=== PATIENT | female | born 1970 | race African-American/Black ===

== ENCOUNTER 2019-03-29 01:19 | Day surgery (SDC) | payer BC, OTHER, SELFPAY ==
[2019-03-25 16:07] VITALS: BMI 40.1
--- NOTE | 2019-03-29 07:57 | WPDANESEPPF ---
Anes - Initial Pre Proc Eval Procedure: Operation Date: 03/29/19 09:00 Proposed Procedures p Colonoscopy, Possible Esophagogastroduodenoscopy - Mateusz Gaston MD Date/Time: 03/29/19 07:57 Surgeon: Mateusz Gaston MD Pre Op Diagnosis: Iron Deficiency Anemia Patient Data Age: 48 Gender: F Height: 5 ft 6 in Weight: 113 kg Allergies Allergy/AdvReac Type Severity Reaction Status Date / Time No Known Allergies Allergy Mild Verified 03/25/19 16:03 Home Medications Medication Instructions Recorded Confirmed Type ferrous sulfate 325 mg (65 mg 325 mg PO TID #270 tablet 12/24/18 03/25/19 Rx iron) tablet cholecalciferol (vitamin D3) 2,000 unit PO DAILY 03/11/19 03/25/19 History [Vitamin D3] lurasidone [Latuda] 40 mg PO DAILY 03/11/19 03/25/19 History tramadol [Ultram] 50 mg PO Q12H PRN 03/25/19 03/25/19 History Patient hx anesthesia problems: none Family hx anesthesia problems: none [facility] Past Medical History Medical History (Updated 03/29/19 @ 07:57 by Fredrick Oliva MD) Abnormal uterine bleeding Anemia Arthritis Bipolar 1 disorder GERD (gastroesophageal reflux disease) Ulcer Surgical History Surgical History (Updated 02/13/19 @ 22:05 by Cassy Hamilton) History of gastric surgery for weight loss History of tubal ligation Hx of section Family History Family History (System 01/03/19 @ 14:33 by Ema Day) Mother Hypertension Family history of diabetes mellitus in first degree relative Mother Family history of type 2 diabetes mellitus Other Diabetes mellitus Social History Social History (System 01/03/19 @ 14:33 by Ema Day) Smoking status: Never smoker Second hand tobacco smoke exposure: No Alcohol intake: current Gender identity (if verbalized by the patient): Female Anes - Eval Final PreProcedure Day of Procedure 03/29/19 07:57 Patient weight: morbidly obese Heart: regular rate and rhythm Lungs: clear to auscultation Airway: Mallampati scale class II Neurological: alert and oriented Last oral intake: >/= 8 hours ASA classification: III Emergent: no Anesthetic plan: proceed Anesthesia type and monitoring: general GIVS and standard monitoring Informed Consent: The patient's anesthetic plan and its attendant risks and benefits were discussed with the patient/family/POA. Questions were solicited and answers provided to the satisfaction of the patient/family/POA.
[2019-03-29 08:14] VITALS: BP 137/90; PULSE 84; RESP 20; TEMP 37.1; O2SAT 100; BMI 39.6
[2019-03-29] MEDS: LACTATED RINGERS 1,000 ML 150 ML IV CONT (08:17)
--- NOTE | 2019-03-29 09:08 | P.CONGI_ITS ---
Assessment and Plan Additional Plan This a 48-year-old black female patient seen in evaluation at the request Dr. Leonard. Also followed by Dr. Erickson. Patient reports that 1 year ago was found to have iron deficiency anemia. She had extreme fatigue at that time. She is improved with iron infusions and oral iron supplementation. patient denies any abdominal pain. She denies any signs of blood loss. Her bowel movements are normal. She denies pain. Her past history is significant for gastric bypass in October of 2017. Current medications include tramadol. Cetirizine. Her go Calciferol. Nitrofurantoin. Calcium. B12. Family history is noncontributory. Physical exam reveals her to be alert. Vital signs stable. HEENT exam unremarkable. Lungs are clear to auscultation and percussion. Heart is without murmur or extra sounds. Abdominal exam is obese. Bowel sounds are present soft nontender with no organomegaly. Digital external rectal exam is normal. Impression 1 iron deficiency anemia. 2. History of gastric bypass. It is possible that the iron deficiency is from her previous bypass. Plan is to evaluate for further with GI endoscopy. Continued iron replacement is advised. Further recommendations will be given after endoscopy. GI Consult Note Consult date/time: 03/29/19 09:08 HPI: Blanca Dinero is a 48 year old female [facility] Past Medical History Medical History (Updated 03/29/19 @ 07:57 by Fredrick Oliva MD) Abnormal uterine bleeding Anemia Arthritis Bipolar 1 disorder GERD (gastroesophageal reflux disease) Ulcer Surgical History Surgical History (Updated 02/13/19 @ 22:05 by Cassy Hamilton) History of gastric surgery for weight loss History of tubal ligation Hx of section Family History Family History (System 01/03/19 @ 14:33 by Ema Day) Mother Hypertension Family history of diabetes mellitus in first degree relative Mother Family history of type 2 diabetes mellitus Other Diabetes mellitus Social History Social History (System 01/03/19 @ 14:33 by Ema Day) Smoking status: Never smoker Second hand tobacco smoke exposure: No Alcohol intake: current Gender identity (if verbalized by the patient): Female Meds Home Medications and Allergies Home Medications Medication Instructions Recorded Confirmed Type ferrous sulfate 325 mg (65 mg 325 mg PO TID #270 tablet 12/24/18 03/29/19 Rx iron) tablet cholecalciferol (vitamin D3) 2,000 unit PO DAILY 03/11/19 03/25/19 History [Vitamin D3] lurasidone [Latuda] 40 mg PO DAILY 03/11/19 03/29/19 History tramadol [Ultram] 50 mg PO Q12H PRN 03/25/19 03/25/19 History Allergies Allergy/AdvReac Type Severity Reaction Status Date / Time No Known Allergies Allergy Mild Verified 03/29/19 08:11 Vital Signs Vital Signs - 24 hr 03/29/19 08:14 Temperature 37.1 C Pulse Rate 84 Respiratory Rate 20 Blood Pressure 137/90 Pulse Oximetry 100
[2019-03-29 11:01] VITALS: BP 118/86; PULSE 85; RESP 18; O2SAT 100
[2019-03-29 11:11] VITALS: BP 123/84; PULSE 74; RESP 19; O2SAT 100
[2019-03-29 11:21] VITALS: BP 141/92; PULSE 68; RESP 16; O2SAT 100
== END 2019-03-29 11:28 | disposition home or self-care (01) ==
PROVIDERS: PCP Family Medicine; Referring Provider Internal Medicine Hematology & Oncology; Visit Provider Internal Medicine Gastroenterology
PROC: 0DJ08ZZ Inspection of Upper Intestinal Tract, Via Natural or Artificial Opening Endoscopic (ICD-10-PCS; CPT 43235; principal; 2019-03-29 09:00)
DX: D50.9 Iron deficiency anemia, unspecified (principal); Z98.84 Bariatric surgery status; K64.8 Other hemorrhoids
CPT/HCPCS: 43235; 45378; J2704; J7120

== ENCOUNTER 2019-08-05 15:22 | Outpatient (CLI) | payer BC, OTHER, SELFPAY ==
[2019-08-05 15:40] LABS: Hematocrit 27.1 % (37.0-47.0); Hemoglobin 7.6 g/dL (12.0-15.0); Mean Corpuscular Hemoglobin 23.3 pg (26-34); Mean Corpuscular Volume 83.1 fl (80-100); Mean Platelet Volume 8.6 fl (7.4-10.4); Platelet Count Result 557 k/mm3 (150-375); Red Blood Count 3.26 M/mm3 (4.2-5.4); Red Cell Distribution Width 16.7 % (11.5-14.5); White Blood Count 8.3 K/mm3 (4.5-10.0)
[2019-08-05 16:33] LABS: Iron 19 ug/dL (37-170)
[2019-08-05 16:42] LABS: Percent Iron Saturation 5 % (20-50)
[2019-08-05 17:09] LABS: Ferritin 5.89 ng/mL (6.24-137)
== END 2019-08-05 15:23 | disposition home or self-care (01) ==
PROVIDERS: PCP Family Medicine; Visit Provider Internal Medicine Hematology & Oncology
DX: D50.9 Iron deficiency anemia, unspecified (principal)
CPT/HCPCS: 36415; 82728; 83540; 83550; 85027

== ENCOUNTER 2020-02-22 09:31 | Outpatient (CLI) | payer BC, SELFPAY ==
[2020-02-22 11:29] LABS: Iron 57 ug/dL (37-170)
[2020-02-22 11:33] LABS: Hematocrit 25.4 % (37.0-47.0); Mean Corpuscular HGB Conc 27.6 g/dl (32-36); Mean Corpuscular Volume 76.3 fl (80-100); Mean Platelet Volume 9.1 fl (7.4-10.4); Platelet Count Result 504 k/mm3 (150-375); Red Blood Count 3.33 M/mm3 (4.2-5.4); Red Cell Distribution Width 16.8 % (11.5-14.5); White Blood Count 8.9 K/mm3 (4.5-10.0)
[2020-02-22 11:39] LABS: Percent Iron Saturation 13 % (20-50)
[2020-02-22 12:04] LABS: Ferritin 4.42 ng/mL (6.24-137)
== END 2020-02-22 09:32 | disposition home or self-care (01) ==
PROVIDERS: PCP Family Medicine; Visit Provider Internal Medicine Hematology & Oncology
DX: D50.9 Iron deficiency anemia, unspecified (principal)
CPT/HCPCS: 36415; 82728; 83540; 83550; 85027

== ENCOUNTER 2020-02-24 10:57 | Emergency (ER) | payer BC, SELFPAY ==
--- NOTE | ~2020-02-24 | XR_ITS ---
XR femur RT min 2V 02/24/2020 11:51 Indication: Right leg pain Procedure: 2 views right femur Comparison: No prior studies for comparison. Findings: There is osteoarthritis of the right knee. No acute fracture or traumatic malalignment. No lytic or blastic lesions. No significant soft tissue abnormality. No foreign bodies. Impression: 1: No acute bone or joint abnormality. 2: Moderate osteoarthritis of the right knee. Reviewed, dictated and finalized at location A. [employer] Impression: 1: No acute bone or joint abnormality. 2: Moderate osteoarthritis of the right knee.
[2020-02-24 11:09] VITALS: BP 156/92; PULSE 87; RESP 20; TEMP 36.5; O2SAT 99
--- NOTE | 2020-02-24 11:33 | ED.LOWEXIN ---
HPI - Extremity Injury (Lower) General Chief Complaint: Extremity Injury, Lower Stated Complaint: RT hip pain Time Seen by Provider: 02/24/20 11:18 Source: RN notes reviewed History of Present Illness HPI Narrative: Patient presents emergency department from home for right mid thigh pain. States the pain began Monday has been present since that time. Pain worse with movement of the leg denies any direct trauma or injury. She denies any pain in the back or buttocks denies any pain in the knee or ankle states she has been taking [id number] medication with minimal relief with last dose yesterday. States she does have a history of anemia and just had her blood checked on the second and follows with Dr. Davila for chronic anemia she denies any fevers or chills abdominal pain bowel or bladder incontinence or any other symptoms Related Data Home Medications Medication Instructions Recorded Confirmed lurasidone 80 mg tablet 80 mg PO DAILY 06/20/19 09/20/19 Allergies Allergy/AdvReac Type Severity Reaction Status Date / Time No Known Allergies Allergy Mild Verified 02/24/20 11:22 Review of Systems Review of Systems: Narrative: Gen.: Denies fevers or chills ENT: Denies congestion Respiratory: Denies shortness of breath or cough CV: Denies chest pain or palpitations GI: Denies abdominal pain nausea, emesis or diarrhea denies bowel or bladder incontinence Musculoskeletal: See HPI Neuro: Denies numbness, tingling, weakness or focal weakness Skin: Denies rash Except as documented, all other systems reviewed and negative PMFSH Past Medical History Medical History Abnormal uterine bleeding Anemia Arthritis Bipolar 1 disorder GERD (gastroesophageal reflux disease) Hyperlipidemia, unspecified Iron deficiency anemia Osteoarthritis Type 2 diabetes mellitus without complications Ulcer Vitamin D deficiency Surgical History Surgical History (Updated 06/20/19 @ 17:14 by Kassi Freedman MD) History of gastric bypass History of gastric surgery for weight loss History of tubal ligation Hx of section Family History Family History (System 01/03/19 @ 14:33 by Ema Day) Mother Hypertension Family history of diabetes mellitus in first degree relative Mother Family history of type 2 diabetes mellitus Other Diabetes mellitus Social History Social History Smoking status: Never smoker Second hand tobacco smoke exposure: No Alcohol intake: current Gender identity (if verbalized by the patient): Female Exam Narrative: Exam Narrative: APPEARANCE: No acute distress, nontoxic, resting in bed EYES: EOMI HEENT: Normocephalic, atraumatic, OMM RESPIRATORY: No respiratory distress Clear to auscultation bilaterally with no rhonchi wheezing or rales. CARDIOVASCULAR: Regular rate and rhythm without murmurs rubs or gallops. ABDOMINAL: Soft, nontender, nondistended, no rebound or guarding MUSCULOSKELETAl: Moves all extremities. No clubbing, cyanosis or edema. Tender palpation of the right mid to proximal thigh no overlying swelling or ecchymosis no tenderness of the hip or knee with full range of motion of both pain with flexion of the hip greater than 45 degrees no tenderness of the buttock Back: No midline thoracic lumbar tenderness palpation NEURO: Awake and alert. Following commands, speech normal, no focal deficits SKIN:: Warm, dry. No rashes lesions or abrasions PSYCHIATRIC: Normal affect/mood, Course Course Emergency Course: Reviewed old records including previous hemoglobin Discussed with Dr. boles patient's hemoglobin results. CT is consistent with prior and will follow as outpatient Discussed with patient results of workup and diagnosis. Discussed need for follow-up with primary care, proper use of medication, and reasons to return to the emergency department. Patient un
[2020-02-24 14:07] VITALS: BP 148/88; PULSE 78; RESP 18; O2SAT 100
== END 2020-02-24 14:11 | disposition home or self-care (01) ==
PROVIDERS: Emergency Provider Emergency Medicine; PCP Family Medicine
DX: M54.31 Sciatica, right side (principal); Z86.2 Personal history of diseases of the blood and blood-forming organs and certain disorders involving the immune mechanism; K21.9 Gastro-esophageal reflux disease without esophagitis; E78.5 Hyperlipidemia, unspecified; E11.9 Type 2 diabetes mellitus without complications; E55.9 Vitamin D deficiency, unspecified; M17.11 Unilateral primary osteoarthritis, right knee
CPT/HCPCS: 73552; 99283

== ENCOUNTER 2021-01-13 16:50 | Emergency (ER) | payer BC, SELFPAY ==
[2021-01-13 16:54] VITALS: BP 150/93; PULSE 91; RESP 16; TEMP 36.7; O2SAT 100
--- NOTE | 2021-01-13 17:00 | ED.EXTPRO ---
HPI - Extremity Problem General Chief complaint: Extremity Problem,Nontraumatic Stated complaint: L FOOT PAIN Time Seen by Provider: 01/13/21 17:00 Source: patient Mode of arrival: ambulatory Limitations: no limitations History of Present Illness HPI Narrative: Blanca Dinero is 50 yo female with a PMH of bipolar disorder who comes to express care with pain across top of L foot x 1 week. states it hurts to even touch it. No swelling, redness, or warmth Related Data Home Medications Medication Instructions Recorded Confirmed lurasidone 80 mg tablet 80 mg PO DAILY 06/20/19 01/13/21 Allergies Allergy/AdvReac Type Severity Reaction Status Date / Time No Known Allergies Allergy Mild Verified 01/13/21 16:58 Review of Systems Review of Systems: CONSTITUTIONAL: Denies fever, chills, sweats. EYES: Denies visual changes, redness, discharge. ENT: Denies rhinorrhea, congestion, sore throat, otalgia. CARDIOVASCULAR: Denies chest pain, palpitations, edema. RESPIRATORY: Denies dyspnea, wheezing, cough GASTROINTESTINAL: Denies abdominal pain, nausea, vomiting, diarrhea. GENITOURINARY: Denies dysuria, hematuria, abnormal discharge SKIN: Denies rash or itching. NEUROLOGIC: Denies numbness, or focal weakness. PSYCHIATRIC: Denies anxiety or depression. Left dorsal foot pain x1 week PMFSH Past Medical History Medical History Abnormal uterine bleeding Anemia Arthritis Bipolar 1 disorder GERD (gastroesophageal reflux disease) Hyperlipidemia, unspecified Iron deficiency anemia Osteoarthritis Type 2 diabetes mellitus without complications Ulcer Vitamin D deficiency Surgical History Surgical History History of gastric bypass (~2018) History of gastric surgery (~2018) for weight loss History of tubal ligation (~2004) Hx of section (~2014) Family History Family History Mother Hypertension Family history of diabetes mellitus in first degree relative Mother Family history of type 2 diabetes mellitus Other Diabetes mellitus Social History Social History Smoking status: Never smoker Second hand tobacco smoke exposure: No Alcohol intake: current Substance use: never Substance use type: does not use Gender identity (if verbalized by the patient): Female Comments At time of signature, I agree with nursing past medical, surgical, social and family history. There is no relevant family history pertinent to the presenting complaint. Exam Narrative: GENERAL: This is a well-nourished, well-developed patient, in mild distress. HEAD: normocephalic, atraumatic. EYES:Sclera clear/white. Vision is grossly intact. EARS: External ears normal, Hearing grossly intact. NOSE: External nose normal without nasal discharge, nares without redness, no rhinorrhea. THROAT: Mucous membranes moist, NECK: Neck supple, non-tender CARDIOVASCULAR: Regular rate and rhythm without murmurs, gallops, or rubs. RESPIRATORY: Clear to auscultation. Breath sounds equal bilaterally. No wheezes, rales, or rhonchi. GASTROINTESTINAL: Abdomen soft, SKIN: warm, intact with no suspicious lesions or rash, good texture and turgor. NEURO: awake, alert, and oriented to person, place and time. There were no obvious focal neurologic abnormalities. Steady gait EXTREMITIES: Normal range of motion. Left dorsal foot pain 2+ pedal pulse is able to flex and extend ankle and move toes with pain; color but no edema, redness, or warmth BACK: Nontender without deformity Course Course Emergency Course: Patient comes with exquisite tenderness to the top of the foot without known injury are trauma her foot is only mildly discolored but no swelling no heat no redness Started on colchicine and tramadol-discussed resting foot, weight loss cheryle
== END 2021-01-13 17:27 | disposition home or self-care (01) ==
PROVIDERS: Emergency Provider Nurse Practitioner; PCP Family Medicine
DX: M10.9 Gout, unspecified (principal); E78.5 Hyperlipidemia, unspecified; E11.9 Type 2 diabetes mellitus without complications
CPT/HCPCS: 99213; G0463

== ENCOUNTER → 2021-09-22 13:50 | Outpatient (CLI) | payer BC, SELFPAY ==
--- NOTE | ~2021-09-22 | XR_ITS ---
XR cervical spine 4-5V DATE: 09/22/2021 14:15 INDICATION: Swelling, mass, lump TECHNIQUE: AP, open-mouth, lateral, swimmer views COMPARISON: None FINDINGS: Mild reversal cervical curvature. C1 and C2 are normally aligned and the odontoid process is intact. No fracture or dislocation or locked facet or prevertebral soft tissue swelling is detected. Mild degenerative disc disease of the mid and lower cervical spine. IMPRESSION: Reversal cervical curvature Mild degenerative change Reviewed, dictated and finalized at location B.
--- NOTE | ~2021-09-22 | XR_ITS ---
XR thoracic spine 3V DATE: 09/22/2021 14:15 INDICATION: Localized swelling, mass and lump, trunk TECHNIQUE: AP, lateral, swimmer views COMPARISON: None FINDINGS: There is mild degenerative spurring of the mid and lower thoracic spine. The thoracic pedic les are intact. No fracture or dislocation or bone destruction is detected. No paraspinal soft tissue thickening. IMPRESSION: Mild degenerative spurring Reviewed, dictated and finalized at location B. IMPRESSION: Mild degenerative spurring
--- NOTE | ~2021-09-22 | US_ITS ---
EXAMINATION: US soft tissue upper back DATE: 09/22/2021 14:20 INDICATION: Localized swelling, mass and lump, trunk. TECHNIQUE: Multiple grayscale and Doppler ultrasound images of the posterior thorax were obtained. COMPARISON: CT abdomen and pelvis 04/26/2012 FINDINGS: There is no abnormal mass in the patient's area of concern in the posterior superior thorax at the midline. IMPRESSION: 1. No abnormal mass in the patient's area of concern in the posterior superior thorax at the midline. Reviewed, dictated and finalized at location A.
== END ==
PROVIDERS: PCP Family Medicine; Visit Provider Family Medicine
DX: R22.2 Localized swelling, mass and lump, trunk (principal); M54.2 Cervicalgia
CPT/HCPCS: 72050; 72072; 76604

== ENCOUNTER 2022-01-05 15:34 | Outpatient (CLI) | payer BC, SELFPAY ==
[2022-01-05 19:41] LABS: Basophils Absolute Auto 0.1 K/mm3 (0.0-0.1); Basophils Percent Auto 0.6 % (0.2-1.2); Eosinophils Absolute Auto 0.1 K/mm3 (0-0.3); Eosinophils Percent Auto 0.9 % (0-4.4); Hematocrit 21.9 % (37.0-47.0); Immature Granulocyte Absolute 0.03 K/mm3 (0.00-0.031); Immature Granulocyte Percent A 0.3 % (0-0.5); Lymphocytes Absolute Auto 1.78 K/mm3 (0.9-3.2); Lymphocytes Percent Auto 19.8 % (18.3-44.2); Mean Corpuscular HGB Conc 26.9 g/dl (32-36); Mean Corpuscular Hemoglobin 19.3 pg (26-34); Mean Corpuscular Volume 71.6 fl (80-100); Monocytes Absolute Auto 0.6 K/mm3 (0.1-0.6); Monocytes Percent Auto 6.6 % (2.6-8.5); Neutrophils Absolute Auto 6.5 K/mm3 (1.3-6.7); Neutrophils Percent Auto 71.8 % (45.5-73.1); Nucleated Red Blood Cells Perc 0.4 % (0.0-0.2); Platelet Count Result 541 k/mm3 (150-375); Red Blood Count 3.06 M/mm3 (4.2-5.4); Red Cell Distribution Width 19.3 % (11.5-14.5)
[2022-01-05 19:57] LABS: Iron 21 ug/dL (37-170)
[2022-01-05 20:06] LABS: Percent Iron Saturation 5 % (20-50)
[2022-01-05 20:07] LABS: Alanine Aminotransferase 19 U/L (6-35); Alkaline Phosphatase 99 U/L (38-126); Anion Gap 10 mmol/L (8-16); Aspartate Amino Transferase 24 U/L (14-36); Bilirubin,Total 0.3 mg/dL (0.2-1.3); Blood Urea Nitrogen 20 mg/dL (7-17); Calcium 8.6 mg/dL (8.4-10.2); Carbon Dioxide 22 mmol/L (22-30); Chloride 108 mmol/L (98-107); Estimated Glomerular Filt Rate > 60; Glucose 102 mg/dL (65-110); Potassium 4.2 mmol/L (3.4-5.0); Sodium 140 mmol/L (137-145)
[2022-01-05 20:32] LABS: Ferritin 3.11 ng/mL (11.1-264)
[2022-01-05 20:51] LABS: Hemoglobin 5.9 g/dL (12.0-15.0); Platelet Estimate Increased (Adequate)
[2022-01-05 20:52] LABS: Anisocytosis 1+ (NORMAL); Hypochromasia 1+ (NORMAL); Microcytosis 2+ (NORMAL); Ovalocytes 1+ (NORMAL); Schistocytes None Seen (NORMAL)
== END 2022-01-05 15:35 | disposition home or self-care (01) ==
LOC: ANHGOSHLAB 15:35
PROVIDERS: PCP Family Medicine; Visit Provider Family Medicine
DX: D50.9 Iron deficiency anemia, unspecified (principal); I10 Essential (primary) hypertension
CPT/HCPCS: 36415; 80053; 82728; 83540; 83550; 85025

== ENCOUNTER 2022-01-05 21:30 | Observation (INO) | payer BC, SELFPAY ==
[2022-01-05 22:04] VITALS: BP 132/82; PULSE 78; RESP 18; TEMP 37.1; O2SAT 100
[2022-01-05 22:30] VITALS: BP 116/79; PULSE 74; RESP 13; O2SAT 99
[2022-01-05 22:35] LABS: Hematocrit 22.3 % (37.0-47.0); Mean Corpuscular HGB Conc 26.9 g/dl (32-36); Mean Corpuscular Hemoglobin 19.9 pg (26-34); Mean Corpuscular Volume 73.8 fl (80-100); Mean Platelet Volume 8.7 fl (7.4-10.4); Platelet Count Result 517 k/mm3 (150-375); Red Blood Count 3.02 M/mm3 (4.2-5.4); Red Cell Distribution Width 19.3 % (11.5-14.5); White Blood Count 9.5 K/mm3 (4.5-10.0)
[2022-01-05 22:45] VITALS: BP 101/82; PULSE 74; RESP 20; O2SAT 100
[2022-01-05 22:45] LABS: Alanine Aminotransferase 18 U/L (6-35); Albumin Level 3.9 g/dL (3.5-5.1); Alkaline Phosphatase 85 U/L (38-126); Anion Gap 11 mmol/L (8-16); Aspartate Amino Transferase 37 U/L (14-36); Bilirubin,Total 0.2 mg/dL (0.2-1.3); Blood Urea Nitrogen 20 mg/dL (7-17); Calcium 8.2 mg/dL (8.4-10.2); Carbon Dioxide 25 mmol/L (22-30); Chloride 105 mmol/L (98-107); Estimated CRCL calculation 103 ml/min; Estimated Glomerular Filt Rate > 60; Glucose 94 mg/dL (65-110); Potassium 3.8 mmol/L (3.4-5.0); Sodium 141 mmol/L (137-145)
[2022-01-05 22:58] LABS: Anisocytosis 2+ (NORMAL); Band Neutrophils Percent 1 % (0-6); Basophils Absolute Manual 0.09 K/mm3 (0.0-0.1); Basophils Percent Manual 1 % (0-1); Eosinophils Absolute Manual 0.28 K/mm3 (0.02-0.5); Eosinophils Percent Manual 3 % (0-4); Lymphocytes Absolute Manual 1.99 K/mm3 (1.1-4.5); Metamyelocytes Percent 1 %; Microcytosis 2+ (NORMAL); Monocytes Absolute Manual 0.38 K/mm3 (0.1-0.90); Monocytes Percent Manual 4 % (3-9); Myelocytes Percent 1 %; Neutrophils Absolute Manual 6.55 K/mm3 (1.7-7.2); Neutrophils Percent Manual 68 % (46-73); Platelet Estimate Adequate (Adequate); Total Cells Counted 100
[2022-01-05 22:59] LABS: Hypochromasia 3+ (NORMAL); Macrocytosis 1+ (NORMAL); Ovalocytes 2+ (NORMAL); Poikilocytosis 2+ (NORMAL); Schistocytes 1+ (NORMAL); Target Cells 1+ (NORMAL); Tear Drop Cells 1+ (NORMAL)
[2022-01-05 23:00] LABS: Acanthocytes 1+ (NORMAL); Burr Cells 1+ (NORMAL)
--- NOTE | 2022-01-05 23:03 | PM.IMHP ---
H&P: HPI History of Present Illness Date/Time: 01/05/22 23:03 Chief Complaint: 51 years old female with past medical history of hypertension diabetes gout bipolar disorder gastric bypass and iron deficiency anemia presents to the hospital as a referral from her PCP patient was complaining of increased tiredness generalized weakness worsening gradually aggravated with activity patient denies fever chills vomiting blood bleeding per rectum patient has had her menopause last menses was was last April was normal on the ER hemoglobin was found to be 6 patient had blood transfusion admitted to the hospital for further evaluation and treatment occult blood was negative Review of Systems Review of Systems: Twelve system review was done negative except above PMFSH Past Medical History Medical History (Updated 01/05/22 @ 23:06 by Tim Diehl MD) Abnormal uterine bleeding Anemia Arthritis Bipolar 1 disorder Depression GERD (gastroesophageal reflux disease) Gout Hyperlipidemia, unspecified Iron deficiency anemia Kidney stone Osteoarthritis Type 2 diabetes mellitus without complications Ulcer Vitamin D deficiency Surgical History Surgical History History of gastric bypass (~10/2017) History of lithotripsy ESWL for right renal calculus. History of tubal ligation (~2004) Hx of section (~2014) Family History Family History Mother Hypertension Family history of diabetes mellitus in first degree relative Mother Family history of type 2 diabetes mellitus Other Diabetes mellitus Social History Social History Social History: caffeine daily Smoking status: Never smoker Second hand tobacco smoke exposure: No Alcohol intake: current Alcohol use details: occasionally-liquor Substance use: never Substance use type: does not use Gender identity (if verbalized by the patient): Female Meds Home Medications and Allergies Home Medications Medication Instructions Recorded Confirmed Type lurasidone 80 mg tablet 80 mg PO DAILY 06/20/19 01/04/22 History colchicine 0.6 mg capsule 0.6 mg PO BID #10 caps 06/01/21 01/04/22 Rx cetirizine 10 mg capsule (Zyrtec) 10 mg PO DAILY #90 caps 06/29/21 01/04/22 Rx cholecalciferol (vitamin D3) 25 25 mcg PO DAILY 06/29/21 01/04/22 History mcg (1,000 unit) capsule ferrous sulfate 325 mg (65 mg 325 mg PO DAILY #90 tabs 06/29/21 01/04/22 Rx iron) tablet (FeroSul) miconazole nitrate 2 % topical 1 applic topical BID #30 grams 07/06/21 01/04/22 Rx cream tramadol 50 mg tablet 50 mg PO Q8H PRN pain #180 tabs 01/05/22 Rx Allergies Allergy/AdvReac Type Severity Reaction Status Date / Time No Known Allergies Allergy Mild Verified 01/05/22 22:09 Vital Signs Vital Signs - 24 hr 01/05/22 22:04 Temperature 98.8 F Pulse Rate 78 Respiratory Rate 18 Blood Pressure 132/82 Pulse Oximetry 100 Oxygen Delivery Room Air Exam Narrative: GENERAL: Well appearing, well-nourished, non-toxic, in no acute distress. HEAD: Normocephalic, atraumatic. NECK: Supple. No adenopathy, no masses. RESPIRATORY: Airway patent, respirations nonlabored. Clear to auscultation bilaterally, no rales, rhonchi, wheezing. CARDIOVASCULAR: Regular rate and rhythm without murmurs, rubs, or gallops. Peripheral pulses 2+ and equal bilaterally. ABDOMINAL: Soft, nontender, nondistended, no hepatosplenomegaly. Normoactive BS. MUSCULOSKELETAL: Moves all extremities. Strength/ROM intact without gross deformities or TTP. No edema. No calf tenderness. No chest wall tenderness palpation. SKIN: Warm, dry, normal color. No rashes. NEURO: A&O X3. Speech clear. Cranial nerves II-XII grossly intact. Steady gait. No ataxic movements. PSYCHIATRIC: Appropriate mood and affect. Normal interaction. H&P: Results Labs Labs: [facility]
[2022-01-05 23:15] VITALS: BP 120/81; PULSE 73; RESP 18; O2SAT 99
--- NOTE | 2022-01-05 23:26 | ED.GENADULT ---
HPI - General Adult General Chief complaint: Recheck/Abnormal Lab/Rx Stated complaint: SOabnormal labs Time Seen by Provider: 01/05/22 22:36 History of Present Illness HPI narrative: Patient is a 51-year-old female who presents emergency department with chief complaint of abnormal labs. The patient reports he has history of a gastric bypass and has had issues with anemia. The patient states that for some time she is been having increasing shortness of breath with exertion reports she feels extremely tired saw her primary care provider who did laboratory studies that showed her to have a hemoglobin of 5.9 patient was instructed to come to the emergency department as she needed a blood transfusion. Patient reports she is had an endoscopy upper and lower in the past year and reports that she is had no blood in her stool or vomiting blood. The patient states that she is postmenopausal and has not had a period in several years. Related Data Home Medications Medication Instructions Recorded Confirmed lurasidone 80 mg tablet 80 mg PO DAILY 06/20/19 01/04/22 cholecalciferol (vitamin D3) 25 25 mcg PO DAILY 06/29/21 01/04/22 mcg (1,000 unit) capsule Allergies Allergy/AdvReac Type Severity Reaction Status Date / Time No Known Allergies Allergy Mild Verified 01/05/22 22:09 Review of Systems Review of Systems: A 10 system review of systems was completed on the patient and is negative except for what is stated in the HPI. Nursing and ancillary documentation was reviewed. [facility] Past Medical History Medical History Abnormal uterine bleeding Anemia Arthritis Bipolar 1 disorder Depression GERD (gastroesophageal reflux disease) Gout Hyperlipidemia, unspecified Iron deficiency anemia Kidney stone Osteoarthritis Type 2 diabetes mellitus without complications Ulcer Vitamin D deficiency Surgical History Surgical History History of gastric bypass (~10/2017) History of lithotripsy ESWL for right renal calculus. History of tubal ligation (~2004) Hx of section (~2014) Family History Family History Mother Hypertension Family history of diabetes mellitus in first degree relative Mother Family history of type 2 diabetes mellitus Other Diabetes mellitus Social History Social History Social History: caffeine daily Smoking status: Never smoker Second hand tobacco smoke exposure: No Alcohol intake: current Alcohol use details: occasionally-liquor Substance use: never Substance use type: does not use Gender identity (if verbalized by the patient): Female Exam Narrative: GENERAL: Well-appearing, well-nourished, and in no acute distress. HEAD: Normocephalic, atraumatic. EYES: PERRLA and EOMI. ENT: Nares clear, no rhinorrhea or epistaxis. Mucous membranes moist. NECK: Supple. CHEST: Clear to auscultation. No respiratory distress. HEART: Regular rate and rhythm. No murmur heard. Normal peripheral pulses. ABDOMEN: Soft, nontender, nondistended, normal active bowel sounds. : Guaiac negative stool EXTREMITIES: Normal range of motion. No edema. SKIN: Warm, dry, no rash. NEURO: No focal deficits. Alert and oriented x3. PSYCH: Normal mood and affect. Course Vital Signs Vital signs: Vital Signs Temperature 37.1 C 01/05/22 22:04 Pulse Rate 78 01/05/22 22:04 Respiratory Rate 18 01/05/22 22:04 Blood Pressure 132/82 01/05/22 22:04 Pulse Oximetry 100 01/05/22 22:04 Oxygen Delivery Room Air 01/05/22 22:04 Temperature 37.1 C 01/05/22 22:04 Pulse Rate 78 01/05/22 22:04 Respiratory Rate 18 01/05/22 22:04 Blood Pressure 132/82 01/05/22 22:04 Pulse Oximetry 100 01/05/22 22:04 Oxygen Delivery Room Air 01/05/22
[2022-01-05 23:30] VITALS: BP 124/82; PULSE 75; RESP 18; O2SAT 99
[2022-01-06] VITALS (15 sets, daily range): BP systolic 91–143; BP diastolic 58–91; PULSE 65–89; RESP 16–20; TEMP 36–36.8; O2SAT 98–100; BMI 47.7
[2022-01-06 00:32] LABS: Alanine Aminotransferase 20 U/L (6-35); Alkaline Phosphatase 90 U/L (38-126); Anion Gap 9 mmol/L (8-16); Aspartate Amino Transferase 24 U/L (14-36); Bilirubin,Total 0.3 mg/dL (0.2-1.3); Blood Urea Nitrogen 19 mg/dL (7-17); Calcium 8.2 mg/dL (8.4-10.2); Carbon Dioxide 23 mmol/L (22-30); Chloride 106 mmol/L (98-107); Estimated CRCL calculation 103 ml/min; Estimated Glomerular Filt Rate > 60; Glucose 109 mg/dL (65-110); Lactate Dehydrogenase 176 U/L (120-246); Sodium 138 mmol/L (137-145)
[2022-01-06 00:59] LABS: Influenza A QL RT-PCR Negative (Negative); Influenza B QL RT-PCR Negative (Negative); SARS-CoV-2 RNA PCR Negative
[2022-01-06 01:16] LABS: Iron 28 ug/dL (37-170)
[2022-01-06 01:25] LABS: Percent Iron Saturation 6 % (20-50)
[2022-01-06 01:38] LABS: Folic Acid 17.8 ng/mL (2.76->20)
--- NOTE | 2022-01-06 02:53 | ADMGEN ---
This patient, Blanca Dinero, was admitted to [facility] Surg Room 311-01. Patient/family oriented to hospital policies and general routines including ID bracelet, bed and alarms, visiting hours, pain management, procedures, bathroom and other care routines, personal items, smoking policy, room service/diet, and visiting hours. Information on how to activate the Rapid Response Team has been discussed. Patient/Family are encouraged to report perceived risks to care and to ask questions if they do not understand what they are told or what they should do.
[2022-01-06] MEDS: MELATONIN 3 MG TABLET PO (03:30)
[2022-01-06] MEDS: traMADol HCL (*CRX) 50 MG TABLET PO (08:17)
[2022-01-06 08:33] LABS: Glucose Point of Care 98 mg/dl (65-105)
[2022-01-06] MEDS: COLCHICINE 0.6 MG TABLET PO ×2 (09:29→17:42)
[2022-01-06] MEDS: FERROUS SULFATE 324 MG TABLET PO (09:29)
[2022-01-06] MEDS: CHOLECALCIFEROL 1,000 UNITS TABLET 1000 UNITS PO (09:29)
[2022-01-06] MEDS: LORATADINE 10 MG TABLET PO (09:29)
[2022-01-06] MEDS: PANTOPRAZOLE SODIUM IV 40 MG VIAL IV PUSH ×2 (09:31→17:44)
[2022-01-06 11:32] LABS: Glucose Point of Care 100 mg/dl (65-105)
--- NOTE | 2022-01-06 12:21 | PM.IMPN ---
Progress Note: A&P Assessment and Plan (1) History of gastric bypass: Onset Date: ~10/2017 Code(s): Z98.84 - Bariatric surgery status Status: Acute (2) Type 2 diabetes mellitus without complications: Qualifiers: Diabetes mellitus long term care phlebotomist insulin use: without prison use Qualified Code(s): E11.9 - Type 2 diabetes mellitus without complications Code(s): E11.9 - Type 2 diabetes mellitus without complications Status: Acute Assessment and Plan: Yearly eye exam and foot exam. HBA1c ( goal <7.0%) , Renal functions, Liver panel every 3 months Monitor vitamin B12 levels Optimize DELROY-inhibitor and statin Routine glucose monitoring. Watch for Hypoglycemia. BMI goal < 25 Yearly eye exam and foot exam Exercise, Diet ( low salt- low carb) Weight loss Routinely check for urine microalbuminuria Routine follow-up with PCP and helpdesk analyst (3) Hyperlipidemia, unspecified: Qualifiers: Hyperlipidemia type: unspecified Qualified Code(s): E78.5 - Hyperlipidemia, unspecified Code(s): E78.5 - Hyperlipidemia, unspecified Status: Acute Assessment and Plan: Resume statin (4) Essential (primary) hypertension: Code(s): I10 - Essential (primary) hypertension Status: Acute Assessment and Plan: resume medications (5) Anemia: Code(s): D64.9 - Anemia, unspecified Status: Acute Assessment and Plan: Probable nutritional Stool for occult blood. negative TIBC and iron levels, vitamin B12 , folic acid,TSH, CBC, Ret Count, MCV, peripheral blood flow Iron supplement if needed currently getting 2 units of blood transfusion Plan DVT prophylaxis. GI prophylaxis. All records reviewed Discussed plan of care with the nursing staff and with the patient in detail. Answered all questions and concerns from the patient. All labs have been reviewed. Code status updated dictation may have been done utilizing a voice recognition system. Attempts have been made to correct errors. However, there may be uncorrected grammatical, spelling, and recognition errors present. Subjective Date/time seen: 01/06/22 12:21 Interval history: no new complaint Exam Const: General: comfortable HENMT: Ears: TM's normal bilaterally Eyes: General: appearance normal, both eyes and all related structures Pupils: Equal, round and reactive pupils present Neck: Neck: supple and no JVD Resp: Effort & Inspection: normal respiratory effort Cardio: Rate: regular rate Rhythm: regular rhythm GI: GI Palp: Yes Soft to palpation, No Tenderness to palpation present (GI) and No Guarding due to palpation present (GI) Auscultation: normal bowel sounds Skin: General skin exam: normal color Neuro: General: gait normal Extrem: General: normal to inspection Psych: Mental Status: mental status grossly normal Objective Data Vital Signs Vital Signs: Vital Signs - 24 hr 01/05/22 22:04 01/05/22 22:30 01/05/22 22:45 Temperature 37.1 C Pulse Rate 78 74 74 Respiratory Rate 18 13 20 Blood Pressure 132/82 116/79 101/82 Pulse Oximetry 100 99 100 Oxygen Delivery Room Air 01/05/22 23:15 01/05/22 23:30 01/06/22 01:16 Temperature Pulse Rate 73 75 77 Respiratory Rate 18 18 20 Blood Pressure 120/81 124/82 104/60 Pulse Oximetry 99 99 99 Oxygen Delivery 01/06/22 02:05 01/06/22 02:10 01/06/22 02:20 Temperature 36.7 C 36.7 C 36.8 C Pulse Rate 77 78 79 Respiratory Rate 18 17 17 Blood Pressure 113/79 113/79 121/82 Pulse Oximetry 99 98 99 Oxygen Delivery 01/06/22 03:27 01/06/22 04:41 01/06/22 03:20 Temperature 36.6 C 36.4 C L Pulse Rate 89 89 71 Respiratory Rate 20 20 18 Blood Pressure 143/91 H 110/63 Pulse Oximetry 100 100 100 Oxygen Delivery Room Air 01/06/22 06:00 01/06/22 06:06 01/06/22 06:22 Temperature 36.4 C L 36.6 C 36.3 C L Pulse Rate 72 76 71 Respiratory Rate 20 17 16 Blood Pressure 91/58 L
[2022-01-06 13:27] LABS: Hematocrit 25.4 % (37.0-47.0); Hemoglobin 7.3 g/dL (12.0-15.0); Mean Corpuscular HGB Conc 28.7 g/dl (32-36); Mean Corpuscular Hemoglobin 21.1 pg (26-34); Mean Corpuscular Volume 73.4 fl (80-100); Mean Platelet Volume 8.5 fl (7.4-10.4); Platelet Count Result 462 k/mm3 (150-375); Red Blood Count 3.46 M/mm3 (4.2-5.4); White Blood Count 7.2 K/mm3 (4.5-10.0)
[2022-01-06 16:34] LABS: Glucose Point of Care 81 mg/dl (65-105)
[2022-01-06 21:03] LABS: Glucose Point of Care 94 mg/dl (65-105)
[2022-01-06 22:58] LABS: Hematocrit 24.1 % (37.0-47.0)
[2022-01-06 23:07] LABS: Hemoglobin 6.9 g/dL (12.0-15.0)
--- NOTE | 2022-01-06 23:09 | PC.NURSE ---
hemoglobin critical at 6.9 reported to Kaelyn Bonds NP N.o x2 units of blood
[2022-01-06] MEDS: SODIUM CHLORIDE 0.9% IV 250 ML 30 ML IV CONT (23:38)
[2022-01-06] MEDS: TUBING, BLOOD PLUM PUMP TUBING 1 EACH XX (23:39)
[2022-01-07 00:19] VITALS: BP 114/71; PULSE 72; RESP 18; TEMP 36.7; O2SAT 100
--- NOTE | 2022-01-07 00:45 | PC.NURSE ---
blood infusing tolerated well, continue to monitor.
[2022-01-07 00:49] VITALS: BP 117/77; PULSE 74; RESP 21; TEMP 36.2; O2SAT 100
[2022-01-07 02:15] VITALS: BP 103/59; PULSE 76; RESP 20; TEMP 36.1; O2SAT 100
--- NOTE | 2022-01-07 03:30 | PC.NURSE ---
first unit of blood completed 215 am vs stable 103/59 20 76 100%ra 97.0 , down time, picked up second unit at 208, started second with Lionel Aviles at 215 am. pt tolerating infusion well 15 minute vitals stable 123/81 97.5 99% 74 18, continue to monitor, will recheck H&H 1hr after 2 units completed.
--- NOTE | 2022-01-07 04:30 | PC.NURSE ---
2 unit blood infused vital sign stable 97.3, 20, 67, 99% ra 127/85 blood bank unable to issue blood in compute r/t Parudi was down, awaiting blood bank to issue blood for documentation in computer. Pt tolerated blood well, H&H q6hrs next H&H at 600am. Will continue to monitor pt at this time.
--- NOTE | 2022-01-07 05:13 | PC.NURSE ---
paper charted second unit of blood place in pt chart under consents with updated blood consent.
[2022-01-07 06:00] VITALS: BP 118/77; PULSE 68; RESP 21; TEMP 36.4; O2SAT 100
--- NOTE | 2022-01-07 06:07 | PC.NURSE ---
Standardized Safety up and running now blood bank didn't back chart issusing blood at 205 am, unable to proper chart start time at 215 am. Blood finished at 427 am pt tolerated well blood vitals intital 215 am 103/59 76 20 97.0 100% ra 15 minute 230 am: 123/81 74 18 97.5 99% 330 am 118/77 68 18 97.6 100% ra 427 am 127/83 67 20 97.3 99% ra
[2022-01-07 07:37] LABS: Basophils Absolute Auto 0.1 K/mm3 (0.0-0.1); Basophils Percent Auto 0.7 % (0.2-1.2); Eosinophils Absolute Auto 0.1 K/mm3 (0-0.3); Eosinophils Percent Auto 1.5 % (0-4.4); Hemoglobin 8.5 g/dL (12.0-15.0); Immature Granulocyte Absolute 0.03 K/mm3 (0.00-0.031); Immature Granulocyte Percent A 0.4 % (0-0.5); Lymphocytes Absolute Auto 1.63 K/mm3 (0.9-3.2); Lymphocytes Percent Auto 24.4 % (18.3-44.2); Mean Corpuscular HGB Conc 29.3 g/dl (32-36); Mean Corpuscular Hemoglobin 22.6 pg (26-34); Mean Corpuscular Volume 77.1 fl (80-100); Mean Platelet Volume 8.9 fl (7.4-10.4); Monocytes Absolute Auto 0.6 K/mm3 (0.1-0.6); Monocytes Percent Auto 8.7 % (2.6-8.5); Neutrophils Absolute Auto 4.3 K/mm3 (1.3-6.7); Neutrophils Percent Auto 64.3 % (45.5-73.1); Nucleated Red Blood Cells Perc 0.3 % (0.0-0.2); Platelet Count Result 461 k/mm3 (150-375); Red Blood Count 3.76 M/mm3 (4.2-5.4); White Blood Count 6.7 K/mm3 (4.5-10.0)
[2022-01-07 07:55] LABS: Hematocrit 29.8 % (37.0-47.0); Hemoglobin 8.9 g/dL (12.0-15.0)
[2022-01-07 08:12] LABS: Glucose Point of Care 95 mg/dl (65-105)
[2022-01-07 08:12] LABS: Hypochromasia 2+ (NORMAL); Platelet Estimate Increased (Adequate)
[2022-01-07 08:13] LABS: Anisocytosis 2+ (NORMAL); Poikilocytosis 1+ (NORMAL); Schistocytes 1+ (NORMAL)
[2022-01-07 08:24] LABS: Alanine Aminotransferase 17 U/L (6-35); Albumin Level 3.6 g/dL (3.5-5.1); Alkaline Phosphatase 75 U/L (38-126); Anion Gap 11 mmol/L (8-16); Aspartate Amino Transferase 33 U/L (14-36); Bilirubin,Total 0.3 mg/dL (0.2-1.3); Blood Urea Nitrogen 11 mg/dL (7-17); Calcium 8.3 mg/dL (8.4-10.2); Carbon Dioxide 27 mmol/L (22-30); Chloride 103 mmol/L (98-107); Estimated CRCL calculation 102 ml/min; Estimated Glomerular Filt Rate > 60; Glucose 88 mg/dL (65-110); Potassium 3.9 mmol/L (3.4-5.0); Sodium 141 mmol/L (137-145)
[2022-01-07] MEDS: CHOLECALCIFEROL 1,000 UNITS TABLET 1000 UNITS PO (09:08)
[2022-01-07] MEDS: FERROUS SULFATE 324 MG TABLET PO (09:08)
[2022-01-07] MEDS: PANTOPRAZOLE SODIUM IV 40 MG VIAL IV PUSH (09:08)
--- NOTE | 2022-01-07 10:34 | PM.DS ---
DS: Admitting Diagnosis Discharge Date Iron deficiency anemia Admitting Diagnosis Iron deficiency anemia DS: Discharge Diagnosis Discharge Diagnosis (1) Anemia: Code(s): D64.9 - Anemia, unspecified Status: Acute (2) Iron deficiency anemia: Qualifiers: Iron deficiency anemia type: unspecified iron deficiency Qualified Code(s): D50.9 - Iron deficiency anemia, unspecified Code(s): D50.9 - Iron deficiency anemia, unspecified Status: Acute (3) History of gastric bypass: Onset Date: ~10/2017 Code(s): Z98.84 - Bariatric surgery status Status: Acute (4) Type 2 diabetes mellitus without complications: Qualifiers: Diabetes mellitus fdc insulin use: without roasterman use Qualified Code(s): E11.9 - Type 2 diabetes mellitus without complications Code(s): E11.9 - Type 2 diabetes mellitus without complications Status: Acute (5) Essential (primary) hypertension: Code(s): I10 - Essential (primary) hypertension Status: Acute DS: Summary Hospital Course Hospital Course: Patient is a pleasant 51-year-old female who came to the hospital with history of anemia. 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 Patient got 2 units of blood hemoglobin is 8.5 now no history of GI bleed patient is doing well patient has been advised to follow-up with the GI as an outpatient for a possible endoscopy and a colonoscopy. The patient does have iron deficiency anemia. Spoke to patient at length about dietary modifications patient understands agrees with management DC home Status at Discharge Overall status at discharge: patient is back to baseline Time Spent with Patient Time attestation: Total time spent providing and/or coordinating discharge services: Exam Narrative: GENERAL: Well appearing, well-nourished, non-toxic, in no acute distress. HEAD: Normocephalic, atraumatic. NECK: Supple. No adenopathy, no masses. RESPIRATORY: Airway patent, respirations nonlabored. Clear to auscultation bilaterally, no rales, rhonchi, wheezing. CARDIOVASCULAR: Regular rate and rhythm without murmurs, rubs, or gallops. Peripheral pulses 2+ and equal bilaterally. ABDOMINAL: Soft, nontender, nondistended, no hepatosplenomegaly. Normoactive BS. MUSCULOSKELETAL: no Epigastric and no hypochondrial tenderness SKIN: Warm, dry, normal color. No rashes. NEURO: A&O X3. Moves all extremities PSYCHIATRIC: Appropriate mood and affect. Normal interaction. DS: Data Data Completed and Pending Labs on day of discharge: Labs from last 24 hours 01/07/22 01/07/22 01/07/22 07:45 07:17 06:13 WBC RBC Hgb 8.9 L Hct 29.8 L MCV MCH MCHC RDW Plt Count MPV Immature Gran % (Auto) Neut % (Auto) Lymph % (Auto) Jewell % (Auto) Eos % (Auto) Baso % (Auto) Lymph # (Auto) Jewell # (Auto) Eos # (Auto) Baso # (Auto) Abs Immat Gran (auto) Absolute Neuts (auto) Absolute Nucleated RBC Nucleated RBC % Platelet Estimate % Immature Plt Fraction Hypochromasia Poikilocytosis Anisocytosis Schistocytes Sodium 141 Potassium 3.9 Chloride 103 Carbon Dioxide 27 Anion Gap 11 BUN 11 D Creatinine 0.80 Estim Creat Clear Calc 102 Estimated GFR > 60 Glucose 88 POC Capillary Glucose 95 Calcium 8.3 L Total Bilirubin 0.3 AST 33 ALT 17 Alkaline Phosphatase 75 Total Protein 7.0 Albumin 3.6 Blood Type Antibody Screen Crossmatch 01/07/22 01/06/22 01/06/22 06:13 22:53 21:01 WBC 6.7 RBC 3.76 L Hgb 8.5 L 6.9 L* Hct 29.0 L 24.1 L MCV 77.1 L D MCH 22.6 L D MCHC 29.3 L RDW 21.0 H Plt Count 461 H MPV 8.9 Betty
[2022-01-12 04:44] LABS: Haptoglobin 167 mg/dL (43-212)
== END 2022-01-07 11:15 | disposition home or self-care (01) ==
LOC: ANHED 23:28 → ANH3MEDSUR 01-06 01:24
PROVIDERS: Nurse Practitioner; Admitting Provider Internal Medicine; Emergency Provider Emergency Medicine; PCP Family Medicine; Visit Provider Internal Medicine
DX: D50.0 Iron deficiency anemia secondary to blood loss (chronic) (principal); R79.9 Abnormal finding of blood chemistry, unspecified; Z98.84 Bariatric surgery status; E11.9 Type 2 diabetes mellitus without complications; I10 Essential (primary) hypertension; R06.09 Other forms of dyspnea; F31.9 Bipolar disorder, unspecified; K21.9 Gastro-esophageal reflux disease without esophagitis; M10.9 Gout, unspecified; E78.5 Hyperlipidemia, unspecified; Z87.442 Personal history of urinary calculi; Z20.822 Contact with and (suspected) exposure to COVID-19; M19.90 Unspecified osteoarthritis, unspecified site; E55.9 Vitamin D deficiency, unspecified; Z83.3 Family history of diabetes mellitus; Z82.49 Family history of ischemic heart disease and other diseases of the circulatory system; F10.90 Alcohol use, unspecified, uncomplicated; Z79.891 Long term (current) use of opiate analgesic; Z79.899 Other long term (current) drug therapy
CPT/HCPCS: 36415; 36430; 80053; 82607; 82746; 82948; 83010; 83540; 83550; 83615; 85014; 85018; 85025; 85027; 86850; 86900; 86901; 86923; 87636; 96374; 96376; 99285; A9270; C9113; G0378; J7050; P9016

== ENCOUNTER 2022-04-20 15:31 | Outpatient (CLI) | payer BC, SELFPAY ==
[2022-04-20 15:55] LABS: Basophils Absolute Auto 0.1 K/mm3 (0.0-0.1); Basophils Percent Auto 0.5 % (0.2-1.2); Eosinophils Absolute Auto 0.1 K/mm3 (0-0.3); Eosinophils Percent Auto 0.9 % (0-4.4); Hematocrit 27.5 % (37.0-47.0); Hemoglobin 7.8 g/dL (12.0-15.0); Immature Granulocyte Absolute 0.03 K/mm3 (0.00-0.031); Immature Granulocyte Percent A 0.3 % (0-0.5); Lymphocytes Absolute Auto 2.02 K/mm3 (0.9-3.2); Lymphocytes Percent Auto 21.9 % (18.3-44.2); Mean Corpuscular HGB Conc 28.4 g/dl (32-36); Mean Corpuscular Hemoglobin 22.7 pg (26-34); Mean Corpuscular Volume 80.2 fl (80-100); Monocytes Absolute Auto 0.6 K/mm3 (0.1-0.6); Monocytes Percent Auto 6.9 % (2.6-8.5); Neutrophils Absolute Auto 6.4 K/mm3 (1.3-6.7); Neutrophils Percent Auto 69.5 % (45.5-73.1); Platelet Count Result 492 k/mm3 (150-375); Red Blood Count 3.43 M/mm3 (4.2-5.4); Red Cell Distribution Width 18.8 % (11.5-14.5); White Blood Count 9.2 K/mm3 (4.5-10.0)
[2022-04-20 16:03] LABS: Hypochromasia 1+ (NORMAL); Ovalocytes 1+ (NORMAL); Platelet Estimate Increased (Adequate); Poikilocytosis 1+ (NORMAL); Schistocytes None Seen (NORMAL)
[2022-04-20 17:37] LABS: Alanine Aminotransferase 23 U/L (6-35); Albumin Level 4.2 g/dL (3.5-5.1); Alkaline Phosphatase 74 U/L (38-126); Anion Gap 8 mmol/L (8-16); Aspartate Amino Transferase 41 U/L (14-36); Bilirubin,Total 0.4 mg/dL (0.2-1.3); Blood Urea Nitrogen 17 mg/dL (7-17); Calcium 8.6 mg/dL (8.4-10.2); Carbon Dioxide 26 mmol/L (22-30); Chloride 107 mmol/L (98-107); Estimated Glomerular Filt Rate > 60; Glucose 74 mg/dL (65-110); Potassium 4.4 mmol/L (3.4-5.0); Sodium 141 mmol/L (137-145)
[2022-04-20 17:44] LABS: Iron 29 ug/dL (37-170); Percent Iron Saturation 6 % (20-50)
[2022-04-20 18:43] LABS: Folic Acid > 20.0 ng/mL (2.76->20)
== END 2022-04-20 15:32 | disposition home or self-care (01) ==
LOC: ANHLAB 15:32
PROVIDERS: PCP Family Medicine; Visit Provider Internal Medicine Hematology & Oncology
DX: D64.9 Anemia, unspecified (principal)
CPT/HCPCS: 36415; 80053; 82607; 82728; 82746; 83540; 83550; 85025

== ENCOUNTER 2022-07-01 08:10 | Emergency (ER) | payer OTHER, BC, SELFPAY ==
--- NOTE | ~2022-07-01 | CT_ITS ---
Noncontrast CT scan of the cervical spine Technique: Multiple contiguous axial [address] images of the cervical spine were obtained and rec onstructed in 2D sagittal and coronal planes on the acquisition scanner. Dose reduction technique was used on this scan by utilizing automated exposure control, adjustment of the mA and/or kV according to patient size. Clinical History: Pain Findings: No fractures or dislocations. There are minimal degenerative disc changes in the cervical spine. There is a small left foraminal region disc osteophyte complex at C5-C6. No prevertebral soft tissue swelling. Impression: No fracture or subluxation of the cervical spine. Minimal degenerative change, as above. Reviewed, dictated and finalized at location . Impression: No fracture or subluxation of the cervical spine. Minimal degenerative change, as above.
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
[2022-07-01 08:14] VITALS: BP 148/92; PULSE 74; RESP 16; TEMP 36.8; O2SAT 100
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
[2022-07-01] MEDS: CYCLOBENZAPRINE HCL 10 MG TABLET PO (11:02)
[2022-07-01] MEDS: ACETAMINOPHEN 500 MG TABLET 1000 MG PO (11:02)
[2022-07-01 11:07] VITALS: BP 142/88; PULSE 86; RESP 18; TEMP 36.8; O2SAT 99
== END 2022-07-01 11:08 | disposition home or self-care (01) ==
PROVIDERS: Emergency Provider Emergency Medicine; PCP Family Medicine
DX: S09.90XA Unspecified injury of head, initial encounter (principal); S19.9XXA Unspecified injury of neck, initial encounter; M79.602 Pain in left arm; M79.605 Pain in left leg; E11.9 Type 2 diabetes mellitus without complications; E78.5 Hyperlipidemia, unspecified; E55.9 Vitamin D deficiency, unspecified; D50.9 Iron deficiency anemia, unspecified; K21.9 Gastro-esophageal reflux disease without esophagitis; M10.9 Gout, unspecified; M17.12 Unilateral primary osteoarthritis, left knee; M19.072 Primary osteoarthritis, left ankle and foot; Z87.442 Personal history of urinary calculi; V47.5XXA Car driver injured in collision with fixed or stationary object in traffic accident, initial encounter; Z98.84 Bariatric surgery status; F31.9 Bipolar disorder, unspecified
CPT/HCPCS: 70450; 72125; 73080; 73110; 73502; 73590; 99284; A9270

== ENCOUNTER 2022-08-29 16:59 | Emergency (ER) | payer BC, SELFPAY ==
--- NOTE | 2022-08-29 17:15 | PC.NURSE ---
pt states is going to go home and wait to see her doctor. advised to return for heavy bleeding or dizziness.
== END 2022-08-29 17:22 | disposition left against medical advice (07) ==
PROVIDERS: PCP Family Medicine
DX: Z53.21 Procedure and treatment not carried out due to patient leaving prior to being seen by health care provider (principal)
CPT/HCPCS: 99199

== ENCOUNTER 2022-09-19 09:42 | Outpatient (CLI) | payer BC, SELFPAY ==
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
== END 2022-09-19 09:43 ==
LOC: MICIMG 09:44
PROVIDERS: PCP Orthopaedic Surgery; Visit Provider Orthopaedic Surgery
DX: M25.551 Pain in right hip (principal); M79.651 Pain in right thigh
CPT/HCPCS: 73718

== ENCOUNTER 2022-10-06 00:58 | Day surgery (SDC) | payer BC, SELFPAY ==
--- NOTE | 2022-09-26 15:36 | PC.NURSE ---
Report to the Outpatient Waiting Room, entrance under the green pavilion located off [facility], at time 1330 on date 10/06/22. Planned Procedure Time: 1530. Time changes happen often and if your time is changed the preop area will call you the afternoon before. - You and your visitor will be asked to self-screen and do not enter if you have any COVID symptoms. - A mask is optional within the hospital at this time. Patients may have clear liquids (water, carbonated beverages, clear teas, apple juice) until 3 hours prior to surgery with a maximum of 20 ounces. 1230 - No food from midnight until time of surgery - Infants may have breast milk until 4 hours before surgery, formula 6 hours prior to surgery. - Children will be allowed to drink immediately following surgery. If applicable, please bring a bottle or sippy cup to assist with drinking. Juice, water, soda, and popsicles are readily available. For infants on formula, please bring formula the day of surgery. Pacifiers are allowed. Take the following medications with a SIP of water the morning of surgery: Latuda DO NOT STOP ANY OF YOUR OTHER PRESCRIPTION MEDICATIONS PRIOR TO SURGERY ?EXCEPT THE FOLLOWING Medications to discontinue per physician multivitamins & supplements, zyrte Date to take last dose multivitamins & supplements (10/03/22) zyrtec (10/05/22) Please no make-up, nail latvian, hairspray, perfume, deodorant, or body powder the day of surgery. No jewelry (including any body piercings) or valuables the day of surgery, leave them at home. Please take a shower or bath the night before, or the morning of, surgery with an antibacterial soap. Wear comfortable, loose fitting clothing. Children are encouraged to wear pajamas. - Jewelry must be removed prior to entering the operating room. Rings and piercings that are not removed may be cut off. - The hospital will not accept responsibility for valuables. - Please leave all valuables, including medications, at home the day of surgery. If you are going home after surgery, a licensed boom truck driver must drive you home. - NO public transportation without another adult if you receive anesthesia. - We recommend that an adult stay with you for 24 hours following discharge. - We also recommend that you do not drive, make important decision, drink alcoholic beverages, or take any drugs that were not prescribed by your health care provider for at least 24 hours after your discharge time. For Pediatric surgeries, we recommend two adults accompany the child home. Follow any additional instructions given to you from your surgeon. If you or anyone in your household have experienced Covid symptoms in the past week, please notify your surgeon or the nurse liaison at the phone number below for possible testing. Telephone instructions given to Patient- Blanca Dinero and asked if any additional questions and then verbalized understanding. Patient advised to call surgeon office or pre surgery nurse liaison [phone] if any additional questions.
[2022-09-26 15:47] VITALS: BMI 45.2
--- NOTE | 2022-10-06 08:50 | PM.IMHP ---
H&P: HPI History of Present Illness Date/Time: 10/06/22 08:50 Chief Complaint: postmenopausal bleeding Narrative: ?52-year-old female presents for hysteroscopy D&C for postmenopausal bleeding.? Patient states she went through menopause proximally 1/2 years ago.? Patient had had several episodes of vaginal spotting.? Patient had a pelvic ultrasound which identified known uterine fibroids.? Patient states she was wearing these fibroids for some time.? Endometrial lining measured 1 cm.? Patient is status post ablation. [facility] Past Medical History Medical History Abnormal uterine bleeding Anemia Arthritis Bipolar 1 disorder Depression GERD (gastroesophageal reflux disease) Gout Hyperlipidemia, unspecified Iron deficiency anemia Kidney stone Osteoarthritis Type 2 diabetes mellitus without complications Ulcer Vitamin D deficiency Surgical History Surgical History H/O gynecological procedure ablation History of gastric bypass (~10/2017) History of lithotripsy ESWL for right renal calculus. History of tubal ligation (~2004) Hx of section (~2014) Family History Family History Mother Hypertension Family history of diabetes mellitus in first degree relative Mother Family history of type 2 diabetes mellitus Other Diabetes mellitus Social History Social History (Updated 09/12/22 @ 16:39 by Maritza Onofre MA) Social History: caffeine daily Smoking status: Never smoker Second hand tobacco smoke exposure: No Alcohol intake: current Drinks per week: 1 Alcohol use details: occasionally-liquor Substance use: never Substance use type: does not use Lack of Transportation: No Lack of Food: Never True Current Housing: I Have Housing Concerned About Future Housing: Decline to Answer Difficulty Paying Gas/Electric Bills: Decline to Answer Difficulty Paying for Meds: Decline to Answer Currently Unemployed: Decline to Answer Education: Don't Know Difficulty w/ Childcare or Family Care: No Living arrangements: with family Occupation/Education: occupation Gender identity (if verbalized by the patient): Female Spiritual care concerns: No Meds Home Medications and Allergies Home Medications Medication Instructions Recorded Confirmed Type lurasidone 80 mg tablet 80 mg PO DAILY 06/20/19 09/26/22 History cetirizine 10 mg capsule (Zyrtec) 10 mg PO DAILY #90 caps 05/10/22 08/07/23 Rx cholecalciferol (vitamin D3) 25 25 mcg PO DAILY 06/29/21 09/26/22 History mcg (1,000 unit) capsule ferrous sulfate 325 mg (65 mg 325 mg PO DAILY #90 tabs 06/29/21 09/26/22 Rx iron) tablet (FeroSul) Adult Multivitamin with Iron 1 tab-cap PO DAILY 09/26/22 09/26/22 History Fish Oil 1 cap PO DAILY 09/26/22 09/26/22 History Allergies Allergy/AdvReac Type Severity Reaction Status Date / Time No Known Allergies Allergy Mild Verified 09/26/22 15:24 Assessment and Plan Assessment and plan (1) Postmenopausal bleeding: Code(s): N95.0 - Postmenopausal bleeding Status: Acute Assessment and Plan: 52-year-old female who presents for postmenopausal bleeding Patient is postmenopausal and was having episodes of vaginal bleeding Patient had pelvic ultrasound.? Images reviewed ?ultrasound showed endometrial lining of 1 cm Patient is not currently having any bleeding ?discussed tissue sampling to rule out malignancy Discussed observation versus endometrial biopsy, verses D&C, versus hysterectomy Patient is not open to in office endometrial biopsy Patient wishes to proceed with D&C ?risks, benefits, alternatives discussed at length Will plan for hysteroscopy, D&C for postmenopausal bleeding
--- NOTE | 2022-10-06 09:06 | WPDHPUPDATE1 ---
History and Physical Update Update Date/Time: 10/06/22 09:06 History and Physical has been reviewed, including an updated exam of the patient. There are NO changes in the patient's condition. Risks, benefits, and alternatives have been discussed and questions answered. Patient agrees to proceed with procedure.
[2022-10-06] MEDS: LACTATED RINGERS 1,000 ML 30 ML IV CONT ×2 (13:08→16:59)
[2022-10-06] MEDS: ACETAMINOPHEN 500 MG TABLET 1000 MG PO (13:40)
[2022-10-06 14:14] VITALS: BP 146/95; PULSE 66; RESP 16; TEMP 36.3; O2SAT 100
--- NOTE | 2022-10-06 15:33 | WPDANESEPPF ---
Anes - Initial Pre Proc Eval Procedure: Operation Date: 10/06/22 15:30 Proposed Procedures p Hysteroscopy Dilation and Curettage - Marvel Calvillo MD Date/Time: 10/06/22 15:33 Surgeon: Marvel Calvillo MD Pre Op Diagnosis: post menopausal bleeding Patient Data Age: 52 Gender: F Height: 1.68 m Weight: 130.2 kg Last Vital Signs Temp 36.3 C L 10/06/22 14:14 Pulse 66 10/06/22 14:14 Resp 16 10/06/22 14:14 BP 146/95 H 10/06/22 14:14 Pulse Ox 100 10/06/22 14:14 O2 Del Method Room Air 10/06/22 14:14 Allergies Allergy/AdvReac Type Severity Reaction Status Date / Time No Known Allergies Allergy Mild Verified 10/06/22 13:15 Home Medications Medication Instructions Recorded Confirmed Type lurasidone 80 mg tablet 80 mg PO DAILY 06/20/19 09/26/22 History cetirizine 10 mg capsule (Zyrtec) 10 mg PO DAILY #90 caps 06/29/21 09/26/22 Rx cholecalciferol (vitamin D3) 25 25 mcg PO DAILY 06/29/21 09/26/22 History mcg (1,000 unit) capsule ferrous sulfate 325 mg (65 mg 325 mg PO DAILY #90 tabs 06/29/21 09/26/22 Rx iron) tablet (FeroSul) Adult Multivitamin with Iron 1 tab-cap PO DAILY 09/26/22 09/26/22 History Fish Oil 1 cap PO DAILY 09/26/22 09/26/22 History Patient hx anesthesia problems: none Family hx anesthesia problems: none Results Review: All pre-operative results and documents have been reviewed as part of the pre-operative evaluation. [facility] Past Medical History Medical History Abnormal uterine bleeding Anemia Arthritis Bipolar 1 disorder Depression GERD (gastroesophageal reflux disease) Gout Hyperlipidemia, unspecified Iron deficiency anemia Kidney stone Osteoarthritis Type 2 diabetes mellitus without complications Ulcer Vitamin D deficiency Surgical History Surgical History H/O gynecological procedure ablation History of gastric bypass (~10/2017) History of lithotripsy ESWL for right renal calculus. History of tubal ligation (~2004) Hx of section (~2014) Family History Family History Mother Hypertension Family history of diabetes mellitus in first degree relative Mother Family history of type 2 diabetes mellitus Other Diabetes mellitus Social History Social History Social History: caffeine daily Smoking status: Never smoker Second hand tobacco smoke exposure: No Alcohol intake: current Drinks per week: 1 Alcohol use details: occasionally-liquor Substance use: never Substance use type: does not use Lack of Transportation: No Lack of Food: Never True Current Housing: I Have Housing Concerned About Future Housing: Decline to Answer Difficulty Paying Gas/Electric Bills: Decline to Answer Difficulty Paying for Meds: Decline to Answer Currently Unemployed: Decline to Answer Education: Don't Know Difficulty w/ Childcare or Family Care: No Living arrangements: with family Occupation/Education: occupation Gender identity (if verbalized by the patient): Female Spiritual care concerns: No Anes - Eval Final PreProcedure Day of Procedure 10/06/22 15:33 Patient weight: morbidly obese Heart: regular rate and rhythm Lungs: clear to auscultation Airway: Mallampati scale class II Neurological: alert and oriented Last oral intake: >/= 8 hours ASA classification: III Emergent: no Anesthetic plan: proceed Anesthesia type and monitoring: general GIVS and standard monitoring Results Review: All pre-operative results and documents have been reviewed as part of the pre-operative evaluation. Informed Consent: The patient's anesthetic plan and its attendant risks and benefits were discussed with the patient/family/POA. Questions were solicited and answers provided to the satisfacti
--- NOTE | 2022-10-06 16:20 | W.PM.PROC2 ---
Procedure Note - Detailed Date of Procedure 10/06/22 Pre-op Diagnosis post menopausal bleeding Post-op Diagnosis Same Procedure Performed hysteroscopy dilation & curettage Surgeon Marvel Calvillo MD Anesthesia General Indications abnormal uterine bleeding Findings normal appearing intrauterine cavity. Normal tubal ostia bilaterally Description of Procedure Blanca Dinero presents for the above procedure for postmenopausal bleeding. She was counseled as to the indications, risks, benefits, and alternatives to surgery, with the risks including bleeding, infection, damage to surrounding organs, VTE, and complications of anesthesia. Her verbal and written consent was obtained. PROCEDURE: The patient was taken to the OR and general anesthesia induced. She was prepped and draped in Nakul stirrups with support of the back and bilateral lower extremities. I/O catheterization performed of the bladder. The above findings were noted. A single tooth tenaculum was placed on the anterior lip of the cervix. The cervix was dilated with sequential Lo dilators. Hysteroscopy, using a normal saline medium, was performed and showed the above findings. Sharp uterine curettage was then performed and tissue placed on Telfa. The tenaculum was removed and hemostasis was observed. The patient tolerated the procedure well. Sponge, lap, and needle counts were correct. The patient was taken to the recovery room in stable condition. Estimated Blood Loss 5 Drains No Packing No Pathology Yes (endometrial curettings ) Complications No immediate complications Condition Stable Disposition PACU [facility] Billing Surgery - Charge Forward: Surgery Billing
[2022-10-06 16:22] VITALS: BP 155/102; PULSE 72; RESP 15; O2SAT 100
[2022-10-06] MEDS: oxyCODONE HCL (*CRX) 5 MG TAB IR PO (16:46)
[2022-10-06 16:50] VITALS: BP 141/89; PULSE 63
[2022-10-06] MEDS: fentaNYL CITRATE INJ (*CRX) 100 MCG/2 ML VIAL 25 MCG IV PUSH ×2 (17:02→17:05)
[2022-10-06 17:20] VITALS: BP 156/101; PULSE 63
== END 2022-10-06 17:27 | disposition home or self-care (01) ==
PROVIDERS: PCP Family Medicine; Visit Provider Student in an Organized Health Care Education/Training Program
PROC: 0U5B8ZZ Destruction of Endometrium, Via Natural or Artificial Opening Endoscopic (ICD-10-PCS; CPT 58563; principal; 2022-10-06 15:30)
DX: N95.0 Postmenopausal bleeding (principal); D50.9 Iron deficiency anemia, unspecified; E11.9 Type 2 diabetes mellitus without complications; F31.9 Bipolar disorder, unspecified; E55.9 Vitamin D deficiency, unspecified; Z98.84 Bariatric surgery status; E66.01 Morbid (severe) obesity due to excess calories; Z68.42 Body mass index [BMI] 45.0-49.9, adult
CPT/HCPCS: 58558; 88305; A9270; J2250; J3010; J7120

== ENCOUNTER 2022-11-14 16:20 | Outpatient (CLI) | payer BC, SELFPAY ==
[2022-11-14 17:37] LABS: Iron 31 ug/dL (37-170)
[2022-11-14 17:46] LABS: Percent Iron Saturation 8 % (20-50)
[2022-11-14 18:12] LABS: Ferritin 4.53 ng/mL (11.1-264)
== END 2022-11-14 16:21 | disposition home or self-care (01) ==
LOC: ANHLAB 16:22
PROVIDERS: PCP Family Medicine; Visit Provider Internal Medicine Hematology & Oncology
DX: D64.9 Anemia, unspecified (principal)
CPT/HCPCS: 36415; 82728; 83540; 83550

== ENCOUNTER 2022-11-15 14:20 | Outpatient (CLI) | payer BC, SELFPAY ==
[2022-11-15 17:03] LABS: Basophils Percent Auto 0.5 % (0.2-1.2); Eosinophils Absolute Auto 0.1 K/mm3 (0-0.3); Eosinophils Percent Auto 1.3 % (0-4.4); Hemoglobin 7.8 g/dL (12.0-15.0); Immature Granulocyte Absolute 0.03 K/mm3 (0.00-0.031); Immature Granulocyte Percent A 0.3 % (0-0.5); Lymphocytes Absolute Auto 2.25 K/mm3 (0.9-3.2); Mean Corpuscular HGB Conc 28.9 g/dl (32-36); Mean Corpuscular Hemoglobin 24.1 pg (26-34); Mean Corpuscular Volume 83.3 fl (80-100); Mean Platelet Volume 9.3 fl (7.4-10.4); Monocytes Absolute Auto 0.6 K/mm3 (0.1-0.6); Monocytes Percent Auto 7.3 % (2.6-8.5); Neutrophils Absolute Auto 5.6 K/mm3 (1.3-6.7); Neutrophils Percent Auto 64.6 % (45.5-73.1); Platelet Count Result 471 k/mm3 (150-375); Red Blood Count 3.24 M/mm3 (4.2-5.4); Red Cell Distribution Width 15.7 % (11.5-14.5); White Blood Count 8.7 K/mm3 (4.5-10.0)
[2022-11-15 18:01] LABS: Large Platelets Present; Platelet Estimate Increased (Adequate)
[2022-11-15 18:02] LABS: Poikilocytosis 1+ (NORMAL)
[2022-11-15 18:03] LABS: Anisocytosis 1+ (NORMAL); Microcytosis 1+ (NORMAL); Ovalocytes 1+ (NORMAL); Schistocytes None Seen (NORMAL)
== END 2022-11-15 14:21 | disposition home or self-care (01) ==
LOC: ANHWCLAB 14:23
PROVIDERS: PCP Family Medicine; Visit Provider Internal Medicine Hematology & Oncology
DX: D64.9 Anemia, unspecified (principal)
CPT/HCPCS: 36415; 85025

== ENCOUNTER 2023-04-08 07:49 | Outpatient (CLI) | payer BC, SELFPAY ==
[2023-04-08 08:29] LABS: Hematocrit 32.5 % (37.0-47.0); Hemoglobin 9.2 g/dL (12.0-15.0); Mean Corpuscular HGB Conc 28.3 g/dl (32-36); Mean Corpuscular Hemoglobin 25.1 pg (26-34); Mean Corpuscular Volume 88.8 fl (80-100); Platelet Count Result 423 k/mm3 (150-375); Red Blood Count 3.66 M/mm3 (4.2-5.4); White Blood Count 7.8 K/mm3 (4.5-10.0)
[2023-04-08 08:40] LABS: Iron 240 ug/dL (37-170)
[2023-04-08 08:51] LABS: Percent Iron Saturation 63 % (20-50)
[2023-04-08 09:16] LABS: Ferritin 4.47 ng/mL (11.1-264)
[2023-04-08 09:50] LABS: Folic Acid 15.6 ng/mL (2.76->20); Vitamin B12 > 1000.0 pg/mL (239-931)
== END 2023-04-08 07:50 | disposition home or self-care (01) ==
LOC: ANHLAB 07:52
PROVIDERS: PCP Family Medicine; Visit Provider Nurse Practitioner Family
DX: D50.8 Other iron deficiency anemias (principal)
CPT/HCPCS: 36415; 82607; 82728; 82746; 83540; 83550; 85027

== ENCOUNTER 2023-07-15 06:58 | Outpatient (CLI) | payer BC, OTHER, SELFPAY ==
[2023-07-15 07:38] LABS: Basophils Percent Auto 0.4 % (0.2-1.2); Eosinophils Absolute Auto 0.1 K/mm3 (0-0.3); Eosinophils Percent Auto 1.1 % (0-4.4); Hematocrit 32.7 % (37.0-47.0); Hemoglobin 9.2 g/dL (12.0-15.0); Immature Granulocyte Absolute 0.04 K/mm3 (0.00-0.031); Immature Granulocyte Percent A 0.5 % (0-0.5); Lymphocytes Absolute Auto 1.56 K/mm3 (0.9-3.2); Lymphocytes Percent Auto 19.5 % (18.3-44.2); Mean Corpuscular HGB Conc 28.1 g/dl (32-36); Mean Corpuscular Hemoglobin 22.4 pg (26-34); Mean Corpuscular Volume 79.6 fl (80-100); Mean Platelet Volume 8.7 fl (7.4-10.4); Monocytes Absolute Auto 0.4 K/mm3 (0.1-0.6); Monocytes Percent Auto 5.4 % (2.6-8.5); Neutrophils Absolute Auto 5.8 K/mm3 (1.3-6.7); Neutrophils Percent Auto 73.1 % (45.5-73.1); Platelet Count Result 530 k/mm3 (150-375); Red Blood Count 4.11 M/mm3 (4.2-5.4); Red Cell Distribution Width 20.1 % (11.5-14.5)
[2023-07-15 07:59] LABS: Iron 27 ug/dL (37-170)
[2023-07-15 08:08] LABS: Percent Iron Saturation 7 % (20-50)
[2023-07-15 08:29] LABS: Anisocytosis 2+; Ovalocytes 1+; Platelet Estimate Increased (Adequate); Schistocytes None Seen
[2023-07-15 08:35] LABS: Ferritin 4.94 ng/mL (11.1-264)
[2023-07-15 08:57] LABS: Folic Acid 12.7 ng/mL (2.76->20)
== END 2023-07-15 06:59 | disposition home or self-care (01) ==
LOC: ANHLAB 07:03
PROVIDERS: PCP Family Medicine; Visit Provider Nurse Practitioner Family
DX: D50.9 Iron deficiency anemia, unspecified (principal)
CPT/HCPCS: 36415; 82607; 82728; 82746; 83540; 83550; 85025

== ENCOUNTER 2023-08-12 06:58 | Outpatient (CLI) | payer BC, OTHER, SELFPAY ==
--- NOTE | ~2023-08-12 | XR_ITS ---
XR hip RT min 2V DATE: 08/12/2023 08:16 INDICATION: Right hip pain for several years. No known injury. TECHNIQUE: AP and lateral views COMPARISON: None FINDINGS: No fracture, dislocation, avascular necrosis or bone destruction. Right hip joint space jen ears well preserved. Normal alignment at the sacroiliac joint. IMPRESSION: Negative right hip Reviewed, dictated and finalized at location A. IMPRESSION: Negative right hip
--- NOTE | ~2023-08-12 | XR_ITS ---
XR chest 2V DATE: 08/12/2023 08:15 INDICATION: Physical examination TECHNIQUE: PA and lateral chest COMPARISON: None FINDINGS: Normal heart size. No hilar or mediastinal enlargement. No pulmonary infiltrate or consolid ation, pleural effusion or pulmonary vascular congestion or pneumothorax is detected. IMPRESSION: No active cardiopulmonary disease Reviewed, dictated and finalized at location A.
--- NOTE | ~2023-08-12 | XR_ITS ---
EXAMINATION: XR lumbar spine 2-3V DATE: 08/12/2023 08:16 INDICATION: Low back pain. TECHNIQUE: 3 views of lumbar spine were obtained. COMPARISON: None. FINDINGS: There is 6 mm anterolisthesis of L4 on L5. Vertebral body heights are normal. There is mild ly decreased disc height at L3-L4 and L4-L5. There is multilevel facet joint osteoarthritis, severe i n lower lumbar spine. IMPRESSION: 1. Mild lumbar spondylosis. Reviewed, dictated and finalized at location E. IMPRESSION: 1. Mild lumbar spondylosis.
--- NOTE | ~2023-08-12 | XR_ITS ---
XR knee RT 3V DATE: 08/12/2023 08:16 INDICATION: Right knee pain. No known injury. TECHNIQUE: AP, lateral, sunrise views COMPARISON: None FINDINGS: There is mild periarticular spurring at the medial lateral compartments and prominent parti cular spurring of the patellofemoral joint. Medial and lateral compartment joint spaces appear well p reserved. Osteopenia. No fracture or dislocation or joint effusion, periosteal reaction or bone destruction. No radiopaque intra-articular loose body or, calcinosis. IMPRESSION: Tricompartment osteophytosis, most prominent at the patellofemoral compartment, mild at t he medial lateral compartments Reviewed, dictated and finalized at location A. IMPRESSION: Tricompartment osteophytosis, most prominent at the patellofemoral compartment, mild at the medial lateral compartments
[2023-08-12 08:05] LABS: Alanine Aminotransferase 21 U/L (6-35); Albumin Level 4.7 g/dL (3.5-5.1); Alkaline Phosphatase 100 U/L (38-126); Anion Gap 9 mmol/L (4-12); Aspartate Amino Transferase 26 U/L (14-36); Bilirubin,Total 0.6 mg/dL (0.2-1.3); Blood Urea Nitrogen 17 mg/dL (7-17); Calcium 8.9 mg/dL (8.4-10.2); Carbon Dioxide 26 mmol/L (22-30); Chloride 107 mmol/L (98-107); Cholesterol 226 mg/dL (0-200); Estimated Glomerular Filt Rate > 60; Glucose 95 mg/dL (65-110); HDL Direct 80 mg/dL; Potassium 4.3 mmol/L (3.4-5.0); Rheumatoid Factor < 12.0 IU/ML (<12); Sodium 142 mmol/L (137-145); Triglycerides 80 mg/dL (<150); Uric Acid 6.3 mg/dL (2.5-7.5)
[2023-08-12 08:16] LABS: LDL Cholesterol Direct 121 mg/dL
[2023-08-12 08:20] LABS: T4 Thyroxine 7.64 ug/dL (5.53-11.0)
[2023-08-12 08:34] LABS: Thyroid Stimulating Hormone 0.557 uIU/mL (0.465-4.680)
[2023-08-12 08:41] LABS: Hematocrit 33.5 % (37.0-47.0); Hemoglobin 9.5 g/dL (12.0-15.0); Mean Corpuscular HGB Conc 28.4 g/dl (32-36); Mean Corpuscular Hemoglobin 22.8 pg (26-34); Mean Corpuscular Volume 80.3 fl (80-100); Mean Platelet Volume 8.9 fl (7.4-10.4); Platelet Count Result 600 k/mm3 (150-375); Red Blood Count 4.17 M/mm3 (4.2-5.4); Red Cell Distribution Width 21.2 % (11.5-14.5)
[2023-08-12 09:22] LABS: Appearance Urine Clear (Clear); Bilirubin Urine Negative (Negative); Blood Urine Negative (Negative); Color Urine Yellow (Yellow); Glucose Urine UA Negative (Negative); Ketones Urine Negative (Negative); Leukocyte Esterase Ur Negative LEU/UL (Negative); Nitrate Urine Negative (Negative); Protein Urine Negative (Negative); Specific Grav Ur 1.024 (1.001-1.035); pH Urine 5.5 (5.0-9.0)
[2023-08-12 09:32] LABS: Add Urine Microscopic? NO
[2023-08-12 10:38] LABS: Erythrocyte Sedimentation Rate 23 mm/hr (0-20)
[2023-08-14 14:15] LABS: Iron 32 ug/dL (37-170)
[2023-08-14 14:24] LABS: Percent Iron Saturation 8 % (20-50)
[2023-08-14 15:30] LABS: Folic Acid > 20.0 ng/mL (2.76->20)
== END 2023-08-12 06:59 | disposition home or self-care (01) ==
PROVIDERS: PCP Family Medicine; Visit Provider Internal Medicine
DX: D64.9 Anemia, unspecified (principal); I10 Essential (primary) hypertension; E66.01 Morbid (severe) obesity due to excess calories; F31.9 Bipolar disorder, unspecified; Z00.00 Encounter for general adult medical examination without abnormal findings; M47.896 Other spondylosis, lumbar region
CPT/HCPCS: 36415; 71046; 72100; 73502; 73562; 80053; 80061; 81003; 82607; 82728; 82746; 83036; 83540; 83550; 84436; 84443; 84481; 84550; 85027; 85652; 86038; 86039; 86430

== ENCOUNTER 2023-09-02 06:55 | Outpatient (CLI) | payer BC, OTHER, SELFPAY ==
[2023-09-02 07:28] LABS: Alanine Aminotransferase 21 U/L (6-35); Albumin Level 4.3 g/dL (3.5-5.1); Alkaline Phosphatase 76 U/L (38-126); Anion Gap 7 mmol/L (4-12); Aspartate Amino Transferase 30 U/L (14-36); Bilirubin,Total 0.4 mg/dL (0.2-1.3); Blood Urea Nitrogen 16 mg/dL (7-17); Calcium 8.7 mg/dL (8.4-10.2); Carbon Dioxide 29 mmol/L (22-30); Chloride 105 mmol/L (98-107); Cholesterol 148 mg/dL (0-200); Estimated Glomerular Filt Rate > 60; Glucose 101 mg/dL (65-110); HDL Direct 62 mg/dL; Potassium 4.5 mmol/L (3.4-5.0); Sodium 141 mmol/L (137-145); Triglycerides 99 mg/dL (<150)
[2023-09-02 07:39] LABS: LDL Cholesterol Direct 69 mg/dL
== END 2023-09-02 06:56 | disposition home or self-care (01) ==
LOC: ANHLAB 06:57
PROVIDERS: PCP Internal Medicine; Visit Provider Internal Medicine
DX: E78.5 Hyperlipidemia, unspecified (principal); I10 Essential (primary) hypertension; D64.9 Anemia, unspecified; E61.1 Iron deficiency; E66.01 Morbid (severe) obesity due to excess calories
CPT/HCPCS: 36415; 80053; 80061

== ENCOUNTER 2023-09-09 06:37 | Outpatient (CLI) | payer BC, OTHER, SELFPAY ==
[2023-09-09 07:11] LABS: Anion Gap 8 mmol/L (4-12); Blood Urea Nitrogen 17 mg/dL (7-17); Calcium 8.3 mg/dL (8.4-10.2); Carbon Dioxide 28 mmol/L (22-30); Chloride 104 mmol/L (98-107); Estimated Glomerular Filt Rate > 60; Glucose 95 mg/dL (65-110); Potassium 4.2 mmol/L (3.4-5.0); Sodium 140 mmol/L (137-145)
== END 2023-09-09 06:38 | disposition home or self-care (01) ==
LOC: ANHLAB 06:39
PROVIDERS: PCP Internal Medicine; Visit Provider Internal Medicine
DX: E66.01 Morbid (severe) obesity due to excess calories (principal); E78.5 Hyperlipidemia, unspecified; I10 Essential (primary) hypertension
CPT/HCPCS: 36415; 80048

== ENCOUNTER 2024-02-08 16:36 | Emergency (ER) | payer BC, OTHER, SELFPAY ==
--- NOTE | ~2024-02-08 | XR_ITS ---
EXAMINATION: XR knee RT min 4V DATE: 02/08/2024 17:20 INDICATION: Anterior and posterior right knee pain TECHNIQUE: Anteroposterior, 2 oblique and crosstable lateral views of the right knee were obtained COMPARISON: 08/12/2023 FINDINGS: Alignment is normal. No fracture. Chondrocalcinosis and mild to moderate joint space narrowing at th e lateral aspect of the patellofemoral compartment an moderate size marginal osteophytes. Small scotty nal osteophytes at the medial lateral compartments without significant joint space narrowing although this could be underestimated on nonweightbearing imaging. No joint effusion/layering lipohemarthrosi s. Soft tissues are unremarkable. IMPRESSION: 1. Mild to moderate patellofemoral compartment predominant tricompartmental osteoarthritis at the rig ht knee. Reviewed, dictated and finalized at location A. L MODEL [employer]KER IMPRESSION: 1. Mild to moderate patellofemoral compartment predominant tricompartmental ost eoarthritis at the right knee.
[2024-02-08 16:52] VITALS: BP 146/97; PULSE 75; RESP 16; TEMP 36.2; O2SAT 100
--- NOTE | 2024-02-08 17:02 | ED.LOWEXIN ---
HPI - Extremity Injury (Lower) General Chief Complaint: Extremity Injury, Lower Stated Complaint: R KNEE PAIN Time Seen by Provider: 02/08/24 17:00 Source: patient Mode of arrival: ambulatory Limitations: no limitations History of Present Illness HPI Narrative: Blanca is a 53-year-old female patient presenting to the clinic today with complaints of right knee pain. She reports she was walking out work today and went down 1 step and felt a pop in the right knee with instant pain. Pain is worse with walking and bending the knee. Is having pain to the anterior and posterior knee pain. Denies falling Related Data Home Medications ?Medication ?Instructions ?Recorded ?Confirmed ?Last Taken ?Type lurasidone 80 mg tablet 80 mg PO DAILY 06/20/19 02/08/24 09/26/22 History cholecalciferol (vitamin D3) 25 25 mcg PO DAILY 06/29/21 01/29/24 09/26/22 History mcg (1,000 unit) capsule Adult Multivitamin with Iron 1 tab-cap PO DAILY 09/26/22 01/29/24 09/26/22 History Fish Oil 1 cap PO DAILY 09/26/22 01/29/24 09/26/22 History semaglutide (weight loss) 0.25 0.25 mg subcut WEEKLY 09/25/23 01/29/24 Unknown History mg/0.5 mL subcutaneous pen injector (Wegovy) Allergies Allergy/AdvReac Type Severity Reaction Status Date / Time No Known Allergies Allergy Mild Verified 02/08/24 16:51 Review of Systems Review of Systems: Pertinent positives per HPI. Patient denies any fever, chills, rash, headache, visual changes, dizziness, cough, runny nose, sore throat, shortness of breath, chest pain, palpitations, nausea, vomiting, diarrhea, constipation, abdominal pain, or any urinary issues. [facility] Past Medical History Medical History Kidney stone Depression Gout Osteoarthritis Vitamin D deficiency Type 2 diabetes mellitus without complications Hyperlipidemia, unspecified Anemia GERD (gastroesophageal reflux disease) Iron deficiency anemia Bipolar 1 disorder Arthritis Abnormal uterine bleeding Ulcer Surgical History Surgical History H/O gynecological procedure ablation History of lithotripsy ESWL for right renal calculus. History of gastric bypass (~10/2017) Hx of section (~2014) History of tubal ligation (~2004) Family History Family History Mother Hypertension Family history of diabetes mellitus in first degree relative Mother Family history of type 2 diabetes mellitus Other Diabetes mellitus Social History Social History Social History: caffeine daily Smoking status: Never smoker Second hand tobacco smoke exposure: No Alcohol intake: current Drinks per week: 1 Alcohol use details: occasionally-liquor Substance use: never Substance use type: does not use Lack of Transportation: No Lack of Food: Never True Current Housing: I Have Housing Concerned About Future Housing: Decline to Answer Difficulty Paying Gas/Electric Bills: Decline to Answer Difficulty Paying for Meds: Decline to Answer Currently Unemployed: Decline to Answer Education: Don't Know Difficulty w/ Childcare or Family Care: No Living arrangements: with family Occupation/Education: occupation Gender identity (if verbalized by the patient): Female Spiritual care concerns: No Comments At the time of my signature, I reviewed and agree with the nursing past medical, surgical, social, and family history. There is no relevant family history pertinent to the patient complaint. Exam Narrative: General: Well-developed, well nourished, in no apparent distress Head: Normocephalic, atraumatic. Cardio: Regular rate and rhythm, s1 and s2 normal, no murmur appreciated. Resp: Clear to auscultation bilaterally, no rhonchi, rales, wheezing or rubs. Musculoskeletal: No deformity, tender to palpation to the anterior and posterior knee joint, pain with flexion of the knee at approximately 60?, crepitus palpable with flexion and extension, grossly normal range of motion, muscle strength strong and equal, peripheral pulse strong, no edema, no cyanosis, normal gait and station Course Course Emergency Course: Portions of this record may have been created with voice recognition software. Level of Care: Express Care Visit Vital Signs Vital signs: Vital Signs Temperature 36.2 C L 02/08/24 16:52 Pulse Rate 75 02/08/24 16:52 Respiratory Rate 16 02/08/24 16:52 Blood Pressure 146/97 H 02/08/24 16:52 Pulse Oximetry 100 12/19/24 16:52 Temperature 36.2 C L 02/08/24 16:52 Pulse Rate 75 02/08/24 16:52 Respiratory Rate 16 02/08/24 16:52 Blood Pressure 146/97 H 02/08/24 16:52 Pulse Oximetry 100 02/08/24 16:52 Vital signs reviewed MDM - Extremity Injury (Lower) MDM Narrative Medical decision making narrative: At the time of visit patient is resting comfortably on the exam table. Patient appears to be nontoxic. Diagnostics: X-ray of the right knee was performed Plan: Supportive measures were discussed with the patient and they voiced understanding discharge instructions and agrees to treatment plan. Return precautions reviewed Differential Diagnosis Differential diagnosis: Likely acute internal derangement of knee and other (Knee sprain, tibia fracture, fibula fracture, femur fracture) Imaging Data Radiologist's impression: ITS Impressions Knee X-Ray 02/08/24 17:26 IMPRESSION: 1. Mild to moderate patellofemoral compartment predominant tricompartmental osteoarthritis at the right knee. Discharge Plan Discharge Clinical Impression: Acute internal derangement of right knee, Knee osteoarthritis Patient Disposition: Home, Self-Care Condition: Stable Instructions: Antibiotic Form, Osteoarthritis (ED), Knee Pain (ED), Hinged Knee Brace (ED) Additional Instructions: X-ray of the right knee shows mild to moderate osteoarthritis-no fracture or malalignment Take Medrol Dosepak as prescribed Rest, ice, elevate, and wear albaro wrap as directed Wear hinged knee brace when up ambulating May take Tylenol as needed for pain May apply Aspercreme, blue emu, lidocaine, or Voltaren gel to your knee Gradually bear weight Follow up with your PCP if symptoms persist more than 1 week. Patient Language: Welsh Prescriptions: New methylprednisolone [Medrol (Jason)] 4 mg tablets,dose pack See Rx Instructions PO .COMPLEX Qty: 21 0RF Rx Instructions: orally per package directions No Action Wegovy 0.25 mg/0.5 mL Pen Injector 0.25 mg SUBCUT WEEKLY Rx Instructions: administer weeks 1 through 4 of therapy cholecalciferol (vitamin D3) 25 mcg (1,000 unit) capsule 25 mcg PO DAILY ferrous sulfate [FeroSul] 325 mg (65 mg iron) tablet 325 mg PO DAILY Qty: 90 1RF Zyrtec 10 mg capsule 10 mg PO DAILY Qty: 90 2RF lurasidone 80 mg tablet 80 mg PO DAILY Rx Instructions: must administer with food (at least 350 calories) methylprednisolone [Medrol (Jason)] 4 mg tablets,dose pack See Rx Instructions PO PER PKG DIR Qty: 21 0RF Rx Instructions: PO PER PKG DIR Adult Multivitamin with Iron 1 tab-cap PO DAILY Patient Comments: . Fish Oil 1 cap PO DAILY fluconazole 150 mg tablet 150 mg PO Q72H Qty: 2 0RF tramadol 50 mg tablet 50 mg PO Q12H PRN (Reason: pain) Qty: 30 0RF Follow-up/Referrals: Kassi Freedman MD [Primary Care Provider] - Stand Alone Forms: Work/School Release IP Time of Disposition: 17:38 Quality NIHSS Nursing Documentation ED NIHSS nursing documentation: reviewed/agree
== END 2024-02-08 17:46 | disposition home or self-care (01) ==
PROVIDERS: Emergency Provider Nurse Practitioner Family; PCP Family Medicine
DX: M23.91 Unspecified internal derangement of right knee (principal); M17.11 Unilateral primary osteoarthritis, right knee; E78.5 Hyperlipidemia, unspecified; E11.9 Type 2 diabetes mellitus without complications
CPT/HCPCS: 73564; 99213; G0463

== ENCOUNTER 2024-03-02 07:31 | Outpatient (CLI) | payer BC, OTHER, SELFPAY ==
[2024-03-02 08:01] LABS: Basophils Percent Auto 0.4 % (0.2-1.2); Eosinophils Absolute Auto 0.1 K/mm3 (0-0.3); Eosinophils Percent Auto 0.7 % (0-4.4); Hematocrit 33.2 % (37.0-47.0); Hemoglobin 10.3 g/dL (12.0-15.0); Immature Granulocyte Absolute 0.03 K/mm3 (0.00-0.031); Immature Granulocyte Percent A 0.4 % (0-0.5); Lymphocytes Absolute Auto 1.43 K/mm3 (0.9-3.2); Lymphocytes Percent Auto 18.9 % (18.3-44.2); Mean Corpuscular Hemoglobin 27.8 pg (26-34); Mean Corpuscular Volume 89.7 fl (80-100); Mean Platelet Volume 9.3 fl (7.4-10.4); Monocytes Absolute Auto 0.4 K/mm3 (0.1-0.6); Monocytes Percent Auto 5.4 % (2.6-8.5); Neutrophils Absolute Auto 5.6 K/mm3 (1.3-6.7); Neutrophils Percent Auto 74.2 % (45.5-73.1); Platelet Count Result 330 k/mm3 (150-375); Red Cell Distribution Width 20.6 % (11.5-14.5); White Blood Count 7.6 K/mm3 (4.5-10.0)
[2024-03-02 08:11] LABS: Alanine Aminotransferase 15 U/L (6-35); Albumin Level 3.8 g/dL (3.5-5.1); Alkaline Phosphatase 64 U/L (38-126); Anion Gap 7 mmol/L (4-12); Aspartate Amino Transferase 20 U/L (14-36); Bilirubin,Total 0.3 mg/dL (0.2-1.3); Blood Urea Nitrogen 17 mg/dL (7-17); Calcium 8.8 mg/dL (8.4-10.2); Carbon Dioxide 28 mmol/L (22-30); Chloride 103 mmol/L (98-107); Estimated Glomerular Filt Rate > 60; Glucose 113 mg/dL (65-110); Potassium 4.2 mmol/L (3.4-5.0); Sodium 138 mmol/L (137-145)
[2024-03-02 08:16] LABS: Iron 138 ug/dL (37-170)
[2024-03-02 08:25] LABS: Percent Iron Saturation 46 % (20-50)
[2024-03-02 09:16] LABS: Folic Acid 7.6 ng/mL (2.76->20)
== END 2024-03-02 07:32 | disposition home or self-care (01) ==
LOC: ANHLAB 07:34
PROVIDERS: PCP Family Medicine; Referring Provider Internal Medicine; Visit Provider Internal Medicine Hematology & Oncology
DX: E78.5 Hyperlipidemia, unspecified (principal); E66.01 Morbid (severe) obesity due to excess calories; D50.9 Iron deficiency anemia, unspecified; F31.9 Bipolar disorder, unspecified
CPT/HCPCS: 36415; 80053; 82607; 82746; 83540; 83550; 85025

== ENCOUNTER 2024-04-19 09:14 | Outpatient (CLI) | payer BC, OTHER, SELFPAY ==
[2024-04-19 09:49] LABS: Hematocrit 36.7 % (37.0-47.0); Hemoglobin 11.5 g/dL (12.0-15.0); Mean Corpuscular HGB Conc 31.3 g/dl (32-36); Mean Corpuscular Hemoglobin 28.5 pg (26-34); Mean Corpuscular Volume 90.8 fl (80-100); Mean Platelet Volume 8.7 fl (7.4-10.4); Platelet Count Result 410 k/mm3 (150-375); Red Blood Count 4.04 M/mm3 (4.2-5.4); Red Cell Distribution Width 17.4 % (11.5-14.5); White Blood Count 7.4 K/mm3 (4.5-10.0)
[2024-04-19 10:01] LABS: Alanine Aminotransferase 17 U/L (6-35); Alkaline Phosphatase 79 U/L (38-126); Anion Gap 9 mmol/L (4-12); Aspartate Amino Transferase 20 U/L (14-36); Bilirubin,Total 0.3 mg/dL (0.2-1.3); Blood Urea Nitrogen 16 mg/dL (7-17); Carbon Dioxide 28 mmol/L (22-30); Chloride 104 mmol/L (98-107); Estimated Glomerular Filt Rate > 60; Glucose 88 mg/dL (65-110); Potassium 4.2 mmol/L (3.4-5.0); Sodium 141 mmol/L (137-145)
== END 2024-04-19 09:15 | disposition home or self-care (01) ==
LOC: ANHLAB 09:16
PROVIDERS: PCP Family Medicine; Visit Provider Internal Medicine
DX: D50.9 Iron deficiency anemia, unspecified (principal); I10 Essential (primary) hypertension; E66.01 Morbid (severe) obesity due to excess calories
CPT/HCPCS: 36415; 80053; 85027

== ENCOUNTER 2024-05-17 08:00 | Outpatient (CLI) | payer BC, OTHER, SELFPAY ==
--- OUTSIDE RECORDS SUMMARY | 2024-05-17 08:06 | XMS_ITS ---
Author Organization [facility] Address [address] [facility] [address] [place] [address] Care Team Providers Care Insurance Legal Assistant Name Role Phone Clint Miller Primary Care Provider Medications Medication SIG (Take, Route, Fr equency, Duration) Notes Start Date End Date Status Wegovy 1 MG/0.5ML ADMINISTER 1 MG UNDE R THE SKIN 1 TIME A WEEK for 28 Active Encounters Encounter Location Date Provider Diagnosis [facility] [address] [facility] [address] [place] [address] 04/23/2024 Clint Miller Morbid obesity E66.01 Assessments Encounter Date Diagnosis (ICD Code) Assessment Notes Treatment Notes Treatment Clinical Notes Section Notes 04/23/2024 Morbid obesity (ICD-10 - E66.01) Plan Of Treatment Medication Medication Name Sig Start Date Stop Date Notes Wegovy 1 MG/0.5ML ADMINISTER 1 MG UNDE R THE SKIN 1 TIME A WEEK for 28 Next Appt Details Provider Name:Clint andersen, 05/27/2024 03:30:00 PM, [address] [facility] [address], [place], [address], Progress Notes * ALONSO KUNZDOB:1970 (54 yo F)Acc No.[id number]:04/23/2024 Patient: ALONSO HARE :1970 A ge:54 Y S ex:Female Address:[address] [place] [address], [address] * Refills Refill Wegovy Solution Auto-injector, 1 MG/0.5ML, 2 Milliliter, ADMINISTER 1 MG UNDER THE SKIN 1 TIME A WEEK, 28, Refills=0 * * Date:
--- OUTSIDE RECORDS SUMMARY | 2024-05-17 08:06 | XMS_ITS ---
Author Organization [facility] Address [address] [address] Care Team Providers Care Real Estate Teacher Name Role Phone Clint Miller Primary Care Provider [phone] Medications Medication SIG (Take, Route, Fr equency, Duration) Notes Start Date End Date Status traMADol HCl 50 MG 1 tablet Orally every 6 hours for 14 days As needed 04/23/2024 Active Encounters Encounter Location Date Provider Diagnosis [facility] [address] [facility] [address] [place] [address] 04/23/2024 Clint Miller Plan Of Treatment Medication Medication Name Sig Start Date Stop Date Notes traMADol HCl 50 MG 1 tablet Orally ever y 6 hours for 14 days 04/23/2024 Next Appt Details Provider Name:Clint andersen, 05/27/2024 03:30:00 PM, [address] [facility] [address], [place], [address], Progress Notes * ALONSO KUNZDOB:1970 (54 yo F)Acc No.[id number]:04/23/2024 Patient: ERICKSON HAREHA :1970 A ge:54 Y S ex:Female Address:[address] [place] [address], [address] * Refills Refill traMADol HCl Tablet, 50 MG, Orally, 56 Tablet, 1 tablet, every 6 hours, 14 days, Refills=0 * true * Date: Generated for Carson lópez/Penelope/eTransmitting on: 0 05/17/2024 09:06 AM EDT
--- OUTSIDE RECORDS SUMMARY | 2024-05-17 08:06 | XMS_ITS | Continuity of Care Document ---
Author Name [facility] Organization [facility] Care Team Providers Care Mining Engineering Technologist Name Role Phone [facility] Unavailable Unavailable Problems Combined list of problems from [facility] and [facility] facilities. It does not include entries that were removed or entered in error. Problem Status Onset Date Problem Type Date of Resolution Comments Source Diagnosis: ICD-10-CM Z23 Encounter for immunization Active Diagnosis [facility] Diagnosis: ICD-10-CM Z13.89 Encounter for screening for other disorder Active Diagnosis [facility] Diagnosis: ICD-10-CM S83.011S Lateral subluxation of right patella, sequela Active Diagnosis [facility] Diagnosis: ICD-10-CM M23.8X1 Other internal derangements of right knee Active Diagnosis [facility] Diagnosis: ICD-10-CM Z51.89 Encounter for other specified aftercare Active Diagnosis [facility] Diagnosis: ICD-10-CM M17.9 Osteoarthritis of knee, unspecified Active Diagnosis [facility] Medications Combined list of outpatient medications from [facility] and [facility] facilities.Medications provided include 1) outpatient medications from the last 15 months, and 2) patient-reported medications. Medication Details Route Status Patient Instructions Prescription Expires Prescription Number Last Dispense Date Ordering Provider Order Date Order Qty Source DICLOFENAC NA 1% GEL,TOP APPLY 4 GM TO AFFECTED AREA(S) FOUR TIMES A DAY NEEDED FOR PAIN DO NOT EXCEED MORE THAN 16 GRAMS DAILY TO ANY LOWER EXTREMIT Y JOINT. NOT MORE THAN 8 GRAMS DAILY TO ANY UPPER EXTREMIT Y JOINT. MAX 32GM/DAY OVER ALL JOINTS. (MEASURE DOSE WITH RULER ATTACHED INSIDE BOX) TOPICA L 05/19/2023 [id number] NICK PACKER 2023 100 [facility] MELOXICAM 7.5MG TAB TAKE ONE TABLET BY MOUTH ONCE A DAY FOR PAIN ORAL 05/19/2023 [id number] NICK PACKER 2023 14 [facility] Immunizations Combined list of available immunizations from the Department of Defense and Veterans Affairs facilities. Immunization Series Date Given Administered By Site Reaction Lot Number CVX Code Drug Director Behavioral Health Status Comments Source COVID-19 (PFIZER), MRNA, LNP-S, PF, ROSANGELA-SUCROSE, 30 MCG/0.3 ML (AGES 12+ YEARS) 2023 CARMITA CAPUTO LEFT DELTO ID [id number] 309 complet ed [facility] INFLUENZA, SPLIT VIRUS, TRIVALENT, PF 2023 CARMITA CAPUTO RIGHT DELTO ID [id number] [address] [facility] INFLUENZA, INJECTABLE, QUADRIVALENT, PRESERVATIVE FREE 2022 LUCRETIA CABRERA LEFT DELTO ID [id number] A 150 complet ed [facility] INFLUENZA, INJECTABLE, QUADRIVALENT, PRESERVATIVE FREE 2021 150 complet ed [facility] INFLUENZA, INJECTABLE, QUADRIVALENT, PRESERVATIVE FREE 2020 150 complet ed [facility] INFLUENZA, INJECTABLE, QUADRIVALENT, PRESERVATIVE FREE 2019 150 complet ed [facility] INFLUENZA, INJECTABLE, QUADRIVALENT, PRESERVATIVE FREE 2018 150 complet ed [facility] INFLUENZA, INJECTABLE, QUADRIVALENT, PRESERVATIVE FREE 2017 150 complet ed [facility] HEP B, ADULT 2015 43 complet ed [facility] MMR 2015 03 complet ed [facility] HEP B, ADULT 2014 43 complet ed [facility] MMR 2014 03 complet ed [facility] HEP B, ADULT 2014 43 complet ed [facility] Encounters Combined list of: 1) Encounters from Department of [facility] Affairs facilities going backup to the last 18 months, not all VA inpatient encounters are included; 2) Encounters from the Department of Defense facilities going backup to 280 months. Location Location Details Encounter Type Encounter Number Reason For Visit Attending Provider ADM Date DC Date Status Disposition Source [facility] [place] [id number] Diagnos is: ICD-10- CM Z23 Encount er for immuniz atAMNA Samano 12/19 [facility] OFFICE O/P EST MOD 30 MIN [id number] Diagnos is: ICD-10- CM M17.9 Osteoar thritis of knee, unspeci fied NICK PACKER 04/19 [facility] BELT STRAP SLEEV GRMNT COVER [id number] Diagnos is: ICD-10- CM Z51.89 Encount er for other specifi ed afterca re DEANA APARICIORobson Zepeda 04/19 [facility] OFFICE O/P EST MOD 30 MIN [id number] Diagnos is: ICD-10- CM M23.8X1 Other interna l derange ments of right knee NICK PACKER 04/25 [facility] Outpatient Encounter [id number] 05/02 [facility] PATIENT EDUCATION MATERIALS [id number] Diagnos is: ICD-10- CM S83.011 S Lateral subluxa tion of right patella , sequela RYNE CAPUTO 05/04 [facility] En[facility] [id number] Diagnos is: ICD-10- CM Z13.89 Encount er for screeni ng for other disorde AKBAR Hunter 06/13 [facility] MARCELA Kan [facility] [place] [id number] Diagnos is: ICD-10- CM Z23 Encount er for immuniz RYNE Myers 01/04 [facility] VALERIE Loreta
--- OUTSIDE RECORDS SUMMARY | 2024-05-17 08:06 | XMS_ITS ---
Author Organization [facility] Address [address] [address] Care Team Providers Care Grain Elevator Agent Name Role Phone Aamir Millerbbir Primary Care Provider [phone] Allergies No Known Allergies REASON FOR VISIT F/U HTN Medications Medication SIG (Take, Route, Frequency, Duration) Notes Start Date End Date Status Fish Oil 1000 MG 1 capsule Orally Onc e a day Not-Taking Paxlovid (300/100) 20 x 150 MG & 10 x 100MG 3 tablets Orally Twice a day for 5 days 10/13/2023 Not-Taking Multivitamin Adults 50+ - 1 tablet Orally Every other day Not-Taking Wegovy 1 MG/0.5ML 0.5 mL Subcutaneous Once a week for 30 days 09/04/2023 Not-Taking Amoxicillin 500 MG 1 capsule Orally eduarda ry 8 hrs for 7 days 10/12/2023 Not-Taking Ferrous Sulfate 220 (44 Fe) MG/5ML 5 mL Orally Twice a day Acti ve Atorvastatin Calcium 10 MG TAKE 1 TABLET BY MOUTH DAILY AT BEDTIME for 90 Active traMADol HCl 50 MG 1 tablet Orally every 6 hours for 14 days As needed 01/30/2024 Active Latuda 80 MG 1 tablet in the even ing with food Orally Once a day Active Losartan Potassium 25 MG TAKE 1 TABLET B Y MOUTH DAILY for 90 Active Wegovy 1 MG/0.5ML 0.5 mL Subcutaneous Once a week Active Vitamin B12 1000 MCG 1 tablet Orally Onc e a day Active Potassium 99 MG 1 tablet Orally Once a day Active Social History Tobacco Use: Social History Observation Description Date Details (start date - stop date) Never Smoker NA - NA Tobacco Use/Smoking Question Answer Notes Are you a nonsmoker Alcohol Screen (Audit-C) Question Answer Notes Did you have a drink contain ing alcohol in the past year? Yes How many drinks did you have on a typical day when you were drinking in the past year? 3 or 4 drinks (1 point) How often did you have 6 or more drinks on one occasion in the past year? Less than monthly (1 point) Points 2 Interpretation Negative Vital Signs Temperature 97.8 degrees Fahrenheit 04/23/19 25 Heart Rate 78 /min 04/22/2024 Blood pressure systolic 132 mm Hg 04/23/19 25 Blood pressure diastolic 82 mm Hg 025 Weight 275 lbs 04/22/2024 BMI 44.38 kg/m2 04/22/2024 Height 66 in 04/22/2024 Respiratory Rate 16 /min 04/22/2024 Oximetry 100 % 04/22/2024 ple Encounters Encounter Location Date Provider Diagnosis [facility] [address] [place] [address] 04/22/2024 Clint Miller Primary hypertension I10 ; Other hyperlipidemia E78.49 ; Morbid obesity E66.01 ; Bipolar affective disorder, remission status unspecified F31.9 and Lumbar back pain M54.50 Assessments Encounter Date Diagnosis (ICD Code) Assessment Notes Treatment Notes Treatment Clinical Notes Section Notes 04/22/2024 Primary hypertension (ICD-10 - I10) High Blood Pressure: Care Instructions material was published 04/22/2024 Other hyperlipidemia (ICD-10 - E78.49) 04/22/2024 Morbid obesity (ICD-10 - E66.01) 04/22/2024 Bipolar affective disorder, remission status unspecified (ICD-10 - F31.9) 04/22/2024 Lumbar back pain (ICD-10 - M54.50) Plan Of Treatment Treatment Notes Assessment Notes Primary hypertension High Blood Pressure : Care Instructions material was published Next Appt Details Provider Name:Clint andersen, 05/27/2024 03:30:00 PM, [address], [address], [place], [address], Progress Notes * LEIDY KUNZ:1970 (54 yo F)Acc No.[id number]:04/22/2024 Progress Notes Patient: ALONSO HAER Provider: Robson Miller M.D. :1970 A ge:54 Y S ex:Female Date:04/22/2024 [place] [id number] Subjective: * Chief Complaints: * 1 . F/U HTN. * Medical History: B ipolar, Iron defiency. * Surgical History: G astric bypass 2018, C/Section 2004. * Hospitalization/Major Diagno stic Procedure: V aginal delivery 1990, see above . * Family History: F ather: alive. M other: alive, diagnosed with Diabetes mellitus without mention of complication, type II or unspecified type, not stated as uncontrolled. 1 brother(s) , 1 sister(s) - healthy. 1 son(s) , 1 daughter(s) - healthy. . Daughter - Sleep Apnea Family Hx of DM Type 2. * Social History: T obacco Use: T obacco Use/Smoking A re you a n onsmoker. D rugs/Alcohol: D rugs H ave you used drugs other than those for medical reasons in the past 12 months??No. A lcohol Screen (Audit-C) D id you have a drink containing alcohol in the past year? Y es, H ow many drinks did you have on a typical day when you were drinking in the past year? 3 or 4 drinks (1 point), H ow often did you have 6 or more drinks on one occasion in the past year? L ess than monthly (1 point), P oints 2 , I nterpretation N egative. C affeine I ntake: 1 -2 cups per day. D o you smoke marijuana?: Denies. Do you drink alcohol?: Socially. * Medications: T aking Potassium 99 MG Tablet 1 tablet Orally Once a day , Taking Wegovy 1 MG/0.5ML Solution Auto-injector 0.5 mL Subcutaneous Once a week , Taking Vitamin B12 1000 MCG Tablet Extended Release 1 tablet Orally Once a day , Taking Ferrous Sulfate 220 (44 Fe) MG/5ML Elixir 5 mL Orally Twice a day , Taking Latuda 80 MG Tablet 1 tablet in the evening with food Orally Once a day , Taking Losartan Potassium 25 MG Tablet TAKE 1 TABLET BY MOUTH DAILY , Taking Atorvastatin Calcium 10 MG Tablet TAKE 1 TABLET BY MOUTH DAILY AT BEDTIME , Taking traMADol HCl 50 MG Tablet 1 tablet Orally every 6 hours As needed, Not-Taking/PRN Wegovy 1 MG/0.5ML Solution Auto-injector 0.5 mL Subcutaneous Once a week , Not-Taking/PRN Amoxicillin 500 MG Capsule 1 capsule Orally every 8 hrs , Not-Taking/PRN Paxlovid (300/100) 20 x 150 MG & 10 x 100MG Tablet Therapy Pack 3 tablets Orally Twice a day , Not-Taking/PRN Multivitamin Adults 50+ - Tablet 1 tablet Orally Every other day , Not-Taking/PRN Fish Oil 1000 MG Capsule 1 capsule Orally Once a day , Medication List reviewed and reconciled with the patient * Allergies: N .K.D.A. Objective: * Vitals: T emp:97.8F, HR:78/min, BP:132/82mm Hg, Wt:275lbs, BMI:44.38Index, Ht: 66 in, RR:16/min, Oxygen sat %:100%, Peak Flow: RA, Ht-cm: 167.64 cm, Wt-k.74 kg. ple. Assessment: * Assessment: 1. P rimary hypertension - I10 (Primary) 2 . O ther hyperlipidemia - E78.49? 3. M orbid obesity - E66.01 4 . B ipolar affective disorder, remission status unspecified - F31.9 5 . L umbar back pain - M54.50 ? Plan: * Treatment: * Preventive Medicine: Counseling: C are goal follow-up plan: A carlos alberto Normal BMI Follow-up G iving encouragement to exercise, Lifestyle education regarding diet. * * Electronic signature of Mary Miller MD on 05/17/2024 at 09:06 AM EDT Sign off status: Pending * Provider: Robson Miller M.D. Date: 04/22/2024 Generated for Carson lópez/Penelope/Raquel on: 05/17/2024 09:06 AM EDT
--- OUTSIDE RECORDS SUMMARY | 2024-05-17 08:07 | XMS_ITS | Clinical Summary ---
Author Organization [facility] Address [address] [place] [address] Care Team Providers Care Stripe Marker Name Role Phone Lincoln Freedman MD Primary Care Provider Allergies No known active allergies Medications calcium carbonate/vitam in D3 (CALCIUM 500 + D, D3, ORAL) Take by mouth. Activ e Multivitamin Capsule Take by mouth. Activ e traMADol (ULTRAM) 50 mg tablet TK 1 T PO Q 12 H PRF PAIN 9 Active cholecalciferol , Vitamin D3, 2,000 unit Tablet TK 1 T PO QD 1 9 Active cetirizine (ZyrTEC) 10 mg tablet TK 1 T PO QD 3 9 Active naproxen (NAPROSYN) 250 mg tablet TAKE 1 TABLET BY MOUTH TWICE DAILY NEEDED FOR PAIN 1 Active lurasidone (Latuda) 80 mg Tablet tablet Latuda 80 mg tablet Active Wegovy 0.5 mg/0.5 mL Pen Injector Inject 0.5 mg by subcutaneous injection every 7 days. 4 Active cyanocobalamin 1,000 mcg Tablet Take 1.5 Tablets (1,500 mcg) by mouth daily. 90 Tablet 2 5 Active ferrous sulfate (IRON SULFATE) 220 mg (44 mg iron)/5 mL Elixir elixir TAKE 5 ML BY MOUTH BID. 300 mL 3 5 Active Active Problems Problem Noted Date Diagnosed Date Iron deficiency anemia 10/15/2018 Encounters Date Type Department Care Team Description 05/08/2024 External Device Data [facility] Provider, Abstract 04/30/2024 External Device Data [facility] Provider, Abstract 04/30/2024 External Device Data [facility] Provider, Abstract 04/27/2024 External Device Data [facility] Provider, Abstract 04/26/2024 External Device Data [facility] Provider, Abstract 04/24/2024 External Device Data [facility] Provider, Abstract 04/09/2024 External Device Data [facility] Provider, Abstract 03/13/2024 External Device Data [facility] Provider, Abstract 03/13/2024 External Device Data [facility] Provider, Abstract 03/04/2024 9:15 AM GOLD MARKER Office Visit [facility] [address] [place] [address] Arian Leonard MD Chronic anemia (Primary Dx) 03/04/2024 Orders Only [facility] [address] [place] [address] Arian Leonard MD 02/29/2024 Orders Only [facility] [address] [place] [address] Arian Leonard MD Iron deficiency anemia, unspecified iron deficiency anemia type (Primary Dx) 02/27/2024 External Device Data [facility] Provider, Abstract from Last 3 Months Family History Medical History Relation Name Comments Diabetes Mother Relation Name Status Comments Brother Alive Father Alive Mother Alive Sister Alive Social History Tobacco Use Types Packs/Day Years Used Date Smoking Tobacco: Never Smokeless Tobacco: Never Alcohol Use Standard Drinks/Week Comments Yes 0 (1 standard drink = 0.6 oz pur e alcohol) Comments No Sex and Gender Information Value Date Recorded Sex Assigned at Not on file Legal Sex Female 8:45 AM CDT Gender Identity Not on file Sexual Orientation Not on file Last Filed Vital Signs Vital Sign Reading Time Taken Comments Blood Pressure 122/85 03/04/2024 8:59 AM GOLD MARKER Pulse 82 03/04/2024 8:59 AM GOLD MARKER Temperature 36.3 C (97.4 F) 03/04/2024 8:59 AM GOLD MARKER Respiratory Rate 16 03/04/2024 8:59 AM GOLD MARKER Oxygen Saturation 96% 03/04/2024 8:59 AM GOLD MARKER Inhaled Oxygen Concentration - - Weight 126.6 kg (279 lb 3.2 oz) 03/04/2024 8:59 AM GOLD MARKER Height 167.6 cm (5' 6 ) 05/15/2023 1:18 PM CDT Body Mass Index 45.06 05/15/2023 1:18 PM CDT Plan of Treatment Upcoming Encounters Date Type Department Care Team (Late st Contact Info) Description 07/01/2024 3:30 PM CDT Office Visit [facility] [address] [facility] [address] [place] [address] Arian Leonard MD [address] [facility] [address] [place] [address] Health Maintenance Due Date Last Done Comments Pre-Diabetes and Diabetes Screening 1970 DTAP/TDAP/TD VACCINES (1 - Tdap) 1989 HEPATITIS B VACCINES (1 of 3 - 19+ 3-dose series) 1989 05/05/2015, 02/09/2015, 11/03/2014 PAP SMEAR 1991 CERVICAL CANCER SCREENING 2000 HPV/Cotest (30-65) 2000 PAP SMEAR 2000 BREAST CANCER SCREENING 2010 COLORECTAL SCREENING 2015 Colorectal Cancer Screening 2015 FIT-DNA Q 3 years 2015 FIT/FOBT Q 1 year 2015 Flex Sig/CT Colonography Q 5 years 2015 ZOSTER VACCINE (1 of 2) 2020 Preventative Visit- Commercial 02/21/2024 COVID-19 Vaccine Completed 01/05/2024 INFLUENZA VACCINE Completed 01/05/2024, , 12/22/2021, Additional history exists Procedures Procedure Name Priority Date/Time Associated Diagnosis Comments COMPREHENSIVE METABOLIC PANEL Routine 03/02/2024 1:37 PM GOLD MARKER from Last 3 Months Results * COMPREHENSIVE METABOLIC PANEL (03/02/2024 1:37 PM GOLD MARKER) Blood Arian Leonard MD CHEMISTRY ORDERABLES Final Resu lt from Last 3 Months Insurance [facility] Care Teams Stripe Marker Relationship Specialty Start Date End Date Lincoln Freedman MD [address] [place] [address] PCP - General Family Practice 10/12/18
--- OUTSIDE RECORDS SUMMARY | 2024-05-17 08:07 | XMS_ITS | Patient Health Record ---
Author Organization [facility] Address [address] [address] Care Team Providers Care General Lot Attendant Name Role Phone Aamir Millerbbir Primary Care Provider [phone] Allergies No Known Allergies Reason For Referral No Information Medications Medication SIG (Take, Route, Frequency, Duration) Notes Start Date End Date Status Ferrous Sulfate 220 (44 Fe) MG/5ML 5 mL Orally Twice a day Acti ve Fish Oil 1000 MG 1 capsule Orally Onc e a day Not-Taking Vitamin B12 1000 MCG 1 tablet Orally Onc e a day Active Atorvastatin Calcium 10 MG TAKE 1 TABLET BY MOUTH DAILY AT BEDTIME for 90 Active Wegovy 1 MG/0.5ML ADMINISTER 1 MG UNDE R THE SKIN 1 TIME A WEEK for 28 Active Latuda 80 MG 1 tablet in the even ing with food Orally Once a day Active Losartan Potassium 25 MG TAKE 1 TABLET B Y MOUTH DAILY for 90 Active Paxlovid (300/100) 20 x 150 MG & 10 x 100MG 3 tablets Orally Twice a day for 5 days 10/13/2023 Not-Taking traMADol HCl 50 MG 1 tablet Orally every 6 hours for 14 days As needed 04/23/2024 Active Potassium 99 MG 1 tablet Orally Once a day Active Multivitamin Adults 50+ - 1 tablet Orall y Every other day Not-Taking Amoxicillin 500 MG 1 capsule Orally eduarda ry 8 hrs for 7 days 10/12/2023 Not-Taking Social History Tobacco Use: Social History Observation [...] monthly (1 point) Points 2 Interpretation Negative Problems Problem Type SNOMED Code ICD Code Onset Dates Problem Status W/U Status Risk Notes Problem 112898819 Bariatric surger y status (Z98.84) Active confirmed Problem Pharyngitis (322392354) Pharyngitis (J02.9) Active confirmed Problem Iron deficiency anemia (45422374) Iron deficiency anemia (D50.9) Active confirmed Problem 250233296 Family history o f diabetes mellitus (DM) (Z83.3) Active confirmed Problem 272652565384915 Primary osteoarthritis of right knee (M17.11) Active confirmed Problem 188310641 Morbid obesity (E66.01) Active confirmed Problem 143598304 Lumbar spondylosis (M47.816) Active confirmed Problem 780639783262669 Primary osteoarthritis of right hip (M16.11) Active confirmed Problem 05776496 Other hyperlipidemia (E78.49) Active confirmed Problem 74425789 Bipolar affectiv e disorder, remission status unspecified (F31.9) Active confirmed Problem 46727213 Primary hypertension (I10) Active confirmed Problem 059989632 Lumbar back pain (M54.50) Active confirmed Problem 25884737 Vaginal candidiasis (B37.31) Active confirmed Vital Signs Heart Rate 78 /min 04/22/2024 ple Temperature 97.8 degrees Fahrenheit 04/22/2024 ple Respiratory Rate 16 /min 04/22/2024 ple Oximetry 100 % 04/22/2024 ple Blood pressure diastolic 82 mm Hg 04/22/2024 ple Height 66 in 04/22/2024 ple Blood pressure systolic 132 mm Hg 04/22/2024 ple Weight 275 lbs 04/22/2024 ple BMI 44.38 kg/m2 04/22/2024 ple Encounters Encounter Location Date Provider Diagnosis [address] [address] 08/09/2023 Clint Miller Primary osteoarthrit is of right knee M17.11 ; Primary osteoarthritis of right hip M16.11 ; Bipolar affective disorder, remission status unspecified F31.9 ; Anemia, unspecified type D64.9 ; Iron deficiency E61.1 ; Morbid obesity E66.01 ; Bariatric surgery status Z98.84 ; Family history of diabetes mellitus (DM) Z83.3 ; Lumbar back pain M54.50 and Primary hypertension I10 [facility] [address] [address] 08/21/2023 Clint Miller Primary hypertension I10 ; Other hyperlipidemia E78.49 ; Lumbar spondylosis M47.816 ; Anemia, unspecified type D64.9 ; Iron deficiency E61.1 ; Bipolar affective disorder, remission status unspecified F31.9 ; Lumbar back pain M54.50 and Morbid obesity E66.01 [facility] [address] [address] 09/04/2023 Clint Miller Primary hypertension I10 ; Other hyperlipidemia E78.49 ; Lumbar spondylosis M47.816 ; Bipolar affective disorder, remission status unspecified F31.9 and Morbid obesity E66.01 [facility] [address] [address] 09/18/2023 Clint Miller Primary hypertension I10 ; Other hyperlipidemia E78.49 ; Lumbar spondylosis M47.816 ; Morbid obesity E66.01 and Bipolar affective disorder, remission status unspecified F31.9 [place] [address] [address] 10/12/2023 Clint Miller Primary hypertension I10 ; Other hyperlipidemia E78.49 ; Morbid obesity E66.01 and Pharyngitis J02.9 [facility] [address] [address] 11/06/2023 Clint Miller Primary hypertension I10 ; Other hyperlipidemia E78.49 ; Morbid obesity E66.01 and Bipolar affective disorder, remission status unspecified F31.9 [facility] [address] [address] 12/04/2023 Clint Miller Primary hypertension I10 ; Other hyperlipidemia E78.49 ; Morbid obesity E66.01 and Lumbar spondylosis M47.816 [facility] [address] [address] 12/18/2023 Clint Miller Primary hypertension I10 ; Other hyperlipidemia E78.49 ; Iron deficiency anemia D50.9 and Morbid obesity E66.01 [facility] [address] [address] 02/29/2024 Clint Miller Primary hypertension I10 ; Other hyperlipidemia E78.49 ; Primary osteoarthritis of right knee M17.11 and Morbid obesity E66.01 [facility] [address] [address] 03/25/2024 Clint Miller Primary hypertension I10 ; Other hyperlipidemia E78.49 ; Primary osteoarthritis of right knee M17.11 and Morbid obesity E66.01 [facility] [address] [address] 04/22/2024 Clint Miller Primary hypertension I10 ; Other hyperlipidemia E78.49 ; Morbid obesity E66.01 ; Bipolar affective disorder, remission status unspecified F31.9 and Lumbar back pain M54.50 [facility] [address] [address] 12/06/2023 Clint Miller Morbid obesity E66.0 1 [facility] [address] [address] 12/06/2023 Clint Miller Morbid obesity E66.0 1 [facility] [address] [address] 04/23/2024 Clint Miller Morbid obesity E66.0 1 [facility] [address] [address] 08/21/2023 Clint Miller [facility] [address] [address] 09/18/2023 Clint Miller [facility] [address] [address] 10/13/2023 Clint Miller [facility] [address] [address] 11/06/2023 Clint Miller [facility] [address] [facility] [address] [place] [address] 11/07/2023 Clint Miller Morbid obesity E66.0 1 [facility] [address] [facility] [address] [place] [address] 11/07/2023 Clint [facility] [address] [facility] [address] [place] [address] 11/22/2023 Clint [facility] [address] [facility] [address] [place] [address] 12/18/2023 Clint [facility] [address] [facility] [address] [place] [address] 01/03/2024 Clint [facility] [address] [facility] [address] [place] [address] 01/30/2024 Clint Miller [facility] [address] [facility] [address] [place] [address] 03/04/2024 Clint Miller Morbid obesity E66.0 1 [facility] [address] [facility] [address] [place] [address] 04/23/2024 Clint Miller Assessments Encounter Date Diagnosis (ICD Code) Assessment Notes Treatment Notes Treatment Clinical Notes Section Notes 08/09/2023 Primary osteoarthritis of right knee (ICD-10 - M17.11) Arthritis: Care Instructions material was published to portal 08/09/2023 Primary osteoarthritis of right hip (ICD-10 - M16.11) 08/21/2023 Primary hypertension (ICD-10 - I10) High Blood Pressure: Care Instructions material was published 09/04/2023 Primary hypertension (ICD-10 - I10) 09/18/2023 Primary hypertension (ICD-10 - I10) High Blood Pressure: Care Instructions material was published 10/12/2023 Primary hypertension (ICD-10 - I10) High Blood Pressure: Care Instructions material was published 11/06/2023 Primary hypertension (ICD-10 - I10) High Blood Pressure: Care Instructions material was published 11/07/2023 Morbid obesity (ICD-10 - E66.01) 12/04/2023 Primary hypertension (ICD-10 - I10) High Blood Pressure: Care Instructions material was published 12/06/2023 Morbid obesity (ICD-10 - E66.01) 12/06/2023 Morbid obesity (ICD-10 - E66.01) 12/18/2023 Other hyperlipidemia (ICD-10 - E78.49) 12/18/2023 Primary hypertension (ICD-10 - I10) High Blood Pressure: Care Instructions material was published 02/29/2024 Primary hypertension (ICD-10 - I10) High Blood Pressure: Care Instructions material was published 03/04/2024 Morbid obesity (ICD-10 - E66.01) 03/25/2024 Primary hypertension (ICD-10 - I10) High Blood Pressure: Care Instructions material was published 04/22/2024 Primary hypertension (ICD-10 - I10) High Blood Pressure: Care Instructions material was published 04/23/2024 Morbid obesity (ICD-10 - E66.01) 03/25/2024 Other hyperlipidemia (ICD-10 - E78.49) 04/22/2024 Other hyperlipidemia (ICD-10 - E78.49) 11/06/2023 Other hyperlipidemia (ICD-10 - E78.49) 12/04/2023 Other hyperlipidemia (ICD-10 - E78.49) 02/29/2024 Other hyperlipidemia (ICD-10 - E78.49) 12/18/2023 Iron deficiency anemia (ICD-10 - D50.9) 10/12/2023 Other hyperlipidemia (ICD-10 - E78.49) 09/18/2023 Other hyperlipidemia (ICD-10 - E78.49) 09/04/2023 Other hyperlipidemia (ICD-10 - E78.49) 08/21/2023 Other hyperlipidemia (ICD-10 - E78.49) 08/09/2023 Bipolar affective disorder, remission status unspecified (ICD-10 - F31.9) 08/09/2023 Anemia, unspecified type (ICD-10 - D64.9) 08/21/2023 Lumbar spondylosis (ICD-10 - M47.816) 09/04/2023 Lumbar spondylosis (ICD-10 - M47.816) 09/18/2023 Lumbar spondylosis (ICD-10 - M47.816) 10/12/2023 Morbid obesity (ICD-10 - E66.01) 11/06/2023 Morbid obesity (ICD-10 - E66.01) 12/18/2023 Morbid obesity (ICD-10 - E66.01) 12/04/2023 Morbid obesity (ICD-10 - E66.01) 02/29/2024 Primary osteoarthritis of right knee (ICD-10 - M17.11) 04/22/2024 Morbid obesity (ICD-10 - E66.01) 03/25/2024 Primary osteoarthritis of right knee (ICD-10 - M17.11) 03/25/2024 Morbid obesity (ICD-10 - E66.01) 04/22/2024 Bipolar affective disorder, remission status unspecified (ICD-10 - F31.9) 02/29/2024 Morbid obesity (ICD-10 - E66.01) 11/06/2023 Bipolar affective disorder, remission status unspecified (ICD-10 - F31.9) 12/04/2023 Lumbar spondylosis (ICD-10 - M47.816) 10/12/2023 Pharyngitis (ICD-10 - J02.9) 09/18/2023 Morbid obesity (ICD-10 - E66.01) 09/04/2023 Bipolar affective disorder, remission status unspecified (ICD-10 - F31.9) 08/09/2023 Iron deficiency (ICD-10 - E61.1) 08/21/2023 Anemia, unspecified type (ICD-10 - D64.9) 08/21/2023 Iron deficiency (ICD-10 - E61.1) 08/09/2023 Morbid obesity (ICD-10 - E66.01) 09/04/2023 Morbid obesity (ICD-10 - E66.01) Body Mass Index: Care Instructions material was published 09/18/2023 Bipolar affective disorder, remission status unspecified (ICD-10 - F31.9) 04/22/2024 Lumbar back pain (ICD-10 - M54.50) 08/09/2023 Bariatric surgery status (ICD-10 - Z98.84) 08/21/2023 Bipolar affective disorder, remission status unspecified (ICD-10 - F31.9) 08/21/2023 Lumbar back pain (ICD-10 - M54.50) 08/09/2023 Family history of diabetes mellitus (DM) (ICD-10 - Z83.3) 08/09/2023 Lumbar back pain (ICD-10 - M54.50) 08/21/2023 Morbid obesity (ICD-10 - E66.01) 08/09/2023 Primary hypertension (ICD-10 - I10) Plan Of Treatment Next Appt Details Provider Name:Clint Covarrubias Johnathan andersen, 05/27/2024 03:30:00 PM, [address] [facility] [address], [place], [address], Insurance Providers Payer Name Payer Address Payer Phone Subscriber Number Group Number Insured Name Patient Relationship to Insured Coverage Start Date Coverage End Date [facility] 121 PPO [address] [place], [place] [id number] ALONSO KUNZ Self - patient is the insured [address] [place], [place] [id number] ALONSO KUNZ Self - patient is the insured Medications Administered Medication Instructions Date of Administration Dosage Notes Depo Medrol 80mg 02/29/2024 80 mg Right Kn ee Injection Medical (General) History Medical History History ICD Code Bipolar Iron defiency Surgical History Surgery Date(Month/Year) Gastric bypass 2018 C/Section 2004 Hospitalization History Reason Date(Month/Year) see above Vaginal delivery 1990
[2024-05-17 09:30] LABS: Hematocrit 37.2 % (37.0-47.0); Mean Corpuscular HGB Conc 29.6 g/dl (32-36); Mean Corpuscular Hemoglobin 27.9 pg (26-34); Mean Corpuscular Volume 94.4 fl (80-100); Mean Platelet Volume 9.2 fl (7.4-10.4); Platelet Count Result 442 k/mm3 (150-375); Red Blood Count 3.94 M/mm3 (4.2-5.4); Red Cell Distribution Width 16.3 % (11.5-14.5); White Blood Count 7.6 K/mm3 (4.5-10.0)
[2024-05-17 09:41] LABS: Anion Gap 9 mmol/L (4-12); Blood Urea Nitrogen 12 mg/dL (7-17); Calcium 9.2 mg/dL (8.4-10.2); Carbon Dioxide 28 mmol/L (22-30); Chloride 104 mmol/L (98-107); Estimated Glomerular Filt Rate > 60; Glucose 91 mg/dL (65-110); Potassium 4.3 mmol/L (3.4-5.0); Sodium 141 mmol/L (137-145)
== END 2024-05-17 08:01 | disposition home or self-care (01) ==
LOC: ANHLAB 08:02
PROVIDERS: PCP Family Medicine; Visit Provider Internal Medicine
DX: E66.01 Morbid (severe) obesity due to excess calories (principal); E78.5 Hyperlipidemia, unspecified; D50.9 Iron deficiency anemia, unspecified
CPT/HCPCS: 36415; 80048; 85027

== ENCOUNTER 2024-06-29 07:22 | Outpatient (CLI) | payer BC, OTHER, SELFPAY ==
--- OUTSIDE RECORDS SUMMARY | 2024-06-29 07:28 | XMS_ITS | Continuity of Care Document ---
Author Name [facility] Organization [facility] Care Team Providers Care Surgical Pathologist Name Role Phone [facility] Unavailable Unavailable Problems Combined list of problems from [facility] of [facility] and [facility] facilities. It does not include entries that were removed or entered in error. Problem Status Onset Date Problem Type Date of Resolution Comments Source Diagnosis: ICD-10-CM Z23 Encounter for immunization Active Diagnosis [facility] Diagnosis: ICD-10-CM Z13.89 Encounter for screening for other disorder Active Diagnosis [facility] Diagnosis: ICD-10-CM S83.011S Lateral subluxation of right patella, sequela Active Diagnosis [facility] Diagnosis: ICD-10-CM M23.8X1 Other internal derangements of right knee Active Diagnosis [facility] Diagnosis: ICD-10-CM Z51.89 Encounter for other specified aftercare Active Diagnosis [facility] Diagnosis: ICD-10-CM M17.9 Osteoarthritis of knee, unspecified [facility] Medications Combined list of outpatient medications from [facility] and [facility] facilities.Medications provided include 1) outpatient medications from [...] RULER ATTACHED INSIDE BOX) TOPICA L 05/19/2023 [id number] NICK PACKER 2023 100 [facility] N MELOXICAM 7.5MG TAB TAKE ONE TABLET BY MOUTH ONCE A DAY FOR PAIN ORAL 05/19/2023 [id number] NICK PACKER 2023 14 [facility] Immunizations Combined list of available immunizations from the Department of Defense and Veterans Affairs facilities. Immunization Series Date Given Administered By Site Reaction Lot Number CVX Code Drug Cad Detailer Status Comments Source COVID-19 (PFIZER), MRNA, LNP-S, PF, ROSANGELA-SUCROSE, 30 MCG/0.3 ML (AGES 12+ YEARS) 2023 CARMITA CAPUTO LEFT DELTO ID [id number] 309 complet ed [facility] INFLUENZA, SPLIT VIRUS, TRIVALENT, PF 2023 CARMITA CAPUTO RIGHT DELTO ID [id number] 140 complet ed [facility] INFLUENZA, INJECTABLE, QUADRIVALENT, PRESERVATIVE FREE 2022 LUCRETIA CABRERA LEFT DELTO ID [id number] 150 complet ed [facility] INFLUENZA, INJECTABLE, QUADRIVALENT, PRESERVATIVE FREE 2021 150 complet ed [facility] INFLUENZA, INJECTABLE, QUADRIVALENT, PRESERVATIVE FREE 2020 150 complet ed [facility] INFLUENZA, INJECTABLE, QUADRIVALENT, PRESERVATIVE FREE 2019 150 complet ed [facility] INFLUENZA, INJECTABLE, QUADRIVALENT, PRESERVATIVE FREE 2018 150 complet ed [facility] INFLUENZA, INJECTABLE, QUADRIVALENT, PRESERVATIVE FREE 2017 150 complet ed [facility] HEP B, ADULT 2015 43 complet ed [facility] MMR 2015 03 complet ed [facility] HEP B, ADULT 2014 43 complet ed [facility] MMR 2014 03 complet ed [facility] HEP B, ADULT 2014 43 complet ed [facility] Encounters Combined list of: 1) Encounters from Department of Veterans Affairs facilities going backup to the last 18 months, not all [place] inpatient encounters are included; 2) Encounters from the Department of Defense facilities going backup to 280 months. Location Location Details Encounter Type Encounter Number Reason For Visit Attending Provider ADM Date DC Date Status Disposition Source [facility] OFFICE O/P EST MOD 30 MIN [id number] [id number] Diagnos is: ICD-10- CM M17.9 Osteoar thritis of knee, unspeci fied NICK PACKER 04/19 [facility] GRMNT COVER 51724-6.65 [id number] Diagnos is: ICD-10- CM Z51.89 Encount er for other specifi ed afterca DIOMEDES Nieto SE 04/19 [facility] OFFICE O/P EST MOD 30 MIN 51369-5.65 [id number] Diagnos is: ICD-10- CM M23.8X1 Other interna l derange ments of right knee NICK PACKER 04/25 [facility] Outpatient Encounter [id number] 05/02 [facility] PATIENT EDUCATION MATERIALS [id number] Diagnos is: ICD-10- CM S83.011 S Lateral subluxa tion of right patella , sequela RYNE CAPUTO 05/04 [facility] Outpatient Encounter [id number] Diagnos is: ICD-10- CM Z13.89 Encount er for screeni ng for other disorde AKBAR Hunter 06/13 [facility] MARCELA Kan [facility] [place]UNIZATI [place] ADMIN [id number] [id number] Diagnos is: ICD-10- CM Z23 Encount er for immuniz RYNE Myers 01/04 [facility] MARCELA N
--- OUTSIDE RECORDS SUMMARY | 2024-06-29 07:28 | XMS_ITS ---
Author Organization [facility] Address [address] [facility] [address] [place] [address] Care Team Providers Care [employer] Name Role Phone Clint Miller Primary Care Provider [phone] Encounters Encounter Location Date Provider Diagnosis [facility] [address] [facility] [address] [place] [address] 05/27/2024 Clint Miller Plan Of Treatment Next Appt Details Provider Name:Cilnt andersen, 07/01/2024 03:45:00 PM, [address] [facility], [place], [address], Progress Notes * ALONSO KUNZDOB:1970 (54 yo F)Acc No.[id number]:05/27/2024 Progress Notes Patient: ALONSO HARE Provider: Robson Miller M.D. :1970 A ge:54 Y S ex:Female Date:05/27/2024 Address:[address] [place], [place] [id number] Subjective: * Chief Complaints: * * Medical History: Objective: * Vitals: Assessment: Plan: * Treatment: * * Electronic signature of Mary Miller MD on 06/29/2024 at 08:28 AM EDT Sign off status: Pending * Provider: Robson Miller M.D. Date: 0 05/27/2024 Generated for [place] ng/Faxing/eTransmitting on: 0 06/29/2024 08:28 AM EDT
--- OUTSIDE RECORDS SUMMARY | 2024-06-29 07:28 | XMS_ITS | Patient Health Record ---
Author Organization [facility] Address [address] [address] Care Team Providers Care Owner Manager Name Role Phone Aamir Millerbbir Primary Care Provider Allergies No Known Allergies Reason For Referral No Information Medications Medication SIG (Take, Route, Frequency, Duration) Notes Start Date End Date Status Latuda 80 MG 1 tablet in the even ing with food Orally Once a day Active Ferrous Sulfate 220 (44 Fe) MG/5ML 5 mL Orally Twice a day Acti ve traMADol HCl 50 MG 1 tablet Orally every 6 hours for 14 days As needed 06/24/2024 Active Vitamin B12 1000 MCG 1 tablet Orally Onc e a day Active Wegovy 1 MG/0.5ML 0.5 mL Subcutaneous Once a week for 28 days Active Potassium 99 MG 1 tablet Orally Once a day Active Fish Oil 1000 MG 1 capsule Orally Onc e a day Not-Taking Multivitamin Adults 50+ - 1 tablet Orally Every other day Not-Taking Paxlovid (300/100) 20 x 150 MG & 10 x 100MG 3 tablets Orally Twice a day for 5 days 10/13/2023 Not-Taking Amoxicillin 500 MG 1 capsule Orally eduarda ry 8 hrs for 7 days 10/12/2023 Not-Taking Atorvastatin Calcium 10 MG TAKE 1 TABLET BY MOUTH DAILY AT BEDTIME for 90 Active Losartan Potassium 25 MG TAKE 1 TABLET B Y MOUTH DAILY for 90 Active Social History Tobacco Use: Social History [...] Problem Status W/U Status Risk Notes Problem 264697990 Bariatric surger y status (Z98.84) Active confirmed Problem Pharyngitis (121448960) Pharyngitis (J02.9) Active confirmed Problem Iron deficiency anemia (67564807) Iron deficiency anemia (D50.9) Active confirmed Problem 530779149 Family history o f diabetes mellitus (DM) (Z83.3) Active confirmed Problem 560190067684899 Primary osteoarthritis of right knee (M17.11) Active confirmed Problem 378136117 Morbid obesity (E66.01) Active confirmed Problem 615735234 Lumbar spondylosis (M47.816) Active confirmed Problem 733629321855474 Primary osteoarthritis of right hip (M16.11) Active confirmed Problem 94590191 Other hyperlipidemia (E78.49) Active confirmed Problem 48099386 Bipolar affectiv e disorder, remission status unspecified (F31.9) Active confirmed Problem 47659712 Primary hypertension (I10) Active confirmed Problem 339845084 Lumbar back pain (M54.50) Active confirmed Problem 48237200 Vaginal candidiasis (B37.31) Active confirmed Vital Signs Heart Rate 78 /min 04/22/2024 ple Temperature 97.8 degrees Fahrenheit 04/22/2024 ple Respiratory Rate 16 /min 04/22/2024 ple Blood pressure diastolic 82 mm Hg 04/22/2024 ple Oximetry 100 % 04/22/2024 ple Height 66 in 05/24/2024 ple Blood pressure systolic 132 mm Hg 04/22/2024 ple Weight 275 lbs 04/22/2024 ple BMI 44.38 kg/m2 04/22/2024 ple Encounters Encounter Location Date Provider Diagnosis [address] [address] 08/09/2023 Clint Miller Primary osteoarthrit is of right knee M17.11 ; Primary osteoarthritis of right hip M16.11 ; Bipolar affective disorder, remission status unspecified F31.9 ; Anemia, unspecified type D64.9 ; Iron deficiency E61.1 ; Morbid obesity E66.01 ; Bariatric surgery status Z98.84 ; Family history of diabetes mellitus (DM) Z83.3 ; Lumbar back pain M54.50 and Primary hypertension I10 [facility] [address] [address] 08/21/2023 Clint Miller Primary hypertension I10 ; Other hyperlipidemia E78.49 ; Lumbar spondylosis M47.816 ; Anemia, unspecified type D64.9 ; Iron deficiency E61.1 ; Bipolar affective disorder, remission status unspecified F31.9 ; Lumbar back pain M54.50 and Morbid obesity E66.01 [facility] [address] [address] 09/04/2023 Clint Miller Primary hypertension I10 ; Other hyperlipidemia E78.49 ; Lumbar spondylosis M47.816 ; Bipolar affective disorder, remission status unspecified F31.9 and Morbid obesity E66.01 [facility] [address] [address] 09/18/2023 Clint Miller Primary hypertension I10 ; Other hyperlipidemia E78.49 ; Lumbar spondylosis M47.816 ; Morbid obesity E66.01 and Bipolar affective disorder, remission status unspecified F31.9 [place] [address] [address] 10/12/2023 Clint Miller Primary hypertension I10 ; Other hyperlipidemia E78.49 ; Morbid obesity E66.01 and Pharyngitis J02.9 [facility] [address] [address] 11/06/2023 Clint Miller Primary hypertension I10 ; Other hyperlipidemia E78.49 ; Morbid obesity E66.01 and Bipolar affective disorder, remission status unspecified F31.9 [place] [address] [address] 12/04/2023 Clint Miller Primary hypertension I10 ; Other hyperlipidemia E78.49 ; Morbid obesity E66.01 and Lumbar spondylosis M47.816 [facility] [address] [address] 12/18/2023 Clint Miller Primary hypertension I10 ; Other hyperlipidemia E78.49 ; Iron deficiency anemia D50.9 and Morbid obesity E66.01 [facility] [address] [address] 02/29/2024 Clint Miller Primary hypertension I10 ; Other hyperlipidemia E78.49 ; Primary osteoarthritis of right knee M17.11 and Morbid obesity E66.01 [facility] [address] [address] 03/25/2024 Clint Miller Primary hypertension I10 ; Other hyperlipidemia E78.49 ; Primary osteoarthritis of right knee M17.11 and Morbid obesity E66.01 [facility] [address] [address] 04/22/2024 Clint Miller Primary hypertension I10 ; Other hyperlipidemia E78.49 ; Morbid obesity E66.01 ; Bipolar affective disorder, remission status unspecified F31.9 and Lumbar back pain M54.50 [facility] [address] [address] 05/24/2024 Clint Miller Primary hypertension I10 ; Other hyperlipidemia E78.49 ; Morbid obesity E66.01 ; Bipolar affective disorder, remission status unspecified F31.9 ; Bariatric surgery status Z98.84 and Primary osteoarthritis of right knee M17.11 [facility] [address] [address] 12/06/2023 Clint Miller Morbid obesity E66.0 1 [facility] [address] [address] 12/06/2023 Clint Miller Morbid obesity E66.0 1 [facility] [address] [address] 04/23/2024 Clint Miller Morbid obesity E66.0 1 [facility] [address] [address] 06/24/2024 Clint Miller Morbid obesity E66.0 1 [facility] [address] [address] 08/21/2023 Clint Miller [facility] [address] [facility] [place] [address] 09/18/2023 Clint Miller [facility] [address] [facility] [place] [address] 10/13/2023 Clint Miller [facility] [address] [facility] [place] [address] 11/06/2023 Clint Miller [facility] [address] [facility] [place] [address] 11/07/2023 Clint Miller Morbid obesity E66.0 1 [facility] [address] [facility] [place] [address] 11/07/2023 Clint Miller [facility] [address] [facility] [place] [address] 11/22/2023 Clint Miller [facility] [address] [facility] [place] [address] 12/18/2023 Clint Miller [facility] [address] [facility] [place] [address] 01/03/2024 Clint Miller [facility] [address] [facility] [place] [address] 01/30/2024 Clint Miller [facility] [address] [facility] [place] [address] 03/04/2024 Clint Miller Morbid obesity E66.0 1 [facility] [address] [facility] [place] [address] 04/23/2024 Clint Miller [facility] [address] [facility] [place] [address] 05/24/2024 Clint Miller [facility] [address] [facility] [place] [address] 06/24/2024 Clint Miller Assessments Encounter Date Diagnosis (ICD [...] published 11/07/2023 Morbid obesity (ICD-10 - E66.01) 11/06/2023 Primary hypertension (ICD-10 - I10) High Blood Pressure: Care Instructions material was published 12/06/2023 Morbid obesity (ICD-10 - E66.01) 12/06/2023 Morbid obesity (ICD-10 - E66.01) 12/04/2023 Primary hypertension (ICD-10 - I10) High Blood Pressure: Care Instructions material was published 12/18/2023 Primary hypertension (ICD-10 - I10) High Blood Pressure: Care Instructions material was published 12/18/2023 Other hyperlipidemia (ICD-10 - E78.49) 02/29/2024 Primary hypertension (ICD-10 - I10) High Blood Pressure: Care Instructions material was published 03/04/2024 Morbid obesity (ICD-10 - E66.01) 03/25/2024 Primary hypertension (ICD-10 - I10) High Blood Pressure: Care Instructions material was published 04/22/2024 Primary hypertension (ICD-10 - I10) High Blood Pressure: Care Instructions material was published 04/23/2024 Morbid obesity (ICD-10 - E66.01) 05/24/2024 Primary hypertension (ICD-10 - I10) High Blood Pressure: Care Instructions material was published 06/24/2024 Morbid obesity (ICD-10 - E66.01) 08/21/2023 Other hyperlipidemia (ICD-10 - E78.49) 05/24/2024 Other hyperlipidemia (ICD-10 - E78.49) 04/22/2024 Other hyperlipidemia (ICD-10 - E78.49) 03/25/2024 Other hyperlipidemia (ICD-10 - E78.49) 02/29/2024 Other hyperlipidemia (ICD-10 - E78.49) 12/18/2023 Iron deficiency anemia (ICD-10 - D50.9) 12/04/2023 Other hyperlipidemia (ICD-10 - E78.49) 11/06/2023 Other hyperlipidemia (ICD-10 - E78.49) 10/12/2023 Other hyperlipidemia (ICD-10 - E78.49) 09/18/2023 Other hyperlipidemia (ICD-10 - E78.49) 09/04/2023 Other hyperlipidemia (ICD-10 - E78.49) 08/09/2023 Bipolar affective disorder, remission status unspecified (ICD-10 - F31.9) 08/09/2023 Anemia, unspecified type (ICD-10 - D64.9) 09/04/2023 Lumbar spondylosis (ICD-10 - M47.816) 08/21/2023 Lumbar spondylosis (ICD-10 - M47.816) 09/18/2023 Lumbar spondylosis (ICD-10 - M47.816) 10/12/2023 Morbid obesity (ICD-10 - E66.01) 11/06/2023 Morbid obesity (ICD-10 - E66.01) 12/04/2023 Morbid obesity (ICD-10 - E66.01) 12/18/2023 Morbid obesity (ICD-10 - E66.01) 02/29/2024 Primary osteoarthritis of right knee (ICD-10 - M17.11) 03/25/2024 Primary osteoarthritis of right knee (ICD-10 - M17.11) 04/22/2024 Morbid obesity (ICD-10 - E66.01) 05/24/2024 Morbid obesity (ICD-10 - E66.01) 05/24/2024 Bipolar affective disorder, remission status unspecified (ICD-10 - F31.9) 04/22/2024 Bipolar affective disorder, remission status unspecified (ICD-10 - F31.9) 03/25/2024 Morbid obesity (ICD-10 - E66.01) 02/29/2024 Morbid obesity (ICD-10 - E66.01) 12/04/2023 Lumbar spondylosis (ICD-10 - M47.816) 11/06/2023 Bipolar affective disorder, remission status unspecified (ICD-10 - F31.9) 10/12/2023 Pharyngitis (ICD-10 - J02.9) 09/18/2023 Morbid obesity (ICD-10 - E66.01) 08/21/2023 Anemia, unspecified type (ICD-10 - D64.9) 09/04/2023 Bipolar affective disorder, remission status unspecified (ICD-10 - F31.9) 08/09/2023 Iron deficiency (ICD-10 - E61.1) 08/09/2023 Morbid obesity (ICD-10 - E66.01) 09/04/2023 Morbid obesity (ICD-10 - E66.01) Body Mass Index: Care Instructions material was published 08/21/2023 Iron deficiency (ICD-10 - E61.1) 09/18/2023 Bipolar affective disorder, remission status unspecified (ICD-10 - F31.9) 04/22/2024 Lumbar back pain (ICD-10 - M54.50) 05/24/2024 Bariatric surgery status (ICD-10 - Z98.84) 05/24/2024 Primary osteoarthritis of right knee (ICD-10 - M17.11) 08/21/2023 Bipolar affective disorder, remission status unspecified (ICD-10 - F31.9) 08/09/2023 Bariatric surgery status (ICD-10 - Z98.84) 08/09/2023 Family history of diabetes mellitus (DM) (ICD-10 - Z83.3) 08/21/2023 Lumbar back pain (ICD-10 - M54.50) 08/21/2023 Morbid obesity (ICD-10 - E66.01) 08/09/2023 Lumbar back pain (ICD-10 - M54.50) 08/09/2023 Primary hypertension (ICD-10 - I10) Plan Of Treatment Next Appt Details Provider Name:Clint andersen, 07/01/2024 03:45:00 PM, [address] [facility], [address], [place], [address], Insurance Providers Payer Name Payer Address Payer Phone Subscriber Number Group Number Insured Name Patient Relationship to Insured Coverage Start Date Coverage End Date [address] [place], [place] [id number] ALONSO KUNZ Self - patient is the insured [facility] [address] [place] [id number] [phone] [id number] ALONSO KUNZ Self - patient is the insured Medications Administered Medication Instructions Date of Administration Dosage Notes Depo Medrol 80mg 02/29/2024 80 mg Right Kn ee Injection Medical (General) History Medical History History ICD Code Bipolar Iron defiency Surgical History Surgery Date(Month/Year) Gastric bypass 2018 C/Section 2004 Hospitalization History Reason Date(Month/Year) see above Vaginal delivery 1990
--- OUTSIDE RECORDS SUMMARY | 2024-06-29 07:28 | XMS_ITS ---
Author Organization [facility] Address [address] [address] Care Team Providers Care Food And Beverage Manager Name Role Phone Clint Miller Primary Care Provider [phone] Medications Medication SIG (Take, Route, Fr equency, Duration) Notes Start Date End Date Status traMADol HCl 50 MG 1 tablet Orally every 6 hours for 14 days As needed 06/24/2024 Active Encounters Encounter Location Date Provider Diagnosis [facility] [address] [facility] [place] [address] 06/24/2024 Clint Miller Plan Of Treatment Medication Medication Name Sig Start Date Stop Date Notes traMADol HCl 50 MG 1 tablet Orally ever y 6 hours for 14 days 06/24/2024 Next Appt Details Provider Name:Clint andersen, 07/01/2024 03:45:00 PM, [address] [facility], [place], [address], Progress Notes * ALONSO KUNZDOB:1970 (54 yo F)Acc No.[id number]:06/24/2024 Patient: ERICKSON HAREHA :1970 A ge:54 Y S ex:Female Address:[address] [place] [address], [address] * Refills Refill traMADol HCl Tablet, 50 MG, Orally, 56 Tablet, 1 tablet, every 6 hours, 14 days, Refills=0 * true * Date: Generated for Carson lópez/Penelope/eTransmitting on: 0 06/29/2024 08:27 AM EDT
--- OUTSIDE RECORDS SUMMARY | 2024-06-29 07:28 | XMS_ITS ---
Author Organization [facility] Address [address] [address] Care Team Providers Care Timber Repairer Name Role Phone Clint Miller Primary Care Provider Medications Medication SIG (Take, Route, Fr equency, Duration) Notes Start Date End Date Status Wegovy 1 MG/0.5ML 0.5 mL Subcutaneous Once a week for 28 days Active Encounters Encounter Location Date Provider Diagnosis [facility] [address] [facility] [place] [address] 06/24/2024 Clint Miller Morbid obesity E66.01 Assessments Encounter Date Diagnosis (ICD Code) Assessment Notes Treatment Notes Treatment Clinical Notes Section Notes 06/24/2024 Morbid obesity (ICD-10 - E66.01) Plan Of Treatment Medication Medication Name Sig Start Date Stop Date Notes Wegovy 1 MG/0.5ML 0.5 mL Subcutaneous Once a week for 28 days Next Appt Details Provider Name:Clint andersen, 07/01/2024 03:45:00 PM, [address] [facility], [place], [address], Progress Notes * ALONSO KUNZDOB:1970 (54 yo F)Acc No.[id number]:06/24/2024 Patient: ALONSO HARE :1970 A ge:54 Y S ex:Female Address:[address] [place] [address], [address] * Refills Refill Wegovy Solution Auto-injector, 1 MG/0.5ML, Subcutaneous, 0.5 mL, Once a week, 28 days, Refills=0 * * Date:
--- OUTSIDE RECORDS SUMMARY | 2024-06-29 07:28 | XMS_ITS | Clinical Summary ---
Author Organization [facility] Address [address] [place] [address] Care Team Providers Care Supervisor Throwing Department Name Role Phone Lincoln Freedman MD Primary [...] Encounters Date Type Department Care Team Description 06/25/2024 External Device Data STL ABSTRACTION Provider, Abstract 05/08/2024 External Device Data ST[facility] ABSTRACTION Provider, [...] Comments Blood Pressure 122/85 03/04/2024 8:59 AM MANAGER TALENT ACQUISITION Pulse 82 03/04/2024 8:59 AM MANAGER TALENT ACQUISITION Temperature 36.3 C (97.4 F) 03/04/2024 8:59 AM MANAGER TALENT ACQUISITION Respiratory Rate 16 03/04/2024 8:59 AM MANAGER TALENT ACQUISITION Oxygen Saturation 96% 03/04/2024 8:59 AM MANAGER TALENT ACQUISITION Inhaled Oxygen Concentration - - Weight 126.6 kg (279 lb 3.2 oz) 03/04/2024 8:59 AM MANAGER TALENT ACQUISITION Height 167.6 cm (5' 6 ) 05/15/2023 1:18 PM CDT Body Mass Index 45.06 05/15/2023 1:18 PM CDT Plan of Treatment Upcoming Encounters Date Type Department Care Team (Late st Contact Info) Description 08/26/2024 3:45 PM CDT Office Visit [facility] Oncology and Hematology - [facility] [address] [facility] [address] [place] [address] Arian Leonard MD [address] [facility] [address] [place] [address] Health Maintenance Due Date Last Done Comments Pre-Diabetes and Diabetes Screening 1970 DTAP/TDAP/TD VACCINES (1 - Tdap) 1989 HEPATITIS B VACCINES (1 of 3 - 19+ 3-dose series) 1989 05/05/2015, 02/09/2015, 11/03/2014 HPV/Cotest (21-29) 1991 CERVICAL CANCER SCREENING 2000 HPV/Cotest (30-65) 2000 PAP SMEAR 2000 BREAST CANCER SCREENING 2010 COLORECTAL SCREENING 2015 Colorectal Cancer Screening 2015 FIT-DNA Q 3 years 2015 FIT/FOBT Q 1 year 2015 Flex Sig/CT Colonography Q 5 years 2015 ZOSTER VACCINE (1 of 2) 2020 Preventative Visit- Commercial 02/21/2024 COVID-19 Vaccine Completed 01/05/2024 INFLUENZA VACCINE Completed 01/05/2024, , 12/22/2021, Additional history exists Insurance [facility] Care Teams Supervisor Throwing Department Relationship Specialty Start Date End Date Lincoln Freedman MD [address] [place] [address] PCP - General Family Practice 10/12/18
[2024-06-29 08:48] LABS: Anion Gap 4 mmol/L (4-12); Blood Urea Nitrogen 16 mg/dL (7-17); Calcium 8.6 mg/dL (8.4-10.2); Carbon Dioxide 30 mmol/L (22-30); Chloride 107 mmol/L (98-107); Estimated Glomerular Filt Rate > 60; Glucose 98 mg/dL (65-110); Potassium 4.3 mmol/L (3.4-5.0); Sodium 141 mmol/L (137-145)
== END 2024-06-29 07:23 | disposition home or self-care (01) ==
LOC: ANHLAB 07:25
PROVIDERS: PCP Family Medicine; Visit Provider Internal Medicine
DX: E78.5 Hyperlipidemia, unspecified (principal); I10 Essential (primary) hypertension; D50.9 Iron deficiency anemia, unspecified; E66.01 Morbid (severe) obesity due to excess calories
CPT/HCPCS: 36415; 80048

== ENCOUNTER 2024-07-19 07:12 | Outpatient (CLI) | payer BC, OTHER, SELFPAY ==
--- OUTSIDE RECORDS SUMMARY | 2024-07-19 07:15 | XMS_ITS ---
Author Organization [facility] Address [address] [address] Care Team Providers Care Entrance Guard Name Role Phone Clint Miller Primary Care Provider Allergies No Known Allergies REASON FOR VISIT Video - F/U MO Medications Medication SIG (Take, Route, Frequency, Duration) [...] 8 hrs for 7 days 10/12/2023 Not-Taking traMADol HCl 50 MG 1 tablet Orally every 6 hours for 14 days As needed 04/23/2024 Active Latuda 80 MG 1 tablet in the even ing with food Orally Once a day Active Ferrous Sulfate 220 (44 Fe) MG/5ML 5 mL Orally Twice a day Acti ve Wegovy 1 MG/0.5ML 0.5 mL Subcutaneous Once a week for 28 days Active Atorvastatin Calcium 10 MG TAKE 1 TABLET BY MOUTH DAILY AT BEDTIME for 90 Active Losartan Potassium 25 MG TAKE 1 TABLET B Y MOUTH DAILY for 90 Active Vitamin B12 1000 MCG 1 tablet [...] point) Points 2 Interpretation Negative Vital Signs Height 66 in 05/24/2024 ple Encounters Encounter Location Date Provider Diagnosis [facility] [address] [facility] [address] [place] [address] 05/24/2024 Clint Miller Primary hypertension I10 ; Other hyperlipidemia E78.49 ; Morbid obesity E66.01 ; Bipolar affective disorder, remission status unspecified F31.9 ; Bariatric surgery status Z98.84 and Primary osteoarthritis of right knee M17.11 Assessments Encounter Date Diagnosis (ICD Code) Assessment Notes Treatment Notes Treatment Clinical Notes Section Notes 05/24/2024 Primary hypertension (ICD-10 - I10) High Blood Pressure: Care Instructions material was published 05/24/2024 Other hyperlipidemia (ICD-10 - E78.49) 05/24/2024 Morbid obesity (ICD-10 - E66.01) 05/24/2024 Bipolar affective disorder, remission status unspecified (ICD-10 - F31.9) 05/24/2024 Bariatric surgery status (ICD-10 - Z98.84) 05/24/2024 Primary osteoarthritis of right knee (ICD-10 - M17.11) Plan Of Treatment Treatment Notes Assessment Notes Primary hypertension High Blood Pressure : Care Instructions material was published Next Appt Details Provider Name:Clint andersen, 07/22/2024 03:45:00 PM, [address] [facility], [address], [place], [address], Progress Notes * ALONSO KUNZDOB:1970 (54 yo F)Acc No.[id number]:05/24/2024 Progress Notes Patient: ERICKSON HAREHA Provider: Robson Miller M.D. :1970 A ge:54 Y S ex:Female Date:05/24/2024 Address:[address] [place] [address] Subjective: * Chief Complaints: * 1 . Video - F/U MO. * Medical History: B ipolar, Iron defiency. [...] BY MOUTH DAILY AT BEDTIME , Taking Wegovy 1 MG/0.5ML Solution Auto-injector 0.5 mL Subcutaneous Once a week , Taking traMADol HCl 50 MG Tablet 1 tablet Orally every 6 hours As needed, Not-Taking/PRN Amoxicillin 500 MG Capsule 1 capsule [...] * Allergies: N .K.D.A. Objective: * Vitals: H t: 66 in, Ht-cm: 167.64 cm. ple. Assessment: * Assessment: 1. P rimary hypertension - I10 (Primary) 2 . O ther hyperlipidemia - E78.49? 3. M orbid obesity - E66.01 4 . B ipolar affective disorder, remission status unspecified - F31.9 5 . B ariatric surgery status - Z98.84 6. P rimary osteoarthritis of right knee - M17.11 Plan: * Treatment: * Preventive Medicine: Counseling: C are goal follow-up plan: A carlos alberto Normal BMI Follow-up G iving encouragement to exercise, Lifestyle education regarding diet. * * Electronic signature of Mary Miller MD on 07/19/2024 at 08:15 AM EDT Sign off status: Pending * Provider: Robson Miller M.D. Date: 0 05/24/2024 Generated for Carson lópez/Penelope/Luluitting on: 0 07/19/2024 08:15 AM EDT
--- OUTSIDE RECORDS SUMMARY | 2024-07-19 07:15 | XMS_ITS | Patient Health Record ---
Author Organization [facility] Address [address] [address] Care Team Providers Care Nurse [facility] Name Role Phone Clint Miller Primary Care Provider Allergies No Known Allergies Reason For Referral No Information Medications Medication SIG (Take, Route, Frequency, Duration) Notes Start Date End Date Status Wegovy 1.7 MG/0.75ML 0.75 mL Subcutaneou s Once a week for 28 days Active Ferrous Sulfate 220 (44 Fe) MG/5ML 5 mL Orally Twice a day Acti ve Latuda 80 MG 1 tablet in the even ing with food Orally Once a day Active Losartan Potassium 25 MG TAKE 1 TABLET B Y MOUTH DAILY for 90 Active Atorvastatin Calcium 10 MG TAKE 1 TABLET BY MOUTH DAILY AT BEDTIME for 90 Active traMADol HCl 50 MG 1 tablet Orally every 6 hours for 14 days As needed 07/18/2024 Active Amoxicillin 500 MG 1 capsule Orally eduarda ry 8 hrs for 7 days 10/12/2023 Not-Taking Paxlovid (300/100) 20 x 150 MG & 10 x 100MG 3 tablets Orally Twice a day for 5 days 10/13/2023 Not-Taking Multivitamin Adults 50+ - 1 tablet Orally Every other day Not-Taking Potassium 99 MG 1 tablet Orally Once a day Active Fish Oil 1000 MG 1 capsule Orally Onc e a day Not-Taking Vitamin B12 1000 MCG 1 tablet Orally Onc e a day Active Social History Tobacco Use: [...] Problem Status W/U Status Risk Notes Problem 321813968 Bariatric surger y status (Z98.84) Active confirmed Problem Pharyngitis (947931928) Pharyngitis (J02.9) Active confirmed Problem Iron deficiency anemia (D50.9) Active confirmed Problem 693494079 Family history o f diabetes mellitus (DM) (Z83.3) Active confirmed Problem 962471421507954 Primary osteoarthritis of right knee (M17.11) Active confirmed Problem 824804298 Morbid obesity (E66.01) Active confirmed Problem 393913877 Lumbar spondylosis (M47.816) Active confirmed Problem 986785063768205 Primary osteoarthritis of right hip (M16.11) Active confirmed Problem 05235412 Other hyperlipidemia (E78.49) Active confirmed Problem 35681456 Bipolar affectiv e disorder, remission status unspecified (F31.9) Active confirmed Problem 56897381 Primary hypertension (I10) Active confirmed Problem 987451494 Lumbar back pain (M54.50) Active confirmed Problem 92552481 Vaginal candidiasis (B37.31) Active confirmed Vital Signs Heart Rate 79 /min 07/01/2024 ple Temperature 98.1 degrees Fahrenheit 07/01/2024 ple Respiratory Rate 16 /min 07/01/2024 ple Blood pressure diastolic 82 mm Hg 07/01/2024 ple Oximetry 100 % 07/01/2024 ple Height 66 in 07/01/2024 ple Blood pressure systolic 120 mm Hg 07/01/2024 ple Weight 261 lbs 07/01/2024 ple BMI 42.12 kg/m2 07/01/2024 ple Encounters Encounter Location Date Provider Diagnosis [address] [address] 08/09/2023 Clint Miller Primary osteoarthrit is of right knee M17.11 ; Primary osteoarthritis of right hip M16.11 ; Bipolar affective disorder, remission status unspecified F31.9 ; Anemia, unspecified type D64.9 ; Iron deficiency E61.1 ; Morbid obesity E66.01 ; Bariatric surgery status Z98.84 ; Family history of diabetes mellitus (DM) Z83.3 ; Lumbar back pain M54.50 and Primary hypertension I10 [facility] [address] [address] 08/21/2023 Clint Miller Primary hypertension I10 ; Other hyperlipidemia E78.49 ; Lumbar spondylosis M47.816 ; Anemia, unspecified type D64.9 ; Iron deficiency E61.1 ; Bipolar affective disorder, remission status unspecified F31.9 ; Lumbar back pain M54.50 and Morbid obesity E66.01 [facility] [address] [address] 09/04/2023 Clint Miller Primary hypertension I10 ; Other hyperlipidemia E78.49 ; Lumbar spondylosis M47.816 ; Bipolar affective disorder, remission status unspecified F31.9 and Morbid obesity E66.01 [facility] [address] [address] 09/18/2023 Clint Miller Primary hypertension I10 ; Other hyperlipidemia E78.49 ; Lumbar spondylosis M47.816 ; Morbid obesity E66.01 and Bipolar affective disorder, remission status unspecified F31.9 [place] [address] [address] 10/12/2023 Clint Miller Primary hypertension I10 ; Other hyperlipidemia E78.49 ; Morbid obesity E66.01 and Pharyngitis J02.9 [facility] [address] [address] 11/06/2023 Clint Miller Primary hypertension I10 ; Other hyperlipidemia E78.49 ; Morbid obesity E66.01 and Bipolar affective disorder, remission status unspecified F31.9 [facility] [address] [address] 12/04/2023 Clint Miller Primary hypertension I10 ; Other hyperlipidemia E78.49 ; Morbid obesity E66.01 and Lumbar spondylosis M47.816 [facility] [address] [address] 12/18/2023 Clint Miller Primary hypertension I10 ; Other hyperlipidemia E78.49 ; Iron deficiency anemia D50.9 and Morbid obesity E66.01 [facility] [address] [address] 02/29/2024 Clint Miller Primary hypertension I10 ; Other hyperlipidemia E78.49 ; Primary osteoarthritis of right knee M17.11 and Morbid obesity E66.01 [facility] [address] [address] 03/25/2024 Clint Miller Primary hypertension I10 ; Other hyperlipidemia E78.49 ; Primary osteoarthritis of right knee M17.11 and Morbid obesity E66.01 [facility] [address] [address] 04/22/2024 Clint Miller Primary hypertension I10 ; Other hyperlipidemia E78.49 ; Morbid obesity E66.01 ; Bipolar affective disorder, remission status unspecified F31.9 and Lumbar back pain M54.50 [facility] [address] [address] 05/24/2024 Clint Miller Primary hypertension I10 ; Other hyperlipidemia E78.49 ; Morbid obesity E66.01 ; Bipolar affective disorder, remission status unspecified F31.9 ; Bariatric surgery status Z98.84 and Primary osteoarthritis of right knee M17.11 [facility] [address] [address] 07/01/2024 Clint Miller Primary hypertension I10 ; Other hyperlipidemia E78.49 ; Morbid obesity E66.01 ; Bipolar affective disorder, remission status unspecified F31.9 and Lumbar back pain M54.50 [facility] [address] [address] 12/06/2023 Clint Miller Morbid obesity E66.0 1 [facility] [address] [address] 12/06/2023 Clint Miller Morbid obesity E66.0 1 [facility] [address] [address] 04/23/2024 Clint Miller Morbid obesity E66.0 1 [facility] [address] [place] [address] 06/24/2024 Clint Miller Morbid obesity E66.0 1 [facility] [address] [place] [address] 08/21/2023 Clint Miller [facility] [address] [facility] [address] [place] [address] 09/18/2023 Clint Miller [facility] [address] [place] [address] 10/13/2023 Clint Miller [facility] [address] [facility] [address] [place] [address] 11/06/2023 Clint Miller [facility] [address] [facility] [place] [address] 11/07/2023 Clint Miller Morbid obesity E66.0 1 [facility] [address] [facility] [address] [place] [address] 11/07/2023 Clint Miller [facility] [address] [facility] [address] [place] [address] 11/22/2023 Clint Miller [facility] [address] [facility] [address] [place] [address] 12/18/2023 Clint Miller [facility] [address] [facility] [address] [place] [address] 01/03/2024 Clint Miller [facility] [address] [facility] [address] [place] [address] 01/30/2024 Clint Miller [facility] [address] [facility] [address] [place] [address] 03/04/2024 Clint Miller Morbid obesity E66.0 1 [facility] [address] [facility] [address] [place] [address] 04/23/2024 Clint Miller [facility] [address] [facility] [address] [place] [address] 05/24/2024 [facility] [address] [address] 06/24/2024 [facility] [address] [address] 07/18/2024 Clint Miller Assessments Encounter Date Diagnosis (ICD Code) Assessment Notes Treatment Notes Treatment Clinical Notes Section Notes 07/01/2024 Primary hypertension (ICD-10 - I10) 06/24/2024 Morbid obesity (ICD-10 - E66.01) 05/24/2024 Primary hypertension (ICD-10 - I10) High Blood Pressure: Care Instructions material was published 04/23/2024 Morbid obesity (ICD-10 - E66.01) 04/22/2024 Primary hypertension (ICD-10 - I10) High Blood Pressure: Care Instructions material was published 03/25/2024 Primary hypertension (ICD-10 - I10) High Blood Pressure: Care Instructions material was published 03/04/2024 Morbid obesity (ICD-10 - E66.01) 12/18/2023 Other hyperlipidemia (ICD-10 - E78.49) 12/18/2023 Primary hypertension (ICD-10 - I10) High Blood Pressure: Care Instructions material was published 12/06/2023 Morbid obesity (ICD-10 - E66.01) 12/06/2023 Morbid obesity (ICD-10 - E66.01) 02/29/2024 Primary hypertension (ICD-10 - I10) High Blood Pressure: Care Instructions material was published 12/04/2023 Primary hypertension (ICD-10 - I10) High Blood Pressure: Care Instructions material was published 11/07/2023 Morbid obesity (ICD-10 - E66.01) 11/06/2023 Primary hypertension (ICD-10 - I10) High Blood Pressure: Care Instructions material was published 10/12/2023 Primary hypertension (ICD-10 - I10) High Blood Pressure: Care Instructions material was published 09/18/2023 Primary hypertension (ICD-10 - I10) High Blood Pressure: Care Instructions material was published 09/04/2023 Primary hypertension (ICD-10 - I10) 08/21/2023 Primary hypertension (ICD-10 - I10) High Blood Pressure: Care Instructions material was published 08/09/2023 Primary osteoarthritis of right knee (ICD-10 - M17.11) Arthritis: Care Instructions material was published to portal 08/09/2023 Primary osteoarthritis of right hip (ICD-10 - M16.11) 08/09/2023 Bipolar affective disorder, remission status unspecified (ICD-10 - F31.9) 08/21/2023 Other hyperlipidemia (ICD-10 - E78.49) 09/04/2023 Other hyperlipidemia (ICD-10 - E78.49) 10/12/2023 Other hyperlipidemia (ICD-10 - E78.49) 09/18/2023 Other hyperlipidemia (ICD-10 - E78.49) 12/04/2023 Other hyperlipidemia (ICD-10 - E78.49) 11/06/2023 Other hyperlipidemia (ICD-10 - E78.49) 12/18/2023 Iron deficiency anemia (ICD-10 - D50.9) 03/25/2024 Other hyperlipidemia (ICD-10 - E78.49) 02/29/2024 Other hyperlipidemia (ICD-10 - E78.49) 04/22/2024 Other hyperlipidemia (ICD-10 - E78.49) 05/24/2024 Other hyperlipidemia (ICD-10 - E78.49) 07/01/2024 Other hyperlipidemia (ICD-10 - E78.49) 07/01/2024 Morbid obesity (ICD-10 - E66.01) Starting a Weight-Loss Plan: Care Instructions material was published 05/24/2024 Morbid obesity (ICD-10 - E66.01) 04/22/2024 Morbid obesity (ICD-10 - E66.01) 03/25/2024 Primary osteoarthritis of right knee (ICD-10 - M17.11) 02/29/2024 Primary osteoarthritis of right knee (ICD-10 - M17.11) 12/18/2023 Morbid obesity (ICD-10 - E66.01) 11/06/2023 Morbid obesity (ICD-10 - E66.01) 12/04/2023 Morbid obesity (ICD-10 - E66.01) 10/12/2023 Morbid obesity (ICD-10 - E66.01) 09/18/2023 Lumbar spondylosis (ICD-10 - M47.816) 09/04/2023 Lumbar spondylosis (ICD-10 - M47.816) 08/21/2023 Lumbar spondylosis (ICD-10 - M47.816) 08/09/2023 Anemia, unspecified type (ICD-10 - D64.9) 08/09/2023 Iron deficiency (ICD-10 - E61.1) 08/21/2023 Anemia, unspecified type (ICD-10 - D64.9) 09/04/2023 Bipolar affective disorder, remission status unspecified (ICD-10 - F31.9) 09/18/2023 Morbid obesity (ICD-10 - E66.01) 11/06/2023 Bipolar affective disorder, remission status unspecified (ICD-10 - F31.9) 10/12/2023 Pharyngitis (ICD-10 - J02.9) 12/04/2023 Lumbar spondylosis (ICD-10 - M47.816) 02/29/2024 Morbid obesity (ICD-10 - E66.01) 03/25/2024 Morbid obesity (ICD-10 - E66.01) 05/24/2024 Bipolar affective disorder, remission status unspecified (ICD-10 - F31.9) 04/22/2024 Bipolar affective disorder, remission status unspecified (ICD-10 - F31.9) 07/01/2024 Bipolar affective disorder, remission status unspecified (ICD-10 - F31.9) 07/01/2024 Lumbar back pain (ICD-10 - M54.50) 05/24/2024 Bariatric surgery status (ICD-10 - Z98.84) 04/22/2024 Lumbar back pain (ICD-10 - M54.50) 09/04/2023 Morbid obesity (ICD-10 - E66.01) Body Mass Index: Care Instructions material was published 09/18/2023 Bipolar affective disorder, remission status unspecified (ICD-10 - F31.9) 08/21/2023 Iron deficiency (ICD-10 - E61.1) 08/09/2023 Morbid obesity (ICD-10 - E66.01) 08/09/2023 Bariatric surgery status (ICD-10 - Z98.84) 08/21/2023 Bipolar affective disorder, remission status unspecified (ICD-10 - F31.9) 05/24/2024 Primary osteoarthritis of right knee (ICD-10 - M17.11) 08/21/2023 Lumbar back pain (ICD-10 - M54.50) 08/09/2023 Family history of diabetes mellitus (DM) (ICD-10 - Z83.3) 08/21/2023 Morbid obesity (ICD-10 - E66.01) 08/09/2023 Lumbar back pain (ICD-10 - M54.50) 08/09/2023 Primary hypertension (ICD-10 - I10) Plan Of Treatment Next Appt Details Provider Name:Clint andersen, 07/22/2024 03:45:00 PM, [address] [facility], [address], [place], [address], Insurance Providers Payer Name Payer Address Payer Phone Subscriber Number Group Number Insured Name Patient Relationship to Insured Coverage Start Date Coverage End Date [facility] 121 PPO [address] [place], [place] [id number] ALONSO KUNZ Self - patient is the insured [address] [place], [place] [id number] ALONSO KUNZ Self - patient is the insured Medications Administered Medication Instructions Date of Administration Dosage Notes Depo Medrol 80mg 02/29/2024 80 mg Right Kn ee Injection Medical (General) History Medical History History ICD Code Bipolar Iron defiency Surgical History Surgery Date(Month/Year) Gastric bypass 2019 C/Section 2005 Hospitalization History Reason Date(Month/Year) see above Vaginal delivery 1990
--- OUTSIDE RECORDS SUMMARY | 2024-07-19 07:15 | XMS_ITS | Continuity of Care Document ---
Author Name [facility] Organization [facility] Care Team Providers Care Concrete Paver Name Role Phone [facility] Unavailable Unavailable Problems Combined list of problems from [facility] and [facility] facilities. It does not include entries that were removed or entered in error. Problem Status Onset Date Problem Type Date of Resolution Comments Source Diagnosis: ICD-10-CM Z23 Encounter for immunization Active Diagnosis [facility] Diagnosis: ICD-10-CM Z13.89 Encounter for screening for other disorder Active Diagnosis [facility] Diagnosis: ICD-10-CM S83.011S Lateral subluxation of right patella, sequela Active Diagnosis [facility] Diagnosis: ICD-10-CM M23.8X1 Other internal derangements of right knee Active Diagnosis [facility] Diagnosis: ICD-10-CM Z51.89 Encounter for other specified aftercare Active Diagnosis [facility] Diagnosis: ICD-10-CM M17.9 Osteoarthritis of knee, unspecified Active Diagnosis [facility] Medications Combined list of outpatient medications from [facility] and [facility] facilities.Medications provided include 1) outpatient medications [...] RULER ATTACHED INSIDE BOX) TOPICA L 05/19/2023 [id number] NICK PACKER 2023 100 [facility] MELOXICAM 7.5MG TAB TAKE ONE TABLET BY MOUTH ONCE A DAY FOR PAIN ORAL 05/19/2023 [id number] NICK PACKER 2023 14 [facility] Immunizations Combined list of available immunizations from the Department of Defense and Veterans Affairs facilities. Immunization Series Date Given Administered By Site Reaction Lot Number CVX Code Drug Neurology Nurse Status Comments Source COVID-19 (PFIZER), MRNA, LNP-S, PF, ROSANGELA-SUCROSE, 30 MCG/0.3 ML (AGES 12+ YEARS) 2023 CARMITA CAPUTO LEFT DELTO ID [id number] 309 complet ed [facility] INFLUENZA, SPLIT VIRUS, TRIVALENT, PF 2023 CARMITA CAPUTO RIGHT DELTO ID [id number] 140 complet ed ADMINISTE [facility] AT [facility] INFLUENZA, INJECTABLE, QUADRIVALENT, PRESERVATIVE FREE 2022 LUCRETIA CABRERA LEFT DELTO ID [id number] 150 complet ed ADMINISTE [facility] AT [facility] INFLUENZA, INJECTABLE, QUADRIVALENT, PRESERVATIVE FREE 2021 150 complet ed [facility] INFLUENZA, INJECTABLE, QUADRIVALENT, PRESERVATIVE FREE 2020 150 complet ed [facility] INFLUENZA, INJECTABLE, QUADRIVALENT, PRESERVATIVE FREE 2019 150 complet ed [facility] INFLUENZA, INJECTABLE, QUADRIVALENT, PRESERVATIVE FREE 2018 150 complet ed [facility] INFLUENZA, INJECTABLE, QUADRIVALENT, PRESERVATIVE FREE 2017 150 complet ed [facility] HEP B, ADULT [address] [facility] MMR 2015 03 complet ed [facility] HEP B, ADULT [address] [facility] MMR 2014 03 complet ed [facility] HEP [facility], AD[facility] 2014 43 complet ed [facility] Encounters Combined list of: 1) Encounters from Department of Veterans Affairs facilities going backup to the last 18 months, not all [place] inpatient encounters are included; 2) Encounters from the Department of Defense facilities going backup to 280 months. Location Location Details Encounter Type Encounter Number Reason For Visit Attending Provider ADM Date DC Date Status Disposition Source [facility] OFFICE O/P EST MOD 30 MIN [id number] Diagnos is: ICD-10- CM M17.9 Osteoar thritis of knee, unspeci fied NICK PACKER 04/19 [facility] BELT STRAP SLEEV GRMNT COVER [id number] Diagnos is: ICD-10- CM Z51.89 Encount er for other specifi ed afterca DIOMEDES Nieto SE 04/19 [facility] OFFICE O/P EST MOD 30 MIN [id number] [id number] Diagnos is: ICD-10- CM M23.8X1 Other interna l derange ments of right knee NICK PACKER 04/25 [facility] Outpatient Encounter [id number] 05/02 [facility] PATIENT EDUCATION MATERIALS [id number] Diagnos is: ICD-10- CM S83.011 S Lateral subluxa tion of right patella , sequela RYNE CAPUTO 05/04 [facility] Outpatient Encounter [id number] Diagnos is: ICD-10- CM Z13.89 Encount er for screeni ng for other disorde AKBAR Hunter 06/13 [facility] Kan [facility] IMMUNIZATI ON ADMIN [id number] Diagnos is: ICD-10- CM Z23 Encount er for immuniz RYNE Myers 01/04 [facility] N
--- OUTSIDE RECORDS SUMMARY | 2024-07-19 07:16 | XMS_ITS | Clinical Summary ---
Author Organization [facility] Rm Chulilia Address [address] [place] [address] Care Team Providers Care Vice President Fixed Income Name Role Phone Lincoln Freedman MD Primary [...] Encounters Date Type Department Care Team Description 07/11/2024 External Device Data ST[facility] ABSTRACTION Provider, Abstract 07/10/2024 External Device Data [facility] ABSTRACTION Provider, Abstract 07/09/2024 External Device Data [facility] ABSTRACTION Provider, Abstract 06/25/2024 External Device Data [facility] ABSTRACTION Provider, [...] Comments Blood Pressure 122/85 03/04/2024 8:59 AM PADDED PRODUCTS FINISHER Pulse 82 03/04/2024 8:59 AM PADDED PRODUCTS FINISHER Temperature 36.3 C (97.4 F) 03/04/2024 8:59 AM PADDED PRODUCTS FINISHER Respiratory Rate 16 03/04/2024 8:59 AM PADDED PRODUCTS FINISHER Oxygen Saturation 96% 03/04/2024 8:59 AM PADDED PRODUCTS FINISHER Inhaled Oxygen Concentration - - Weight 126.6 kg (279 lb 3.2 oz) 03/04/2024 8:59 AM PADDED PRODUCTS FINISHER Height 167.6 cm (5' 6) 05/15/2023 1:18 PM CDT Body Mass Index 45.06 05/15/2023 1:18 PM CDT Plan of Treatment Upcoming Encounters Date Type Department Care Team (Late st Contact Info) Description 08/26/2024 3:45 PM CDT Office Visit [facility] Oncology and Hematology - [place] [address] [place] [address] Arian Leonard MD [address] [facility] [address] [place] [address] Health Maintenance Due Date Last Done Comments [...] 2015 ZOSTER VACCINE (1 of 2) 2020 COVID-19 Vaccine Completed 01/05/2024 INFLUENZA VACCINE Completed 01/05/2024, , 12/22/2021, Additional history exists Insurance [facility] Care Teams Vice President Fixed Income Relationship Specialty Start Date End Date Lincoln Freedman MD [address] [place] [address] PCP - General Family Practice 10/12/18
--- OUTSIDE RECORDS SUMMARY | 2024-07-19 07:16 | XMS_ITS ---
Author Organization [facility] Address [address] [address] Care Team Providers Care Building Mover Name Role Phone Clint Miller Primary Care Provider Allergies No Known Allergies REASON FOR VISIT F/U HTN Medications Medication SIG (Take, Route, Frequency, Duration) Notes Start Date End Date Status Atorvastatin Calcium 10 MG TAKE 1 TABLET BY MOUTH DAILY AT BEDTIME for 90 Active traMADol HCl 50 MG 1 tablet Orally every 6 hours for 14 days As needed 06/24/2024 Active Amoxicillin [...] B Y MOUTH DAILY for 90 Active Potassium 99 MG 1 tablet Orally Once a day Active Vitamin B12 1000 MCG 1 tablet Orally Onc e a day Active Wegovy 1.7 MG/0.75ML 0.75 mL Subcutaneou s Once a week for 28 days Active Fish Oil 1000 MG [...] ple Encounters Encounter Location Date Provider Diagnosis [facility] [address] [facility] [address] [place] [address] 07/01/2024 Clint Miller Primary hypertension I10 ; [...] s Once a week for 28 days Treatment Notes Assessment Notes Morbid obesity Starting a Weight-Lo ss Plan: Care Instructions material was published Next Appt Details Provider Name:Clint andersen, 07/22/2024 03:45:00 PM, [address] [facility], [address], [place], [address], Progress Notes * LEIDY KUNZ:1970 (54 yo F)Acc No.[id number]:07/01/2024 Progress Notes Patient: ALONSO HARE Provider: Robson Miller M.D. :1970 A ge:54 Y S ex:Female Date:07/01/2024 Address:[address] [place] [address] Subjective: * Chief Complaints: * 1 . [...] Pending * Provider: Robson Miller M.D. Date: 07/01/2024 Generated for Carson lópez/Penelope/Raquel on: 07/19/2024 08:15 AM EDT
--- OUTSIDE RECORDS SUMMARY | 2024-07-19 07:16 | XMS_ITS ---
Author Organization [facility] Address [address] [facility] [address] [place] [address] Care Team Providers Care Correction Officer Penitentiary Name Role Phone Clint Miller Primary Care Provider [phone] Encounters Encounter Location Date Provider Diagnosis [facility] [address] [facility] [address] [place] [address] 05/27/2024 Clint Miller Plan Of Treatment Next Appt Details Provider Name:Clint andersen, 07/22/2024 03:45:00 PM, [address] [facility], [address], [place], [address], Progress Notes * WOODYNIRALI ALONSODOB:1970 (54 yo F)Acc No.[id number]:05/27/2024 Progress Notes Patient: ALONSO HARE Provider: Robson Miller M.D. :1970 A ge:54 Y S ex:Female Date:05/27/2024 Address:[address] [place], [place] [id number] Subjective: * Chief Complaints: * * Medical History: Objective: * Vitals: Assessment: Plan: * Treatment: * * Electronic signature of Mary Miller MD on 07/19/2024 at 08:15 AM EDT Sign off status: Pending * Provider: Robson Miller M.D. Date: 0 05/27/2024 Generated for Carson ng/Faxing/eTransmitting on: 0 07/19/2024 08:15 AM EDT
[2024-07-19 08:00] LABS: Hematocrit 36.8 % (37.0-47.0); Hemoglobin 11.2 g/dL (12.0-15.0); Mean Corpuscular HGB Conc 30.4 g/dl (32-36); Mean Corpuscular Hemoglobin 28.2 pg (26-34); Mean Corpuscular Volume 92.7 fl (80-100); Mean Platelet Volume 9.1 fl (7.4-10.4); Platelet Count Result 426 k/mm3 (150-375); Red Blood Count 3.97 M/mm3 (4.2-5.4); Red Cell Distribution Width 14.7 % (11.5-14.5); White Blood Count 7.8 K/mm3 (4.5-10.0)
[2024-07-19 08:16] LABS: Anion Gap 7 mmol/L (4-12); Blood Urea Nitrogen 19 mg/dL (7-17); Calcium 9.2 mg/dL (8.4-10.2); Carbon Dioxide 27 mmol/L (22-30); Chloride 107 mmol/L (98-107); Estimated Glomerular Filt Rate > 60; Glucose 105 mg/dL (65-110); Sodium 141 mmol/L (137-145)
== END 2024-07-19 07:13 | disposition home or self-care (01) ==
LOC: ANHLAB 07:14
PROVIDERS: PCP Family Medicine; Visit Provider Internal Medicine
DX: D50.9 Iron deficiency anemia, unspecified (principal); F31.9 Bipolar disorder, unspecified; E66.01 Morbid (severe) obesity due to excess calories
CPT/HCPCS: 36415; 80048; 85027

== ENCOUNTER 2024-08-16 15:45 | Outpatient (CLI) | payer BC, OTHER, SELFPAY ==
[2024-08-16 16:20] LABS: Hematocrit 33.8 % (37.0-47.0); Hemoglobin 10.1 g/dL (12.0-15.0); Mean Corpuscular HGB Conc 29.9 g/dl (32-36); Mean Corpuscular Hemoglobin 28.2 pg (26-34); Mean Corpuscular Volume 94.4 fl (80-100); Mean Platelet Volume 8.8 fl (7.4-10.4); Platelet Count Result 390 k/mm3 (150-375); Red Blood Count 3.58 M/mm3 (4.2-5.4); Red Cell Distribution Width 15.5 % (11.5-14.5); White Blood Count 8.9 K/mm3 (4.5-10.0)
[2024-08-16 16:45] LABS: Iron 36 ug/dL (37-170)
[2024-08-16 16:46] LABS: Anion Gap 10 mmol/L (4-12); Blood Urea Nitrogen 13 mg/dL (7-17); Carbon Dioxide 24 mmol/L (22-30); Chloride 106 mmol/L (98-107); Estimated Glomerular Filt Rate > 60; Glucose 87 mg/dL (65-110); Potassium 3.6 mmol/L (3.4-5.0); Sodium 140 mmol/L (137-145)
[2024-08-16 16:55] LABS: Percent Iron Saturation 10 % (20-50)
[2024-08-16 17:53] LABS: Folic Acid 17.4 ng/mL (2.76->20); Vitamin B12 > 1000.0 pg/mL (239-931)
== END 2024-08-16 15:46 | disposition home or self-care (01) ==
PROVIDERS: PCP Family Medicine; Referring Provider Internal Medicine Hematology & Oncology; Visit Provider Internal Medicine
DX: D64.9 Anemia, unspecified (principal); I10 Essential (primary) hypertension; E78.9 Disorder of lipoprotein metabolism, unspecified
CPT/HCPCS: 36415; 80048; 82607; 82728; 82746; 83540; 83550; 85027

== ENCOUNTER 2024-10-22 07:30 | Outpatient (CLI) | payer BC, OTHER, SELFPAY ==
--- OUTSIDE RECORDS SUMMARY | 2024-07-01 10:45 | XMS_ITS ---
Author Organization [facility] Address [address] [address] Care Team Providers Care Reducing System Operator Name Role Phone Clint Miller Primary Care Provider Allergies No Known Allergies REASON FOR VISIT F/U HTN Medications Medication SIG (Take, Route, Frequency, Duration) Notes Start Date End Date Status Atorvastatin Calcium 10 MG TAKE 1 TABLET BY MOUTH DAILY AT BEDTIME; Duration: 90 Active traMADol HCl 50 MG 1 tablet Orally every 6 hours; Duration: 14 days As needed 06/24/2024 Active Amoxicillin 500 MG 1 capsule Orally eduarda ry 8 hrs; Duration: 7 days 10/12/2023 Not-Taking Paxlovid (300/100) 20 x 150 MG & 10 x 100MG 3 tablets Orally Twice a day; Duration: 5 days 10/13/2023 Not-Taking Multivitamin Adults 50+ - 1 tablet Orally Every other day Not-Taking Ferrous Sulfate 220 (44 Fe) MG/5ML 5 mL Orally Twice a day Acti ve Latuda 80 MG 1 tablet in the even ing with food Orally Once a day Active Losartan Potassium 25 MG TAKE 1 TABLET B Y MOUTH DAILY; Duration: 90 Active Potassium 99 MG 1 tablet Orally Once a day Active Vitamin B12 1000 MCG 1 tablet Orally Onc e a day Active Wegovy 1.7 MG/0.75ML 0.75 mL Subcutaneou s Once a week; Duration: 28 days Active Fish Oil 1000 MG 1 capsule Orally Onc e a day Not-Taking Social History Tobacco Use: Social History [...] Points 2 Interpretation Negative Vital Signs Temperature 98.1 degrees Fahrenheit 07/02/19 25 Blood pressure systolic 120 mm Hg 07/02/19 25 Blood pressure diastolic 82 mm Hg 025 Heart Rate 79 /min 07/01/2024 Respiratory Rate 16 /min 07/01/2024 Height 66 in 07/01/2024 Weight 261 lbs 07/01/2024 BMI 42.12 kg/m2 07/01/2024 Oximetry 100 % 07/01/2024 ple Encounters Encounter Location Date Provider Diagnosis [facility] [address] [facility] [address] [place] [address] 07/01/2024 Clint Miller Primary hypertension I10 ; Other hyperlipidemia E78.49 ; Morbid obesity E66.01 ; Bipolar affective disorder, remission status unspecified F31.9 and Lumbar back pain M54.50 Assessments Encounter Date Diagnosis (ICD Code) Assessment Notes Treatment Notes Treatment Clinical Notes Section Notes 07/01/2024 Primary hypertension (ICD-10 - I10) 07/01/2024 Other hyperlipidemia (ICD-10 - E78.49) 07/01/2024 Morbid obesity (ICD-10 - E66.01) Starting a Weight-Loss Plan: Care Instructions material was published 07/01/2024 Bipolar affective disorder, remission status unspecified (ICD-10 - F31.9) 07/01/2024 Lumbar back pain (ICD-10 - M54.50) Plan Of Treatment Medication Medication Name Sig Start Date Stop Date Notes Wegovy 1.7 MG/0.75ML 0.75 mL Subcutaneou s Once a week; Duration: 28 days Treatment Notes Assessment Notes Morbid obesity Starting a Weight-Lo ss Plan: Care Instructions material was published Next Appt Details Provider Name:Clint andersen, 10/28/2024 03:30:00 PM, [address] [facility], [place], [address], Progress Notes * FLORA KUNZB:1970 (54 yo F)Acc No.[id number]:07/01/2024 Progress Notes Patient: ALONSO HARE Provider: Robson Miller M.D. :1970 A ge:54 Y S ex:Female Date:07/01/2024 Address:[address] [place] [address] Subjective: * Chief Complaints: * 1 . [...] tablet Orally Once a day , Taking Vitamin B12 1000 MCG Tablet [...] tablet Orally every 6 hours As needed, Taking Wegovy 1 MG/0.5ML Solution Auto-injector 0.5 [...] Allergies: N .K.D.A. Objective: * Vitals: T emp:98.1F, HR:79/min, BP:120/82mm Hg, Wt:261lbs, BMI:42.12Index, Ht: 66 in, RR:16/min, Oxygen sat %:100%, Peak Flow:RA, Ht-cm: 167.64 cm, Wt-k.39 kg. ple. Assessment: * Assessment: 1. P [...] Electronic signature of Mary Miller MD on 10/22/2024 at 08:41 AM EDT Sign off status: Pending * Provider: Robson Miller M.D. Date: 0 07/01/2024 Generated for Carson lópez/Penelope/Raquel on: 0 10/22/2024 08:41 AM EDT
--- OUTSIDE RECORDS SUMMARY | 2024-08-12 21:43 | XMS_ITS | Continuity of Care Document ---
Author Name [facility] Organization [facility] Care Team Providers Care Regional Tanker Truck Driver Name Role Phone [facility] Unavailable Unavailable Problems Combined list of problems from Department of [facility] and [facility] facilities. It does not include entries that were removed or entered in error. Problem Status Onset Date Problem Type Date of Resolution Comments Source Diagnosis: ICD-10-CM Z23 Encounter for immunization Active Diagnosis [facility] Diagnosis: ICD-10-CM Z13.89 Encounter for screening for other disorder Active Diagnosis [facility] Diagnosis: ICD-10-CM S83.011S Lateral subluxation of right patella, sequela Active Diagnosis [facility] Diagnosis: ICD-10-CM M23.8X1 Other internal derangements of right knee Active Diagnosis [facility] Diagnosis: ICD-10-CM Z51.89 Encounter for other specified aftercare Active Diagnosis [facility] Diagnosis: ICD-10-CM M17.9 Osteoarthritis of knee, unspecified Active Diagnosis [facility] Immunizations Combined list of available immunizations from the Department of [facility] and [facility] facilities. Immunization Series Date Given Administered By Site Reaction Lot Number CVX Code Drug Guest Services Lead Status Comments Source COVID-19 (PFIZER), MRNA, LNP-S, PF, ROSANGELA-SUCROSE, 30 MCG/0.3 ML (AGES 12+ YEARS) 2023 CARMITA CAPUTO LEFT DELTO ID [id number] 309 complet ed [facility] INFLUENZA, SPLIT VIRUS, TRIVALENT, PF 2023 CARMITA CAPTUO RIGHT DELTO ID [id number] 140 complet ed [facility] INFLUENZA, INJECTABLE, QUADRIVALENT, PRESERVATIVE FREE 2022 LUCRETIA CABRERA LEFT DELTO ID [id number] A 150 complet ed [facility] INFLUENZA, INJECTABLE, QUADRIVALENT, PRESERVATIVE FREE 2021 150 complet ed [facility] INFLUENZA, INJECTABLE, QUADRIVALENT, PRESERVATIVE FREE 2020 150 complet ed [facility] INFLUENZA, INJECTABLE, QUADRIVALENT, PRESERVATIVE FREE 2019 150 complet ed [facility] INFLUENZA, INJECTABLE, QUADRIVALENT, PRESERVATIVE FREE 2018 150 complet ed [facility] INFLUENZA, INJECTABLE, QUADRIVALENT, PRESERVATIVE FREE 2017 150 complet ed [facility] HEP B, ADULT 2015 43 complet ed [facility] MMR 2015 03 complet ed [facility] HEP B, ADULT 2014 43 complet ed [facility] MMR 2014 03 complet ed [facility] HEP B, ADULT 2014 43 complet ed [facility] Encounters Combined list of: 1) Encounters from Department of Veterans Affairs facilities going backup to the last 18 months, not all [place] inpatient encounters are included; 2) Encounters from the Department of Defense facilities going backup to 280 months. Location Location Details Encounter Type Encounter Number Reason For Visit Attending Provider ADM Date DC Date Status Disposition Source [facility] OFFICE O/P EST MOD 30 MIN [id number] Diagnos is: ICD-10- CM M17.9 Osteoar thritis of knee, unspeci NICK Perkins 04/19 [facility] BELT STRAP SLEEV GRMNT COVER 10656-1.65 [id number] Diagnos is: ICD-10- CM Z51.89 Encount er for other specifi ed afterca re DIOMEDES APARICIO SE 04/19 [facility] N [facility] OFFICE O/P EST MOD 30 MIN 49750-4.90 [id number] Diagnos is: ICD-10- CM M23.8X1 Other interna l derange ments of right knee KANNICK ARMENTA 04/25 [facility] N [facility] Outpatient Encounter [id number] 05/02 [facility] PATIENT EDUCATION MATERIALS [id number] [id number] Diagnos is: ICD-10- CM S83.011 S Lateral subluxa tion of right patella , sequela RYNE CAPUTO 05/04 [facility] N [facility] Outpatient Encounter [id number] Diagnos is: ICD-10- CM Z13.89 Encount er for screeni ng for other disorde r AKBAR FELTON 06/13 [facility] IMMUNIZATI ON ADMIN [id number] [id number] Diagnos is: ICD-10- CM Z23 Encount er for immuniz ation RYNE CAPUTO 01/04 [facility]
--- OUTSIDE RECORDS SUMMARY | 2024-08-19 10:45 | XMS_ITS ---
Author Organization [facility] Address [address] [address] Care Team Providers Care Grocery Stock Clerk Name Role Phone Aamir Millerbbir Primary Care Provider Allergies No Known Allergies REASON FOR VISIT Video - F/U HTN, Consent given for video visit. -ple Medications Medication SIG (Take, Route, Frequency, Duration) Notes Start Date End Date Status traMADol HCl 50 MG 1 tablet Orally every 6 hours; Duration: 14 days As needed 08/05/2024 Active Amoxicillin 500 MG 1 capsule Orally eduarda ry 8 hrs; Duration: 7 days 10/12/2023 Unknown Paxlovid (300/100) 20 x 150 MG & 10 x 100MG 3 tablets Orally Twice a day; Duration: 5 days 10/13/2023 Unknown Multivitamin Adults 50+ - 1 tablet Orall y Every other day Unknown Fish Oil 1000 MG 1 capsule Orally Onc e a day Unknown Atorvastatin Calcium 10 MG TAKE 1 TABLET BY MOUTH DAILY AT BEDTIME; Duration: 90 Active Wegovy 1.7 MG/0.75ML 0.75 mL Subcutaneou s Once a week; Duration: 28 days Active Ferrous Sulfate 220 (44 [...] Interpretation Negative Vital Signs Height 66 in 08/19/2024 No vitals - Video appt -ple Encounters Encounter Location Date Provider Diagnosis [facility] [address] [facility] [address] [place] [address] 08/19/2024 Clint Miller Primary hypertension I10 ; Other hyperlipidemia E78.49 ; Morbid obesity E66.01 ; Iron deficiency anemia D50.9 and Chronic pain syndrome G89.4 Assessments Encounter Date Diagnosis (ICD Code) Assessment Notes Treatment Notes Treatment Clinical Notes Section Notes 08/19/2024 Primary hypertension (ICD-10 - I10) High Blood Pressure: Care Instructions material was published 08/19/2024 Other hyperlipidemia (ICD-10 - E78.49) 08/19/2024 Morbid obesity (ICD-10 - E66.01) 08/19/2024 Iron deficiency anemia (ICD-10 - D50.9) 08/19/2024 Chronic pain syndrome (ICD-10 - G89.4) Plan Of Treatment Treatment Notes Assessment Notes Primary hypertension High Blood Pressure : Care Instructions material was published Next Appt Details Provider Name:Clint Rutledgei ganesh, 10/28/2024 03:30:00 PM, [address] [facility], [address], [place], [address], Progress Notes * ALONSO KUNZDOB:1970 (54 yo F)Acc No.[id number]:08/19/2024 Progress Notes Patient: Betina ALONSO GARCIA Provider: Robson Miller M.D. :1970 A ge:54 Y S ex:Female Date:08/19/2024 Address:[address] [place] [address] Subjective: * Chief Complaints: * 1 . Video - F/U HTN. 2. Consent given for video visit. -ple. * Medical History: B ipolar, Iron defiency. [...] MOUTH DAILY AT BEDTIME , Taking Wegovy 1.7 MG/0.75ML Solution Auto-injector 0.75 mL Subcutaneous Once a week , Taking traMADol HCl 50 MG Tablet 1 tablet Orally every 6 hours As needed, Unknown Amoxicillin 500 MG Capsule 1 capsule Orally every 8 hrs , Unknown Paxlovid (300/100) 20 x 150 MG & 10 x 100MG Tablet Therapy Pack 3 tablets Orally Twice a day , Unknown Multivitamin Adults 50+ - Tablet 1 tablet Orally Every other day , Unknown Fish Oil 1000 MG Capsule 1 capsule Orally Once a day , Medication List reviewed and reconciled with the patient * Allergies: N .K.D.A. Objective: * Vitals: H t: 66 in, Ht-cm: 167.64 cm. No vitals - Video appt -ple. Assessment: * Assessment: 1. O ther hyperlipidemia - E78.49 2 . P rimary hypertension - I10 (Primary)? 3. M orbid obesity - E66.01 4 . I brad deficiency anemia - D50.9 5 . C hronic pain syndrome - G89.4 Plan: * Treatment: * Preventive Medicine: Your Preventative Wellness Plan: B reast Cancer Screening M ammogram should be performed every 24 months. STATUS: O rdered. Counseling: C are goal follow-up plan: A carlos alberto Normal BMI Follow-up G iving encouragement to exercise, Lifestyle education regarding diet. * * Electronic signature of Mary Miller MD on 10/22/2024 at 08:40 AM EDT Sign off status: Pending * Provider: Robson Miller M.D. Date: 0 08/19/2024 Generated for Carson lópez/Penelope/Luluitting on: 0 10/22/2024 08:40 AM EDT
--- OUTSIDE RECORDS SUMMARY | 2024-09-16 10:45 | XMS_ITS ---
Author Organization [facility] Address [address] [address] Care Team Providers Care Customer Relations Consultant Name Role Phone Clint Miller Primary Care Provider Allergies No Known Allergies REASON FOR VISIT F/U HTN, Pain meds eval/refill Medications Medication SIG (Take, Route, Frequency, Duration) Notes Start Date End Date Status Amoxicillin 500 MG 1 capsule Orally eduarda ry 8 hrs; Duration: 7 days 10/12/2023 Unknown traMADol HCl 50 MG 1 tablet Orally every 6 hours; Duration: 14 days As needed 08/19/2024 Active Multivitamin Adults 50+ - 1 tablet Orall y Every other day Unknown Paxlovid (300/100) 20 x 150 MG & 10 x 100MG 3 tablets Orally Twice a day; Duration: 5 days 10/13/2023 Unknown Fish Oil 1000 MG 1 capsule Orally Onc e a day Unknown Vitamin B12 1000 MCG 1 tablet Orally Onc e a day Active Latuda 80 MG 1 tablet in the even ing with food Orally Once a day Active Ferrous Sulfate 220 (44 Fe) MG/5ML 5 mL Orally Twice a day Acti ve Atorvastatin Calcium 10 MG TAKE 1 TABLET BY MOUTH DAILY AT BEDTIME; Duration: 90 Active Losartan Potassium 25 MG TAKE 1 TABLET B Y MOUTH DAILY; Duration: 90 Active Wegovy 1.7 MG/0.75ML 0.75 mL Subcutaneou s Once a week; Duration: 28 days Active Potassium 99 MG 1 [...] Negative Vital Signs Temperature 97.8 degrees Fahrenheit 09/17/19 25 Blood pressure systolic 130 mm Hg 09/17/19 25 Blood pressure diastolic 86 mm Hg 025 Heart Rate 76 /min 09/16/2024 Respiratory Rate 16 /min 09/16/2024 Height 66 in 09/16/2024 Weight 247 lbs 09/16/2024 BMI 39.86 kg/m2 09/16/2024 Oximetry 97 % 09/16/2024 TM/PLE Encounters Encounter Location Date Provider Diagnosis [facility] [address] [facility] [address] [place] [address] 09/16/2024 Clint Miller Primary hypertension I10 ; Other hyperlipidemia E78.49 ; Morbid obesity E66.01 ; Bipolar affective disorder, remission status unspecified F31.9 and Bariatric surgery status Z98.84 Assessments Encounter Date Diagnosis (ICD Code) Assessment Notes Treatment Notes Treatment Clinical Notes Section Notes 09/16/2024 Primary hypertension (ICD-10 - I10) 09/16/2024 Other hyperlipidemia (ICD-10 - E78.49) 09/16/2024 Morbid obesity (ICD-10 - E66.01) When You Want to Lose Weight: Care Instructions material was published 09/16/2024 Bipolar affective disorder, remission status unspecified (ICD-10 - F31.9) 09/16/2024 Bariatric surgery status (ICD-10 - Z98.84) Plan Of Treatment Medication Medication Name Sig Start Date Stop Date Notes Wegovy 1.7 MG/0.75ML 0.75 mL Subcutaneou s Once a week; Duration: 28 days Treatment Notes Assessment Notes Morbid obesity When You Want to Los e Weight: Care Instructions material was published Next Appt Details Provider Name:Clint andersen, 10/28/2024 03:30:00 PM, [address] [facility], [address], [place], [address], Progress Notes * MATKINS, TASHADOB:1970 (54 yo F)Acc No.[id number]:09/16/2024 Progress Notes Patient: ALONSO HARE Provider: Robson Miller M.D. :1970 A ge:54 Y S ex:Female Date:09/16/2024 Address:[address] [place] [address] Subjective: * Chief Complaints: * 1 . F/U HTN. 2. Pain meds eval/refill. * Medical History: B ipolar, Iron defiency. [...] N .K.D.A. Objective: * Vitals: T emp:97.8F, HR:76/min, BP:130/86mm Hg, Wt:247lbs, BMI:39.86Index, Ht: 66 in, RR:16/min, Oxygen sat %:97%, Peak Flow:RA, Ht-cm: 167.64 cm, Wt-k.04 kg. TM/PLE. Assessment: * Assessment: 1. P rimary hypertension - I10 (Primary) 2 . O ther hyperlipidemia - E78.49? 3. M orbid obesity - E66.01 4 . B ipolar affective disorder, remission status unspecified - F31.9 5 . B ariatric surgery status - Z98.84? Plan: * Treatment: * Preventive Medicine: Counseling: C are goal follow-up plan: A carlos alberto Normal BMI Follow-up G iving encouragement to exercise, Lifestyle education regarding diet. * * Electronic signature of Mary Miller MD on 10/22/2024 at 08:40 AM EDT Sign off status: Pending * Provider: Robson Miller M.D. Date: 09/16/2024 Generated for Carson lópez/Penelope/Raquel on: 10/22/2024 08:40 AM EDT
--- OUTSIDE RECORDS SUMMARY | 2024-09-30 10:30 | XMS_ITS ---
Author Organization [facility] Address [address] [address] Care Team Providers Care Nurse Anesthetist Name Role Phone Clint Miller Primary Care Provider Medications Medication SIG (Take, Route, Frequency, Duration) Notes Start Date End Date Status Potassium 99 MG 1 tablet Orally Once a day Active Losartan Potassium 25 MG TAKE 1 TABLET B Y MOUTH DAILY; Duration: 90 Active Latuda 80 MG 1 tablet in the even ing with food Orally Once a day Active Ferrous Sulfate 220 (44 Fe) MG/5ML 5 mL Orally Twice a day Acti ve Vitamin B12 1000 MCG 1 tablet Orally Onc e a day Active Wegovy 1.7 MG/0.75ML 0.75 mL Subcutaneou s Once a week; Duration: 28 days Active traMADol HCl 50 MG 1 tablet Orally every 6 hours; Duration: 30 days As needed 09/16/2024 Active Fish Oil 1000 MG 1 capsule Orally Onc e a day Unknown Multivitamin Adults 50+ - 1 tablet Orall y Every other day Unknown Paxlovid (300/100) 20 x 150 MG & 10 x 100MG 3 tablets Orally Twice a day; Duration: 5 days 10/13/2023 Unknown Amoxicillin 500 MG 1 capsule Orally eduarda ry 8 hrs; Duration: 7 days 10/12/2023 Unknown Atorvastatin Calcium 10 MG TAKE 1 TABLET BY MOUTH DAILY AT BEDTIME; Duration: 90 Active Encounters Encounter Location Date Provider Diagnosis [facility] [address] [place] [address] 09/30/2024 Clint Miller Plan Of Treatment Next Appt Details Provider Name:Clint andersen, 10/28/2024 03:30:00 PM, [address] [facility], [address], [place], [address], Progress Notes * ALONSO KUNZDOB:1970 (54 yo F)Acc No.[id number]:09/30/2024 Patient: ALONSO HARE Provider: Robson Miller M.D. :1970 A ge:54 Y S ex:Female Date:09/30/2024 Address:[address] [place] [address] Subjective: * Chief Complaints: * * Medical History: * Medications: T aking Potassium 99 MG [...] every 6 hours As needed, Taking Wegovy 1.7 MG/0.75ML Solution Auto-injector 0.75 mL Subcutaneous Once a week , Unknown Amoxicillin 500 MG Capsule 1 capsule Orally every 8 hrs , Unknown Paxlovid (300/100) 20 x 150 MG & 10 x 100MG Tablet Therapy Pack 3 tablets Orally Twice a day , Unknown Multivitamin Adults 50+ - Tablet 1 tablet Orally Every other day , Unknown Fish Oil 1000 MG Capsule 1 capsule Orally Once a day Objective: * Vitals: Assessment: Plan: * Treatment: * * Electronic signature of Mary Miller MD on 10/22/2024 at 08:40 AM EDT Sign off status: Pending * Provider: Robson Miller M.D. Date: 09/30/2024 Generated for Carson lópez/Penelope/Raquel on: 10/22/2024 08:40 AM EDT
--- OUTSIDE RECORDS SUMMARY | 2024-10-22 07:41 | XMS_ITS | Clinical Summary ---
Author Organization [facility] Rm Ramos Address [address] [place] [address] Care Team Providers Care Audio/Visual Operator Name Role Phone Lincoln Freedman MD Primary Care Provider Allergies No known active allergies Medications calcium carbonate/mich min D3 (CALCIUM 500 + D, D3, ORAL) Take by mouth. Ac tive Multivitamin Capsule Take by mouth. Activ e traMADol (ULTRAM) 50 mg tablet TK 1 T PO Q 12 H PRF PAIN 9 Active cholecalcifero l, Vitamin D3, 2,000 unit Tablet TK 1 [...] injection every 7 days. 4 Active cyanocobalamin (VITAMIN B-12) 500 mcg tablet Take 1 Tablet (500 mcg) by mouth daily. 90 Tablet 2 5 Active ferrous sulfate (IRON SULFATE) 220 mg (44 mg iron)/5 mL Elixir elixir Take 5 mL (220 mg) by mouth 2 times daily. 150 mL 1 5 Active ferrous sulfate (IRON SULFATE) 220 mg (44 mg iron)/5 mL Elixir elixir Take 5 mL (220 mg) by mouth 2 times daily. 150 mL 025 Discontin ued(Reord er) Active Problems Problem Noted Date Diagnosed Date Iron deficiency anemia 10/15/2018 Encounters Date Type Department Care Team Description 09/24/2024 External Device Data STL ABSTRACTION Provider, Abstract 09/23/2024 Refill [facility] Oncology and Hematology [facility] [address] [place] [address] Arian Leonard MD 09/04/2024 External Device Data STL ABSTRACTION Provider, Abstract 09/03/2024 External Device Data STL ABSTRACTION Provider, Abstract 08/26/2024 3:45 PM CDT Office Visit [facility] Oncology and [facility] [address] [place] [address] Arian Leonard MD Chronic anemia (Primary Dx); Iron deficiency anemia, unspecified iron deficiency anemia type 08/17/2024 Refill [facility] Oncology and [facility] [address] [place] [address] Arian Leonard MD 08/06/2024 External Device Data STL ABSTRACTION Provider, Abstract from Last 3 Months Family History Medical History Relation Name Comments Diabetes Mother Relation Name Status Comments Brother Alive Father Alive Mother Alive Sister Alive Social History Tobacco Use Types Packs/Day Years Used Date Smoking Tobacco: Never Smokeless Tobacco: Never Tobacco Cessation:Counseling Given: Not Answered Alcohol Use Standard Drinks/Week Comments Yes 0 (1 standard drink = 0.6 oz pur e alcohol) Comments No Sex and Gender Information Value Date Recorded Sex Assigned at Not on file Legal Sex Female 8:45 AM CDT Gender Identity Not on file Sexual Orientation Not on file Last Filed Vital Signs Vital Sign Reading Time Taken Comments Blood Pressure 117/83 08/26/2024 3:10 PM CDT Pulse 100 08/26/2024 3:10 PM CDT Temperature 36.5 C (97.7 F) 08/26/2024 3:10 PM CDT Respiratory Rate 16 08/26/2024 3:10 PM CDT Oxygen Saturation 98% 08/26/2024 3:1 0 PM CDT Inhaled Oxygen Concentration - - Weight 112.5 kg (248 lb) 08/26/2024 3:1 0 PM CDT Pt stated that this is the correct weight Height 167.6 cm (5' 6) 05/15/2023 1:18 PM CDT Body Mass Index 40.03 05/15/2023 1:18 PM CDT Plan of Treatment Upcoming Encounters Date Type Department Care Team (Late st Contact Info) Description 12/09/2024 3:30 PM CDT Office Visit [facility] Oncology and Hematology - [facility] [address] [facility] [address] [place] [address] Arian Leonard MD [address] [facility] [address] [place] [address] Health Maintenance Due Date Last [...] 2015 ZOSTER VACCINE (1 of 2) 2020 INFLUENZA VACCINE (#1) 2024 4, 12/16/2022, 12/22/2021, Additional history exists COVID-19 Vaccine Completed 01/05/2024 Insurance [facility] [employer] [facility] Care Teams Audio/Visual Operator Relationship Specialty Start Date End Date Lincoln Freedman MD [address] [place] [address] PCP - General Family Practice 10/12/18
--- OUTSIDE RECORDS SUMMARY | 2024-10-22 07:41 | XMS_ITS | Patient Health Record ---
Author Organization [facility] Address [address] [address] Care Team Providers Care Information Technology Internship Name Role Phone Aamir Millerbbir Primary Care Provider Allergies No Known Allergies Reason For Referral No Information Medications Medication SIG (Take, Route, Frequency, Duration) Notes Start Date End Date Status Potassium 99 MG 1 tablet Orally Once a day Active Wegovy 1.7 MG/0.75ML 0.75 [...] Problem Status W/U Status Risk Notes Problem Chronic pain syndrome (416734233) Chronic pain syndrome (G89.4) Active confirmed Problem History of bariatric surgical procedure (934932768) Bariatric surgery status (Z98.84) Active confirmed Problem Pharyngitis (701986323) Pharyngitis (J02.9) Active confirmed Problem Iron deficiency anemia (18767875) Iron deficiency anemia (D50.9) Active confirmed Problem Family history: Diabetes mellitus (393366956) Family history of diabetes mellitus (DM) (Z83.3) Active confirmed Problem Osteoarthritis of knee (087870597) Primary osteoarthritis of right knee (M17.11) Active confirmed Problem Morbid obesity (144038902) Morbid obesity (E66.01) Active confirmed Problem Lumbar spondylosis (402298415) Lumbar spondylosis (M47.816) Active confirmed Problem Localized, primary osteoarthritis of the pelvic region and thigh (387077229) Primary osteoarthritis of right hip (M16.11) Active confirmed Problem Hyperlipidemia (56261152) Other hyperlipidemia (E78.49) Active confirmed Problem Bipolar disorder (08315509) Bipolar affective disorder, remission status unspecified (F31.9) Active confirmed Problem Primary hypertension (36761758) Primary hypertension (I10) Active confirmed Problem Low back pain (finding) (490425235) Lumbar back pain (M54.50) Active confirmed Problem Vaginal candidiasis (55796863) Vaginal candidiasis (B37.31) Active confirmed Vital Signs Heart Rate 76 /min 09/16/2024 TM/PLE Temperature 97.8 degrees Fahrenheit 09/16/2024 TM/P LE Respiratory Rate 16 /min 09/16/2024 TM/PLE Blood pressure diastolic 86 mm Hg 09/16/2024 TM/ PLE Oximetry 97 % 09/16/2024 TM/PLE Height 66 in 09/16/2024 TM/PLE Blood pressure systolic 130 mm Hg 09/16/2024 TM/P LE Weight 247 lbs 09/16/2024 TM/PLE BMI 39.86 kg/m2 09/16/2024 TM/PLE Encounters Encounter Location Date Provider Diagnosis [facility] [address] [address] 11/06/2023 Clint Miller Primary hypertension I10 ; Other hyperlipidemia E78.49 ; Morbid obesity E66.01 and Bipolar affective disorder, remission status unspecified F31.9 [facility] [address] [address] 12/04/2023 Clint Miller Primary hypertension I10 ; Other hyperlipidemia E78.49 ; Morbid obesity E66.01 and Lumbar spondylosis M47.816 [facility] [address] [address] 12/18/2023 Clint Miller Primary hypertension I10 ; Other hyperlipidemia E78.49 ; Iron deficiency anemia D50.9 and Morbid obesity E66.01 [facility] [address] [address] 02/29/2024 Clint Miller Primary hypertension I10 ; Other hyperlipidemia E78.49 ; Primary osteoarthritis of right knee M17.11 and Morbid obesity E66.01 [facility] [address] [address] 03/25/2024 Clint Miller Primary hypertension I10 ; Other hyperlipidemia E78.49 ; Primary osteoarthritis of right knee M17.11 and Morbid obesity E66.01 [facility] [address] [address] 04/22/2024 Clint Miller Primary hypertension I10 ; Other hyperlipidemia E78.49 ; Morbid obesity E66.01 ; Bipolar affective disorder, remission status unspecified F31.9 and Lumbar back pain M54.50 [facility] [address] [address] 05/24/2024 Clint Miller Primary hypertension I10 ; Other hyperlipidemia E78.49 ; Morbid obesity E66.01 ; Bipolar affective disorder, remission status unspecified F31.9 ; Bariatric surgery status Z98.84 and Primary osteoarthritis of right knee M17.11 [facility] [address] [address] 07/01/2024 Clint Miller Primary hypertension I10 ; Other hyperlipidemia E78.49 ; Morbid obesity E66.01 ; Bipolar affective disorder, remission status unspecified F31.9 and Lumbar back pain M54.50 [facility] [address] [address] 07/22/2024 Clint Miller Primary hypertension I10 ; Other hyperlipidemia E78.49 ; Morbid obesity E66.01 ; Bipolar affective disorder, remission status unspecified F31.9 ; Primary osteoarthritis of right knee M17.11 and Chronic pain syndrome G89.4 [facility] [address] [address] 08/19/2024 Clint Miller Primary hypertension I10 ; Other hyperlipidemia E78.49 ; Morbid obesity E66.01 ; Iron deficiency anemia D50.9 and Chronic pain syndrome G89.4 [facility] [address] [address] 09/16/2024 Clint Miller Primary hypertension I10 ; Other hyperlipidemia E78.49 ; Morbid obesity E66.01 ; Bipolar affective disorder, remission status unspecified F31.9 and Bariatric surgery status Z98.84 [facility] [address] [address] 12/06/2023 Clint Imller Morbid obesity E66.0 1 [facility] [address] [address] 12/06/2023 Clint Miller Morbid obesity E66.0 1 [facility] [address] [address] 04/23/2024 Clint Miller Morbid obesity E66.0 1 [facility] [address] [address] 06/24/2024 Clint Miller Morbid obesity E66.0 1 [facility] [address] [address] 11/06/2023 Clint Miller [facility] [address] [address] 11/07/2023 Clint Miller Morbid obesity E66.0 1 [facility] [address] [place] [address] 11/07/2023 Clint Miller [facility] [address] [place] [address] 11/22/2023 Clint Miller [facility] [address] [place] [address] 12/18/2023 Clint Miller [facility] [address] [place] [address] 01/03/2024 Clint Miller [facility] [address] [facility] [address] [place] [address] 01/30/2024 Clint Miller [facility] [address] [facility] [address] [place] [address] 03/04/2024 Clint Miller Morbid obesity E66.0 1 [facility] [address] [place] [address] 04/23/2024 Clint Miller [facility] [address] [facility] [address] [place] [address] 05/24/2024 Clint Miller [facility] [address] [facility] [address] [place] [address] 06/24/2024 Clint Miller [facility] [address] [facility] [address] [place] [address] 07/18/2024 Clint Miller [facility] [address] [place] [address] 07/29/2024 Clint Miller Morbid obesity E66.0 1 [facility] [address] [facility] [address] [place] [address] 08/05/2024 Clint Miller [facility] [address] [facility] [address] [place] [address] 08/19/2024 Clint Miller [facility] [address] [place] [address] 09/16/2024 Clint Miller Assessments Encounter Date Diagnosis (ICD Code) Assessment Notes Treatment Notes Treatment Clinical Notes Section Notes 11/06/2023 Primary hypertension (ICD-10 - I10) High [...] published 06/24/2024 Morbid obesity (ICD-10 - E66.01) 07/01/2024 Primary hypertension (ICD-10 - I10) 07/22/2024 Other hyperlipidemia (ICD-10 - E78.49) 07/22/2024 Primary hypertension (ICD-10 - I10) High Blood Pressure: Care Instructions material was published 07/29/2024 Morbid obesity (ICD-10 - E66.01) 08/19/2024 Other hyperlipidemia (ICD-10 - E78.49) 08/19/2024 Primary hypertension (ICD-10 - I10) High Blood Pressure: Care Instructions material was published 09/16/2024 Primary hypertension (ICD-10 - I10) 09/16/2024 Other hyperlipidemia (ICD-10 - E78.49) 08/19/2024 Morbid obesity (ICD-10 - E66.01) 07/22/2024 Morbid obesity (ICD-10 - E66.01) 07/01/2024 Other hyperlipidemia (ICD-10 - E78.49) 03/25/2024 Other hyperlipidemia (ICD-10 - E78.49) 05/24/2024 Other hyperlipidemia (ICD-10 - E78.49) 04/22/2024 Other hyperlipidemia (ICD-10 - E78.49) 11/06/2023 Other hyperlipidemia (ICD-10 - E78.49) 12/04/2023 Other hyperlipidemia (ICD-10 - E78.49) 02/29/2024 Other hyperlipidemia (ICD-10 - E78.49) 12/18/2023 Iron deficiency anemia (ICD-10 - D50.9) 11/06/2023 Morbid obesity (ICD-10 - E66.01) 12/18/2023 Morbid obesity (ICD-10 - E66.01) 12/04/2023 Morbid obesity (ICD-10 - E66.01) 02/29/2024 Primary osteoarthritis of right knee (ICD-10 - M17.11) 04/22/2024 Morbid obesity (ICD-10 - E66.01) 03/25/2024 Primary osteoarthritis of right knee (ICD-10 - M17.11) 05/24/2024 Morbid obesity (ICD-10 - E66.01) 07/01/2024 Morbid obesity (ICD-10 - E66.01) Starting a Weight-Loss Plan: Care Instructions material was published 08/19/2024 Iron deficiency anemia (ICD-10 - D50.9) 07/22/2024 Bipolar affective disorder, remission status unspecified (ICD-10 - F31.9) 09/16/2024 Morbid obesity (ICD-10 - E66.01) When You Want to Lose Weight: Care Instructions material was published 09/16/2024 Bipolar affective disorder, remission status unspecified (ICD-10 - F31.9) 08/19/2024 Chronic pain syndrome (ICD-10 - G89.4) 07/01/2024 Bipolar affective disorder, remission status unspecified (ICD-10 - F31.9) 07/22/2024 Primary osteoarthritis of right knee (ICD-10 - M17.11) 05/24/2024 Bipolar affective disorder, remission status unspecified (ICD-10 - F31.9) 03/25/2024 Morbid obesity (ICD-10 - E66.01) 04/22/2024 Bipolar affective disorder, remission status unspecified (ICD-10 - F31.9) 02/29/2024 Morbid obesity (ICD-10 - E66.01) 11/06/2023 Bipolar affective disorder, remission status unspecified (ICD-10 - F31.9) 12/04/2023 Lumbar spondylosis (ICD-10 - M47.816) 05/24/2024 Bariatric surgery status (ICD-10 - Z98.84) 04/22/2024 Lumbar back pain (ICD-10 - M54.50) 07/01/2024 Lumbar back pain (ICD-10 - M54.50) 07/22/2024 Chronic pain syndrome (ICD-10 - G89.4) 09/16/2024 Bariatric surgery status (ICD-10 - Z98.84) 05/24/2024 Primary osteoarthritis of right knee (ICD-10 - M17.11) Plan Of Treatment Next Appt Details Provider Name:Clint andersen, 10/28/2024 03:30:00 PM, [address] [facility], [facility], [place], [address], Insurance Providers Payer Name Payer Address Payer Phone Subscriber Number Group Number Insured Name Patient Relationship to Insured Coverage Start Date Coverage End Date [id number] PPO [address] [place], [place] [id number] ALONSO KUNZ Self - patient is the insured [address] [place], [place] [id number] [phone] [id number] ALONSO KUNZ Self - patient is the insured Medications Administered Medication Instructions Date of Administration Dosage Notes Depo Medrol 80mg 02/29/2024 80 mg Right Kn ee Injection Medical (General) History Medical History History ICD Code Bipolar Iron defiency Surgical History Surgery Date(Month/Year) Gastric bypass 2019 C/Section 2005 Hospitalization History Reason Date(Month/Year) see above Vaginal delivery 1990
[2024-10-22 08:13] LABS: Hematocrit 38.4 % (37.0-47.0); Hemoglobin 11.7 g/dL (12.0-15.0); Mean Corpuscular HGB Conc 30.5 g/dl (32-36); Mean Corpuscular Hemoglobin 28.1 pg (26-34); Mean Corpuscular Volume 92.1 fl (80-100); Platelet Count Result 401 k/mm3 (150-375); Red Blood Count 4.17 M/mm3 (4.2-5.4); White Blood Count 8.1 K/mm3 (4.5-10.0)
[2024-10-22 08:32] LABS: Anion Gap 7 mmol/L (4-12); Blood Urea Nitrogen 17 mg/dL (7-17); Calcium 9.1 mg/dL (8.4-10.2); Carbon Dioxide 26 mmol/L (22-30); Chloride 106 mmol/L (98-107); Estimated Glomerular Filt Rate > 60; Glucose 92 mg/dL (65-110); Potassium 3.8 mmol/L (3.4-5.0); Sodium 139 mmol/L (137-145)
== END 2024-10-22 07:31 | disposition home or self-care (01) ==
LOC: ANHLAB 07:33
PROVIDERS: PCP Family Medicine; Visit Provider Internal Medicine
DX: D50.9 Iron deficiency anemia, unspecified (principal); E66.01 Morbid (severe) obesity due to excess calories; I10 Essential (primary) hypertension
CPT/HCPCS: 36415; 80048; 85027

== ENCOUNTER 2024-11-23 07:08 | Outpatient (CLI) | payer BC, OTHER, SELFPAY ==
[2024-11-23 08:01] LABS: Anion Gap 7 mmol/L (4-12); Blood Urea Nitrogen 14 mg/dL (7-17); Calcium 8.8 mg/dL (8.4-10.2); Carbon Dioxide 27 mmol/L (22-30); Chloride 106 mmol/L (98-107); Estimated Glomerular Filt Rate > 60; Glucose 92 mg/dL (65-110); Potassium 3.8 mmol/L (3.4-5.0); Sodium 140 mmol/L (137-145)
== END 2024-11-23 07:09 | disposition home or self-care (01) ==
LOC: ANHLAB 07:11
PROVIDERS: PCP Family Medicine; Visit Provider Internal Medicine
DX: E78.9 Disorder of lipoprotein metabolism, unspecified (principal); I10 Essential (primary) hypertension
CPT/HCPCS: 36415; 80048

== ENCOUNTER 2024-12-14 07:04 | Outpatient (CLI) | payer BC, OTHER, SELFPAY ==
[2024-12-14 08:35] LABS: Hematocrit 36.2 % (37.0-47.0); Hemoglobin 11.2 g/dL (12.0-15.0); Mean Corpuscular HGB Conc 30.9 g/dl (32-36); Mean Corpuscular Hemoglobin 28.7 pg (26-34); Mean Corpuscular Volume 92.8 fl (80-100); Platelet Count Result 393 k/mm3 (150-375); Red Blood Count 3.90 M/mm3 (4.2-5.4); White Blood Count 7.5 K/mm3 (4.5-10.0)
[2024-12-14 09:11] LABS: Iron 40 ug/dL (37-170)
[2024-12-14 09:23] LABS: Percent Iron Saturation 12 % (20-50)
[2024-12-14 09:33] LABS: Anion Gap 9 mmol/L (4-12); Blood Urea Nitrogen 16 mg/dL (7-17); Calcium 8.8 mg/dL (8.4-10.2); Carbon Dioxide 26 mmol/L (22-30); Chloride 103 mmol/L (98-107); Estimated Glomerular Filt Rate > 60; Glucose 97 mg/dL (65-110); Potassium 4.0 mmol/L (3.4-5.0); Sodium 138 mmol/L (137-145)
[2024-12-14 09:52] LABS: Ferritin 6.88 ng/mL (11.1-264)
[2024-12-14 10:50] LABS: Vitamin B12 > 1000.0 pg/mL (239-931)
== END 2024-12-14 07:05 | disposition home or self-care (01) ==
LOC: ANHLAB 07:07
PROVIDERS: PCP Family Medicine; Referring Provider Internal Medicine; Visit Provider Internal Medicine Hematology & Oncology
DX: D64.9 Anemia, unspecified (principal); I10 Essential (primary) hypertension; E78.49 Other hyperlipidemia; D50.9 Iron deficiency anemia, unspecified; E66.01 Morbid (severe) obesity due to excess calories; Z68.42 Body mass index [BMI] 45.0-49.9, adult
CPT/HCPCS: 36415; 80048; 82607; 82728; 82746; 83540; 83550; 85027